=== PATIENT | male | born 1935 | race Caucasian/White ===

== ENCOUNTER 2017-02-13 12:17 | Outpatient (POV) | payer MEDICARE, SELFPAY | END 2017-02-13 14:13 | disposition home or self-care (01) | PROVIDERS: PCP Podiatrist; Visit Provider Podiatrist | DX: L60.0 Ingrowing nail (principal); E11.8 Type 2 diabetes mellitus with unspecified complications | CPT/HCPCS: 11730; 99202; G0127 ==

== ENCOUNTER 2017-02-27 13:23 | Outpatient (POV) | payer MEDICARE, SELFPAY | END 2017-02-27 16:49 | disposition home or self-care (01) | PROVIDERS: Visit Provider Podiatrist | DX: L60.0 Ingrowing nail (principal); L03.031 Cellulitis of right toe; E11.8 Type 2 diabetes mellitus with unspecified complications | CPT/HCPCS: 99212 ==

== ENCOUNTER → 2017-07-21 12:46 | Outpatient (CLI) | payer MEDICARE, SELFPAY ==
--- NOTE | 2017-07-21 13:01 | FL_ITS ---
FL barium swallow modified: 07/21/2017 1:01 PM CLINICAL HISTORY: Oral pharyngeal dysphasia ORDERING PHYSICIAN: Torsten Triana MD PATIENT AGE: 81 years TECHNIQUE: Patient administered varying consistencies of barium contrast, while viewed in lateral position under real-time fluoroscopy with cine recording. FLUOROSCOPY TIME: 2 minutes and 10 seconds The study was performed in conjunction with speech pathologist. Please see that report & recommendations. FINDINGS: Patient was given varying consistencies of barium. There was minimal penetration with thin liquid wash after mechanical soft and regular consistencies. No aries tracheal aspiration IMPRESSION. Minimal penetration with thin liquid wash after mechanical soft irregular consistencies. Please see speech pathologist report and recommendations.
--- NOTE | 2017-07-21 14:40 | HMH.SLMBS2 ---
Speech & Language Evaluation Speech/Language Mod Barium Swallow Start: 07/21/17 14:27 Freq: once Status: Complete Protocol: Document 07/21/17 14:35 MANSOOR (Rec: 07/21/17 14:40 MANSOOR [id number]) [facility] [place] Recommendations Diet Dietary Recommendations Regular Thin Liquids Treatment/Strategies Treatment Recommendation Compens. Strategy Educat. Strategy/Precaution Recommend Sitting Upright (90 deg) Chin Tuck Small Bites and Sips Alternate Liquids/Solids Mod Barium Swallow Impressions Summary and Impressions Oral Phase Impression No Impairment (WFL) Oral Phase Summary No impairment noted Pharyngeal Phase Impression Minimal Impairment Pharyngeal Phase Summary Slight penetration with thin liquid wash after mechanical soft and regular consistencies Speech/Language MBS Assessment/Goals/Plan Assessment Date of Evaluation: 07/21/17 Evaluation Type Initial Certification Assessment/Problems Dysphagia Patient reports, coughing and feels like food is stuck Does Patient Qualify for Service No Qualify/Failure Comment Therapy not recommended at this time Plan Pt/Guardian verbally ack understanding Yes of dx/prognosis/goals G -code Required Yes G-CODES ST Current Status [id number] ST Current Status Modifier CI-At least 1% but less than 20% impaired, limited or restricted ST Goal Status [id number] ST Goal Status Modifier CI-At least 1% but less than 20% impaired, limited or restricted Education Instructions provided Alternate between bite and sip , take small bite and small sips throughout meal, tuck chin if you feel something is stuck , and complete laryngeal elevation exercises 20Xs per day to strengthen laryngeal elevation. Pt/Caregiver able to recall information Able to recall/restate Mod Barium Swallow Setup Exam Setup Radiologist Edwin Mendez Level of Consciousness Awake Appropriate Position (degrees) 90 Mod Barium Swallow-Lat View Textures Lateral View Food Presentation Thin Liquid via Cup Thin Liquid via Straw Pureed Food- Thin
== END ==
PROVIDERS: PCP Internal Medicine Adolescent Medicine; Visit Provider Internal Medicine Adolescent Medicine
DX: R13.12 Dysphagia, oropharyngeal phase (principal)
CPT/HCPCS: 70371; 92611

== ENCOUNTER 2017-08-04 10:53 | Outpatient (RCR) | payer MEDICARE, SELFPAY ==
--- NOTE | 2017-08-04 13:41 | HMH.SLDYSPHA ---
Speech & Language Evaluation Speech/Language Dysphagia Evaluation Start: 08/04/17 13:16 Freq: ONCE Status: Active Protocol: Document 08/04/17 13:16 MANSOOR (Rec: 08/04/17 13:40 MANSOOR [id number]) Dysphagia Assess/Goals/Plan Assessment Date of Evaluation: 08/04/17 Evaluation Type Initial Certification Assessment/Problems Dysphagia Does Patient Qualify for Service Yes Qualify/Failure Comment Mr. Shoemaker had MBS on 07/21/17 where he showed no signs of dysphagia. Mr. Shoemaker reports he continues to have difficulty swallowing Recommendations PHYSICIAN CERTIFICATION: The specified therapy services are required, authorized, and reviewed every 30 days. Pt will be seen # times/week 1 for # weeks 6 Diet Recommendations Normal Liquid Type Recommendations Normal/Thin SL Swallow Guidelines Standard Aspiration Prec. Dysphagia Swallow Precautions/Strategies Sitting Upright (90 deg) Turn Head Left Small Bites and Sips Alternate Liquids/Solids Plan Anticipate reaching STG in # weeks 4 Anticipate reaching LTG in # weeks 6 Pt/Guardian verbally ack understanding Yes of dx/prognosis/goals G -code Required Yes G-CODES ST Current Status [id number] ST Current Status Modifier CI-At least 1% but less than 20% impaired, limited or restricted ST Goal Status [id number] ST Goal Status Modifier CI-At least 1% but less than 20% impaired, limited or restricted STG-Asp Before/Tongue Control Produce a forceful fk/ at the end of 10 words in #trials STG-Asp During/Laryngeal Closure Use head rotation to R/L w/wo cues in # 2 trials Use Valsalva maneuver w/wo cues in # 10 trials STG-Asp Aft/Pyrif.-Laryn.Elevation Produce i/in continuous fashion, incl. 20 fasetto in # trials First Calender Worker Goals Diet regular with Liquids Thin Liquids Education Instructions provided Mr. Shoemaker was given HEP to target goals at home to improve swallowing Speech & Language HPI History Present Illness Is this evaluation r/t stroke? No General Information General Current Food Consistancy Regular Facial Symmetry Symmetrical Patient Orientation Person Place Time
== END 2017-08-04 10:54 | disposition home or self-care (01) ==
LOC: ST 10:53
PROVIDERS: PCP Internal Medicine Adolescent Medicine; Visit Provider Internal Medicine Adolescent Medicine
DX: R13.12 Dysphagia, oropharyngeal phase (principal)
CPT/HCPCS: 92610

== ENCOUNTER 2018-02-24 12:06 | Observation (INO) ==
--- NOTE | 2018-02-24 15:34 | Consult Report ---
History of Present Illness Consult date: 02/24/18 Requesting physician: Torsten Triana Consult reason: chest pain Chief complaint: Chest pain Additional Medical History:: 1. Angina Class 111 a. Woke up this am with non-radiating chest pain. b. Lasting 2-3 seconds. c. Resolves with rest. 2. Dyspnea a. Increasing with exertion. 3. CAD a. History of CABG x5 (unknown year) 4. Essential Hypertension a. Controlled 5. Diabetes a. Insulin Dependent ( several years) b. Brittle 6. Hyperlipidemia a. On statin therapy History of present illness: 82 year old male admitted to [facility] for atypical chest pain. Pt stated he was being evaluated in Dr. Triana office for various jonatan issues. Pt stated he started having sharp pains over the Left breast area (non-radiating) which began this morning. Pt stated the sharp pain resolved in 2-3 seconds. Stated 2-3 episodes of chest pain since this morning. Pt complains of increase shortness of breath with exertion. Pt stated that for the past few weeks, he has been having increase shortness of breath with daily activities. Stated swelling of the lower extremities. No edema noted of the lower extremities during this assessment. Denies palpitations or dizziness. 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 Pt is a non-smoker. Pt is an insulin dependent diabetic which he stated is controlled. History of hypertension. Does have history of hyperlipidemia. Initial ECG revealed Normal sinus rhythm with sinus arrhythmia, left anterior fascicular block, prolonged QT with heart rate of 89bpm. CXR results are pending at this time along with initial lab results. Pt stated he has been evaluated by Dr. Villanueva in the past. Pt has not had any cardiac workup for 1-2 years. Discussed case with Dr. Villanueva. Recommend Echo cardiogram and left heart catheterization due to pt's angina symptoms, diabetes and coronary artery disease. Discussed benefits and risk of heart catheterization with right radial access. Pt agreeable to procedure. Left heart catheterization will be scheduled in am on 02/25/[address] Villanueva. Echocardiogram will be obtained also. [facility] History Medical History: Reports:: Cancer, Diabetes Mellitus Type 2, Hyperlipidemia, Hypertension, Myocardial Infarction Other Medical History: Reports: Anemia, Arthritis, Other Other Surgeries: Yes: Other Amputation: No Fractures: No - *Social History Educational Level: Completed High School Smoking Status: Former smoker Tobacco Type: cigarettes Smoking End Date: 1989 Alcohol Intake: former Substance Use Type: denies use Occupational Status: retired Housing: house Household Members: spouse - Psychiatric History Expresses thoughts of harming self/others: None Suicide Plan Description: No Plan *Family Hx:: Unable to obtain Meds Home Medications Medication Instructions Recorded Confirmed Type aspirin 81 mg tablet,delayed 81 mg PO ONCE tab 04/24/17 History release atorvastatin 10 mg tablet 10 mg PO ONCE 04/24/17 History insulin U- 100 regular human 100 10 unit SUB-Q TID ml 04/24/17 History unit/mL injection solution insulin detemir (U-100) 100 30 unit SUB-Q QHS ml 04/24/17 History unit/mL (3 mL) subcutaneous pen multivitamin,sc-dfpm-cqtqqilo 1 tab PO ONCE 04/24/17 History tablet oxybutynin chloride ER 10 mg 10 mg PO ONCE 04/24/17 History tablet,extended release 24 hr citalopram 20 mg tablet 20 mg PO 90 Days tab 10/23/17 History Allergies Allergy/AdvReac Type Severity Reaction Status Date / Time No Known Allergies Allergy Unverified 10/23/17 11:18 Review of Systems - Review of Systems Review of systems:: pertinent systems reviewed and negative unless documented below - Constitutional Reports weakness - *Cardiovascular Reports chest pain, Reports chest pain with activity, Reports shortness of breath, Reports shortness of breath with activity, Reports leg swelling - *Respiratory Reports shortness of breath, Reports shortness of breath with activity, Denies cough, Denies wheezing - *Gastrointestinal Denies abdominal pain, Denies bloating, Denies loose stools - *Musculoskeletal Reports muscle weakness, Denies abnormal walking, Denies numbness - Integumentary/Breasts Denies bleeding lesions, Denies rash - *Neurologic Reports weakness, Denies abnormal walking, Denies abnormal hearing, Denies dizziness, Denies numbness, Denies dizziness - Psychiatric Denies abnormal sleep pattern, Denies thoughts of hurting/killing yourself - Endocrine Denies rapid, pounding, or irregular heartbeat Exam Vital signs and Labs for Last 24 Hours: Temp Pulse Resp BP Pulse Ox 98.8 F 92 H 18 135/67 96 02/24/18 13:26 02/24/18 13:26 02/24/18 13:26 02/24/18 13:26 02/24/18 13:26 Laboratory Results - last 24 hr 02/24/18 14:20: Troponin I < 0.02 I & O for Last 24 hours: Intake & Output 02/21/18 02/22/18 02/23/18 02/24/18 23:59 23:59 23:59 23:59 Weight 207 lb 8 oz - Constitutional no acute distress, obese, cooperative - *Routine HEENT Exam Head: Present: normocephalic ENT: Present: mucous membranes moist - *Routine Neck Exam Present: supple, full ROM, normal carotid upstroke. Absent: JVD, carotid bruit - Routine Chest/Breast/Axilla Exam Chest wall: Absent: tenderness, mass, pacemaker - *Routine Respiratory Exam Present: accessory muscle use, CTA bilaterally. Absent: wheezes, distant breath sounds - *Routine Cardiovascular Exam Present: RRR, Normal S1, Normal S2. Absent: murmur, gallop, rubs, bradycardia, tachycardia, irregular rhythm, JVD - *Routine Abdominal Exam Present: soft, normoactive bowel sounds. Absent: distended, guarding, firm - *Routine Extremities Exam Present: full ROM, pulses intact, normal capillary refill. Absent: cyanosis, clubbing, edema - *Routine Skin Exam Present: intact, dry, warm. Absent: cyanosis, erythema - *Routine Neurological Exam Present: alert, oriented X3, CN II-XII intact, moving all extremities, normal speech - Routine Psychiatric Exam Present: normal affect, normal thought process, cooperative Assessment and Plan (1) Angina, class III Current visit: Yes Status: Acute Category: Medical Code(s): I20.9 - Angina pectoris, unspecified (2) Dyspnea Current visit: Yes Status: Acute Category: Medical Code(s): R06.00 - Dyspnea, unspecified (3) CAD (coronary artery disease) Current visit: Yes Status: Acute Category: Medical Code(s): I25.10 - Atherosclerotic heart disease of [place] coronary artery without angina pectoris (4) HTN (hypertension) Current visit: Yes Status: Acute Category: Medical Code(s): I10 - Essential (primary) hypertension (5) Diabetes Current visit: Yes Status: Acute Category: Medical Code(s): E11.9 - Type 2 diabetes mellitus without complications - Assessment and plan all Dx Assessment and Plan for all problems:: Plan: 1. Obtain Echocardiogram to assess LV function and valve status. 2. Schedule pt for Left heart catheterization in am (02/25/18) for Chest pain equivalent to Angina Class 111 symptoms. 3. NPO after midnight tonight (02/24/18). 4. Continue current medication regimen as per PCP.
[2018-02-24 15:39] LABS: Basophils % 0.4 % (0.1-2.0); Eosinophils # 0.3 K/mm3 (0.0-0.4); Eosinophils % 5.8 % (0.1-12.0); Hemoglobin 12.6 g/dL (14.1-18.0); Lymphocytes # 1.4 K/mm3 (0.7-4.5); Lymphocytes % 29.6 % (10-50); Mean Corpuscular HGB Conc 33.1 g/dL (31.8-35.4); Mean Corpuscular Hemoglobin 30.8 pg (27.0-31.2); Mean Platelet Volume 7.8 fl (7.4-10.4); Monocytes # 0.3 K/mm3 (0.1-1.0); Monocytes % 5.4 % (1.7-9.3); Neutrophils # 2.7 K/mm3 (1.8-7.8); Neutrophils % 58.7 % (37.0-80.0); Platelet Count 189 K/mm3 (142-424); Red Blood Count 4.09 M/mm3 (4.60-6.20); Red Cell Distribution Width 13.4 % (11.5-17.5); White Blood Count 4.6 K/mm3 (4.8-10.8)
[2018-02-24 15:54] LABS: Anion Gap 13.7 mEq/L (5-15); Calcium 8.8 mg/dL (8.5-10.1); Potassium 4.7 mmoL/L (3.5-5.1)
--- NOTE | 2018-02-25 07:29 | Pharmacy Consult Notes ---
[facility] Pharmacy VTE Monitoring - Patient Demographics Admission date: 02/24/18 Report Date: 02/25/18 Time: 07:29 Allergies/Adverse Reactions: Patient Allergies No Known Allergies Allergy (Unverified 10/23/17 11:18) Height: 1.75 m Weight: 91.739 kg Patient Problems: Current Active Problems Angina, class III (Acute) Dyspnea (Acute) CAD (coronary artery disease) (Acute) HTN (hypertension) (Acute) Diabetes (Acute) - VTE Risk Labs: VTE Related Lab Results Hgb 12.6 g/dL (14.1-18.0) L 02/24/18 15:00 Hct 38.0 % (42.0-52.0) L 02/24/18 15:00 Plt Count 189 K/mm3 (142-424) 02/24/18 15:00 BUN 29 mg/dL (7-18) H 02/24/18 15:00 Creatinine 1.60 mg/dL (0.70-1.30) H 02/24/18 15:00 Estimated Creat Clear 48 mL/min (50-200) 02/24/18 15:00 Was VTE Risk Assessment Performed: Yes VTE Risk Level: Very Low Risk - Prophylaxis VTE Prophylaxis Ordered?: Yes Types of VTE Prophylaxis: TEDS Knee High Location of Applied Device: Bilateral Lower Extremeties - VTE Diagnosis Confirmed Treatment or plan recommended: Continue Current Treatment
--- NOTE | 2018-02-25 08:13 | History & Physical Report ---
*Admission Date: 02/24/18 *Chief complaint: Chest pain *History of present illness: 82 year old male admitted to [facility] for atypical chest pain. Pt stated he was being evaluated in Dr. Triana office for various jonatan issues. Pt stated he started having sharp pains over the Left breast area (non-radiating) which began this morning. Pt stated the sharp pain resolved in 2-3 seconds. Stated 2-3 episodes of chest pain since this morning. Pt complains of increase shortness of breath with exertion. Pt stated that for the past few weeks, he has been having increase shortness of breath with daily activities. Stated swelling of the lower extremities. No edema noted of the lower extremities during this assessment. Denies palpitations or dizziness. 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 Pt is a non-smoker. Pt is an insulin dependent diabetic which he stated is controlled. History of hypertension. Does have history of hyperlipidemia. Patient over the past year or so has had increasing problems with anxiety, he has been significantly afflicted with nighttime delusions and hallucinatory b ehavior, and in fact has contemplated suicide according to his who has been diligent about keeping his home supply of firearms away from him. 3- 4 weeks ago the patient and his discussed this with me. It turns out he had not been taking his alprazolam for several weeks although I am honestly unsure about medication issues as he and his are very confused about what medicine he takes at home. He had been on citalopram which I stopped 2 weeks ago because of significant nausea with the medication and is feeling that it was making things worse. We restarted his alprazolam which helped with a lot of his anxiety symptoms but did not help with his nighttime depression issues and sleep issues. At that visit 1 week ago I started low-dose Seroquel which his states helped him sleep but not do much for his anxiety and they returned for the visit on the day of admission at which she complained of the chest pain and he was admitted as noted in the first paragraph of this H&P. [facility] History I have reviewed the patient's past medical history: Yes Medical History: Reports:: Cancer, Diabetes Mellitus Type 2, Hyperlipidemia, Hypertension, Myocardial Infarction Other Medical History: Reports: Anemia, Arthritis, Other Other Surgeries: Yes: Other Amputation: No Fractures: No - *Social History Educational Level: Completed High School Smoking Status: Former smoker Tobacco Type: cigarettes Smoking End Date: 1989 Alcohol Intake: former Substance Use Type: denies use Occupational Status: retired Housing: house Household Members: spouse - Psychiatric History Expresses thoughts of harming self/others: None Suicide Plan Description: No Plan *Family Hx:: Unable to obtain Review of Systems - Review of Systems Review of systems:: pertinent systems reviewed and negative unless documented below - Constitutional Denies anorexia, Denies body ache(s), Denies chills - Eyes Reports change in vision, Denies blind spots, Denies blurry vision - ENT Denies abnormal hearing, Denies bleeding gums, Denies change in voice - *Cardiovascular Reports chest pain, Reports chest pain at rest, Reports chest pain with activity, Reports shortness of breath, Reports shortness of breath with activity, Denies irregular heart rhythm, Denies leg swelling - *Respiratory Denies change in phlegm color, Denies chest congestion, Denies cough, Denies shortness of breath with activity - *Gastrointestinal Denies abdominal pain, Denies belching, Denies bloating - *Genitourinary Denies difficulty urinating - *Musculoskeletal Reports abnormal walking (Weakness in both legs) - Integumentary/Breasts Denies acne, Denies hair loss - *Neurologic Reports weakness, Denies abnormal walking, Denies abnormal hearing, Denies dizziness, Denies numbness, Denies dizziness - Endocrine Denies cold intolerance, Denies excessive sweating - Hematologic/Lymphatic Denies easy bleeding Meds Home Medications Medication Instructions Recorded Confirmed Type ALPRAZolam [Xanax 0.5mg tab] 0.5 mg PO BID 02/25/18 02/25/18 History Insulin Glargine,Hum.rec.anlog 30 unit SQ HS 02/25/18 02/25/18 History [Venice Bolden] Quetiapine Fumarate 50 mg PO HS 02/25/18 02/25/18 History Ropinirole HCl 1 mg PO HS 02/25/18 02/25/18 History Allergies Allergy/AdvReac Type Severity Reaction Status Date / Time No Known Allergies Allergy Unverified 10/23/17 11:18 Exam Vital signs and Labs for Last 24 Hours: Temp Pulse Resp BP Pulse Ox 98.6 F 89 16 129/54 L 94 L 02/25/18 04:00 02/25/18 04:00 02/25/18 04:00 02/25/18 04:00 02/25/18 04:00 Laboratory Results - last 24 hr 02/24/18 14:20: Troponin I < 0.02 02/24/18 15:00: WBC 4.6 L, RBC 4.09 L, Hgb 12.6 L, Hct 38.0 L, MCV 93.0, MCH 30.8, MCHC 33.1, RDW 13.4, Plt Count 189, MPV 7.8, Neut % (Auto) 58.7, Lymph % (Auto) 29.6, [place] % (Auto) 5.4, Eos % (Auto) 5.8, Baso % (Auto) 0.4, Neut # (Auto) 2.7, Lymph # (Auto) 1.4, [place] # (Auto) 0.3, Eos # (Auto) 0.3, Baso # (Auto) 0.0 02/24/18 15:00: Sodium 137, Potassium 4.7, Chloride 103, Carbon Dioxide 25, Anion Gap 13.7, BUN 29 H, Creatinine 1.60 H, Estimated Creat Clear 48, Estimated GFR 42 L, Est GFR ( Amer) 50 L, Glucose 352 H, Calcium 8.8, Magnesium 2.0 02/24/18 17:11: POC Glucose 342 H* 02/24/18 18:53: Troponin I < 0.02 02/24/18 20:20: POC Glucose 323 H* 02/24/18 23:16: Troponin I < 0.02 02/25/18 06:10: POC Glucose 256 H I & O for Last 24 hours: Intake & Output 02/22/18 02/23/18 02/24/18 02/25/18 11:59 11:59 11:59 11:59 Intake Total 630 / 630 Balance 630 / 630 Weight 202 lb 4 oz Narrative: In the office patient was pleasant. Oriented x2. Very anxious appearing. Unable to give a coherent timeline medication or symptoms. His provided most of the history. Lungs are clear bilaterally, heart rate regular. Abdomen soft. No edema. Diminished distal pulses but present. Extremities are warm and well-perfused otherwise. Moves all extremities well. Is very weak and is unable to get on the exam table under his own power. Oropharynx clear, no JVD. Assessment and Plan (1) Angina, class III Current visit: Yes Status: Acute Category: Medical Code(s): I20.9 - Angina pectoris, unspecified (2) Dyspnea Current visit: Yes Status: Acute Category: Medical Code(s): R06.00 - Dyspnea, unspecified (3) CAD (coronary artery disease) Current visit: Yes Status: Acute Category: Medical Code(s): I25.10 - Atherosclerotic heart disease of [place] coronary artery without angina pectoris (4) HTN (hypertension) Current visit: Yes Status: Acute Category: Medical Code(s): I10 - Essential (primary) hypertension (5) Diabetes Current visit: Yes Status: Acute Category: Medical Code(s): E11.9 - Type 2 diabetes mellitus without complications - Assessment and plan all Dx Assessment and Plan for all problems:: Given significant comorbidities we will admit to hospital. Cardiology consultation. I anticipate patient would benefit from left heart catheterization. Given his significant anxiety issues I will ask for our psychiatry consult service. Hold Heavenly currently. Zachariah as needed we will continue.
--- NOTE | 2018-02-25 09:16 | Progress Note ---
Addendum entered and electronically signed by Delaney Red APRN 02/25/18 16:04: Left Heart catheterization revealed: 1. [place] three-vessel coronary artery disease as described above 2. Widely patent 5 vessel bypass surgery with wide patency of the grafts 3. Hyperdynamic ventricle consistent with hypertensive heart disease 4. Normal left ventricular end-diastolic pressure PLAN: 1. Patient requires medical management 2. Maximize antianginal medications including beta blockers and amlodipine nitrates and or Ranexa 3. LDL less than 55 4. Cardiac rehabilitation 5. Risk factor modification Pt is doing fine after procedure. Pt started on Bisoprolol 5mg and Norvasc 5mg daily for angina. Original Note: Subjective Date: 02/25/18 Time: 08:00 Principal diagnosis: Chest pain Interval history: 82 year old male admitted to [facility] for chest pain on 02/24/18. Pt is doing well this am. Nursing staff stated that pt was very confused this am upon the early childhood educator aide assessment. Per Dr. Merlos, pt does have history of Dementia. Pt stated "I am just not sure why they would not give me my sleeping medication". is a bedside at this time. stated she was not able to stay overnight with him last night, so that mybe why pt was disoriented this morning. Pt is alert and oriented to person and place at this time. Denies chest pain, tightness or pressure. Denies shortness of breath. No swelling noted of the lower extremities. VS stable. pvc monitor revealed sinus rhythm with no ectopy. Pt denies palpitations or dizziness. Nursing staff stated that pt was hallicunating last night. Echocardiogram was performed this morning. Preliminary report reveals thickness of the Aortic and Mitral valve. Mild Mitral valve and Tricuspid valve regurgitation. EF is predicted as greater than 55%. Final report is pending. Pt is scheduled this am for left heart catetherization. Pt and verbalize understanding of procedure. Dr. Triana is agreeable to plan. Will defer adding any additional medications until after catheterization results. Exam Vital signs and Labs for Last 24 Hours: Temp Pulse Resp BP Pulse Ox 97.2 F L 91 H 17 146/70 H 97 02/25/18 08:00 02/25/18 08:00 02/25/18 08:00 02/25/18 08:00 02/25/18 08:00 Laboratory Results - last 24 hr 02/24/18 14:20: Troponin I < 0.02 02/24/18 15:00: WBC 4.6 L, RBC 4.09 L, Hgb 12.6 L, Hct 38.0 L, MCV 93.0, MCH 30.8, MCHC 33.1, RDW 13.4, Plt Count 189, MPV 7.8, Neut % (Auto) 58.7, Lymph % (Auto) 29.6, [place] % (Auto) 5.4, Eos % (Auto) 5.8, Baso % (Auto) 0.4, Neut # (Auto) 2.7, Lymph # (Auto) 1.4, [place] # (Auto) 0.3, Eos # (Auto) 0.3, Baso # (Auto) 0.0 02/24/18 15:00: Sodium 137, Potassium 4.7, Chloride 103, Carbon Dioxide 25, Anion Gap 13.7, BUN 29 H, Creatinine 1.60 H, Estimated Creat Clear 48, Estimated GFR 42 L, Est GFR ( Amer) 50 L, Glucose 352 H, Calcium 8.8, Magnesium 2.0 02/24/18 17:11: POC Glucose 342 H* 02/24/18 18:53: Troponin I < 0.02 02/24/18 20:20: POC Glucose 323 H* 02/24/18 23:16: Troponin I < 0.02 02/25/18 06:10: POC Glucose 256 H I & O for Last 24 hours: Intake & Output 02/22/18 02/23/18 02/24/18 02/25/18 23:59 23:59 23:59 23:59 Intake Total 630 / 630 0 / 0 Balance 630 / 630 0 / 0 Weight 207 lb 8 oz 202 lb 4 oz - Constitutional no acute distress, obese, cooperative - *Routine HEENT Exam Head: Present: normocephalic - *Routine Neck Exam Present: supple, full ROM, normal carotid upstroke. Absent: JVD, carotid bruit - Routine Chest/Breast/Axilla Exam Chest wall: Present: tenderness. Absent: mass, pacemaker - *Routine Respiratory Exam Present: accessory muscle use, CTA bilaterally. Absent: respiratory distress, wheezes, crackles - *Routine Cardiovascular Exam Present: RRR, Normal S1, Normal S2. Absent: murmur, gallop, rubs, irregular rhythm, irregularly irregular - *Routine Abdominal Exam Present: soft, normoactive bowel sounds. Absent: tenderness, distended, firm - *Routine Extremities Exam Present: full ROM, pulses intact, normal capillary refill. Absent: cyanosis, clubbing, edema - *Routine Skin Exam Present: intact, dry, warm. Absent: cyanosis, erythema, lesions - *Routine Neurological Exam Present: alert, CN II-XII intact, moving all extremities, normal speech Pt is alert and oriented to person and place only. - Routine Psychiatric Exam Present: normal affect Progress Note: A&P (1) Angina, class III Status: Acute Current Visit: Yes (2) Dyspnea Status: Acute Current Visit: Yes (3) CAD (coronary artery disease) Status: Acute Current Visit: Yes (4) HTN (hypertension) Status: Acute Current Visit: Yes (5) Diabetes Status: Acute Current Visit: Yes Assessment and Plan for All Diagnoses:: Plan: 1. Left Heart Catheterization today. 2. Pending results of heart catheterization, may need to add additional medications to pt's daily medication regimen.
[2018-02-26 07:15] LABS: Basophils % 0.7 % (0.1-2.0); Eosinophils # 0.3 K/mm3 (0.0-0.4); Eosinophils % 6.5 % (0.1-12.0); Hematocrit 36.2 % (42.0-52.0); Hemoglobin 12.1 g/dL (14.1-18.0); Lymphocytes # 1.3 K/mm3 (0.7-4.5); Lymphocytes % 30.3 % (10-50); Mean Corpuscular HGB Conc 33.4 g/dL (31.8-35.4); Mean Corpuscular Hemoglobin 30.7 pg (27.0-31.2); Mean Corpuscular Volume 91.8 fl (80-94); Mean Platelet Volume 7.3 fl (7.4-10.4); Monocytes # 0.3 K/mm3 (0.1-1.0); Monocytes % 7.1 % (1.7-9.3); Neutrophils # 2.4 K/mm3 (1.8-7.8); Neutrophils % 55.4 % (37.0-80.0); Platelet Count 172 K/mm3 (142-424); Red Blood Count 3.94 M/mm3 (4.60-6.20); Red Cell Distribution Width 13.3 % (11.5-17.5); White Blood Count 4.4 K/mm3 (4.8-10.8)
[2018-02-26 07:25] LABS: Albumin Level 3.1 gm/dL (3.4-5.0); Albumin/Globulin Ratio 0.8 (1.1-1.8); Anion Gap 14.8 mEq/L (5-15); Bilirubin,Total 0.5 mg/dL (0.2-1.0); Calcium 8.5 mg/dL (8.5-10.1); Globulin 3.9 gm/dl (1.3-3.2); Potassium 3.8 mmoL/L (3.5-5.1)
--- NOTE | 2018-02-26 09:22 | Progress Note ---
Subjective Date: 02/26/18 Time: 09:19 Principal diagnosis: Chest pain Interval history: 82 yo WM in bed in NAD. at bedside. Patient will get up and ambulate some this a.m. and if no complaints then anticipate discharge home later today. Cath site okay. Exam Vital signs and Labs for Last 24 Hours: Temp Pulse Resp BP Pulse Ox 97.0 F L 91 H 20 125/74 95 02/26/18 08:00 02/26/18 08:00 02/26/18 08:00 02/26/18 08:00 02/26/18 08:00 Laboratory Results - last 24 hr 02/25/18 11:46: POC Glucose 284 H 02/25/18 16:30: POC Glucose 225 H 02/25/18 20:34: POC Glucose 337 H* 02/26/18 06:16: POC Glucose 275 H 02/26/18 06:55: WBC 4.4 L, RBC 3.94 L, Hgb 12.1 L, Hct 36.2 L, MCV 91.8, MCH 30.7, MCHC 33.4, RDW 13.3, Plt Count 172, MPV 7.3 L, Neut % (Auto) 55.4, Lymph % (Auto) 30.3, [place] % (Auto) 7.1, Eos % (Auto) 6.5, Baso % (Auto) 0.7, Neut # (Auto) 2.4, Lymph # (Auto) 1.3, [place] # (Auto) 0.3, Eos # (Auto) 0.3, Baso # (Auto) 0.0 02/26/18 06:55: Sodium 140, Potassium 3.8, Chloride 105, Carbon Dioxide 24, Anion Gap 14.8, BUN 17 D, Creatinine 1.23 D, Estimated Creat Clear 61, Estimated GFR 56 L, Est GFR ( Amer) 68 D, Glucose 255 H, Calcium 8.5, Total Bilirubin 0.5, AST 13 L, ALT 21, Total Protein 7.0, Albumin 3.1 L, Globulin 3.9 H, Albumin/Globulin Ratio 0.8 L I & O for Last 24 hours: Intake & Output 02/23/18 02/24/18 02/25/18 02/26/18 11:59 11:59 11:59 11:59 Intake Total 630 / 630 1137 / 1137 Output Total 600 / 600 Balance 1137 / 1137 Weight 202 lb 4 oz 202 lb - *Routine Respiratory Exam Present: CTA bilaterally. Absent: accessory muscle use, rales, rhonchi, wheezes - *Routine Cardiovascular Exam Present: RRR. Absent: murmur, gallop, rubs Progress Note: A&P (1) Dyspnea Status: Acute Current Visit: Yes (2) CAD (coronary artery disease) Status: Acute Current Visit: Yes (3) HTN (hypertension) Status: Acute Current Visit: Yes (4) Diabetes Status: Acute Current Visit: Yes Assessment and Plan for All Diagnoses:: Angina pectoris with patent bypass grafts. Symptoms felt secondary to hyperdynamic left ventricular ejection fraction. Patient has been started on beta-rosalia and Norvasc therapy for treatment. Blood pressure and heart rate controlled. Anticipate discharge home later today with follow-up next week.
--- NOTE | 2018-02-26 10:38 | Cardiology Report ---
PROCEDURE: 2-D M-mode and color Doppler study INDICATIONS FOR THE TEST: Chest pain + COPD Heart Murmur Tobacco Smoking Palpitations Fatigue Syncope Edema Hypertension+Diabetes Mellitus+ Rheumatic Fever SOB+DIAZ Obesity Hyperlipidemia+ Family History HDCAD, CABGX5, CA, OLD [place] Additional History TDE,POOR WINDOWS PATIENT INFORMATION HEIGHT: 69 WEIGHT:207 GENDER: Male B/P:135/67 2-D/M-MODE INTERPRETATION: 2-D MEASUREMENTS OBSERVED VALUES IN CMS Right Ventricular Dimension (RVDd) 2.0 Interventricular Septum (Thickness)(IVsd) 1.9 Left Ventricular Internal Dimensions(LVIDd) 3.9 Left Ventricular Posterior Wall (Thickness)(LVPWd) 1.2 Aortic Root 3.9 Aortic Cusp Separation 1.3 Left Atrial Dimensions (LAD) 3.9 2D 1. Technically difficult study because of the patient's factor and poor acoustic windows. 2. The left atrium is mildly enlarged, left ventricle is normal size, there is mild concentric left ventricular hypertrophy, visually estimated ejection fraction 55% with no regional wall motion abnormality, endocardial surfaces are very poorly visualized. 3. The right atrium and right ventricle are normal size and contractility. 4. The aortic valve is thickened and calcified, morphologically there is at least moderate aortic stenosis. 5. The mitral valve has mitral annular calcification, mitral valve leaflets are minimally thickened., Systolic anterior motion of the mitral valve cannot be excluded. 6. The tricuspid valve is grossly normal. 7. There is trivial pericardial effusion noted. 8. The pulmonic valve is poorly visualized. DOPPLER INTERROGATION: There is increased velocity seen in the left ventricular outflow tract whether this is due to aortic stenosis are dynamic left ventricular outflow track obstruction it is difficult to ascertain from this study. There is no aortic insufficiency. Doppler evidence of impaired LV relaxation seen, there is no tissue Doppler performed. Mild mitral and tricuspid regurgitation. Tricuspid regurgitation jet velocity is inadequate for calculation of the right ventricular systolic pressure. CONCLUSION: 1. Technically difficult study because of the patient's factor and poor acoustic windows. A repeat study with Definity contrast is recommended. 2. Left atrium is mildly enlarged, left ventricle is normal size, mild concentric left ventricular hypertrophy, visually estimated ejection fraction of 55% with no regional wall motion abnormality, Doppler evidence of impaired LV relaxation seen. 3. Thickened and calcified aortic valve morphologically there is moderate aortic stenosis, there is increased velocity seen in the left ventricular outflow track whether this is secondary to aortic stenosis or dynamic obstruction is difficult to affecting from this study, a repeat study with better Doppler technique is recommended. 4. Mild mitral and tricuspid regurgitation. 5. No significant pericardial effusion noted.
--- NOTE | 2018-02-26 13:56 | Consult Report ---
*Admission Date: 02/24/18 *Chief complaint: 'Sometimes I am ready to give up on things'. *History of present illness: I saw patient in his room; he was accompanied by his . He states that he feels down and depressed often. He informs me of the following: -he was origionally admitted here for cardiac reasons -he was having chest pain in Dr. Triana's office -he thinks this really might be anxiety (patient believes this) -he also told Dr. Triana some things that might be concerning (per his ) -sometimes he feels like giving up on everything; including life -he sometimes has thoughts to hurt himself; denies that he ever has a plan to do this -states that he doesn't think he would do anything related to his kids and grandkids -he still socializes with friends -they also run a far at their house -he stated that 'if someone were going to hurt me; I don't think i would take away from them.' -when I asked him to clarify this; he stated that he would not let someone intentionally hurt him -he does get anxious often -he is jittery inside -he states that he sees things on tv and this really affects him sometimes -like if someone were breaking into his house; he thinks about what he would do to this person to protect his house and his family -he states that he someone 'came in on my; i'd have to pop one' -he denies that he would do something to someone just at random; only in protection -the issue that he has now is that he can't let things go; once it is on his mind; he will constant replay things over and over in his head -this has been going on for a few years -has recently gotten worse -he has also been a little bit more down lately -not wanting to do as much; keeping to himself; wanting to go [place] the farm by himself - will not let him do this alone -he is still care for his self-care needs (showering; brushing teeth; etc) -he does think sometimes that he is ready to leave the earth -but then thinks that he can't be ready cause he is still here -he is getting fixated on things that happened in the past; people that did him wrong in the past; and he can't let things go -denies any paranoia RECOMMENDATIONS: 1. Start on an SSRI; like Lexapro 10mg daily. This is for depression, anxiety, and the obsessive thoughts. 2. Follow-up with myself in the speciality clinic in 2 weeks or with another mental health provider. [facility] History Medical History: Reports:: Cancer, Diabetes Mellitus Type 2, Hyperlipidemia, Hypertension, Myocardial Infarction Other Medical History: Reports: Anemia, Arthritis, Other Other Surgeries: Yes: Other Amputation: No Fractures: No - *Social History Educational Level: Completed High School Smoking Status: Former smoker Tobacco Type: cigarettes Smoking End Date: 1989 Alcohol Intake: former Substance Use Type: denies use Occupational Status: retired Housing: house Household Members: spouse - Psychiatric History Expresses thoughts of harming self/others: None Suicide Plan Description: No Plan *Family Hx:: Unable to obtain Review of Systems - *Neurologic Reports weakness, Denies abnormal walking, Denies abnormal hearing, Denies dizziness, Denies numbness, Denies dizziness Meds Home Medications Medication Instructions Recorded Confirmed Type ALPRAZolam [Xanax 0.5mg tab] 0.5 mg PO BID 02/25/18 02/25/18 History Insulin Glargine,Hum.rec.anlog 30 unit SQ HS 02/25/18 02/25/18 History [[place] Goffostnaomie] Insulin Regular, Human [Novolin R] 30 units SQ TID 02/25/18 02/25/18 History Quetiapine Fumarate 50 mg PO HS 02/25/18 02/25/18 History Ropinirole HCl 1 mg PO HS 02/25/18 02/25/18 History Allergies Allergy/AdvReac Type Severity Reaction Status Date / Time No Known Allergies Allergy Unverified 10/23/17 11:18 Exam Vital signs and Labs for Last 24 Hours: Temp Pulse Resp BP Pulse Ox 97.1 F L 89 18 126/72 96 02/26/18 11:32 02/26/18 11:32 02/26/18 11:32 02/26/18 11:32 02/26/18 11:32 Laboratory Results - last 24 hr 02/25/18 16:30: POC Glucose 225 H 02/25/18 20:34: POC Glucose 337 H* 02/26/18 06:16: POC Glucose 275 H 02/26/18 06:55: WBC 4.4 L, RBC 3.94 L, Hgb 12.1 L, Hct 36.2 L, MCV 91.8, MCH 30.7, MCHC 33.4, RDW 13.3, Plt Count 172, MPV 7.3 L, Neut % (Auto) 55.4, Lymph % (Auto) 30.3, [place] % (Auto) 7.1, Eos % (Auto) 6.5, Baso % (Auto) 0.7, Neut # (Auto) 2.4, Lymph # (Auto) 1.3, [place] # (Auto) 0.3, Eos # (Auto) 0.3, Baso # (Auto) 0.0 02/26/18 06:55: Sodium 140, Potassium 3.8, Chloride 105, Carbon Dioxide 24, Anion Gap 14.8, BUN 17 D, Creatinine 1.23 D, Estimated Creat Clear 61, Estimated GFR 56 L, Est GFR ( Amer) 68 D, Glucose 255 H, Calcium 8.5, T otal Bilirubin 0.5, AST 13 L, ALT 21, Alkaline Phosphatase 70, Total Protein 7.0, Albumin 3.1 L, Globulin 3.9 H, Albumin/Globulin Ratio 0.8 L 02/26/18 11:22: POC Glucose 340 H* I & O for Last 24 hours: Intake & Output 02/24/18 02/25/18 02/26/18 02/27/18 11:59 11:59 11:59 11:59 Intake Total 630 / 630 1137 / 1137 240 / 240 Output Total 600 / 600 Balance 1137 / 1137 240 / 240 Weight 202 lb 4 oz 202 lb Internal Medicine - CN: Reslt - Labs CBC & Chem 7: 02/26/18 06:55 02/26/18 06:55 Labs: Short CBC 02/26/18 Range/Units 06:55 WBC 4.4 L (4.8-10.8) K/mm3 Hgb 12.1 L (14.1-18.0) g/dL Hct 36.2 L (42.0-52.0) % Plt Count 172 (142-424) K/mm3 [facility] 02/26/18 06:55 Sodium 140 Potassium 3.8 Chloride 105 Carbon Dioxide 24 BUN 17 D Creatinine 1.23 D Glucose 255 H Calcium 8.5 Liver Function 02/26/18 Range/Units 06:55 Total Bilirubin 0.5 (0.2-1.0) mg/dL AST 13 L (15-37) U/L ALT 21 (12-78) U/L Alkaline Phosphatase 70 (46-116) U/L Albumin 3.1 L (3.4-5.0) gm/dL Assessment and Plan (1) Dyspnea Current visit: Yes Status: Acute Category: Medical Code(s): R06.00 - Dy spnea, unspecified (2) CAD (coronary artery disease) Current visit: Yes Status: Acute Category: Medical Code(s): I25.10 - Atherosclerotic heart disease of [place] coronary artery without angina pectoris (3) HTN (hypertension) Current visit: Yes Status: Acute Category: Medical Code(s): I10 - Essential (primary) hypertension (4) Diabetes Current visit: Yes Status: Acute Category: Medical Code(s): E11.9 - Type 2 diabetes mellitus without complications
--- NOTE | 2018-02-26 14:18 | Discharge Summary ---
General - General Admission date:: 02/24/18 Discharge date: 02/26/18 HPI HPI: 82 year old male admitted to [facility] for atypical chest pain. Pt stated he was being evaluated in Dr. Triana office for various jonatan issues. Pt stated he started having sharp pains over the Left breast area (non-radiating) which began this morning. Pt stated the sharp pain resolved in 2-3 seconds. Stated 2-3 episodes of chest pain since this morning. Pt complains of increase shortness of breath with exertion. Pt stated that for the past few weeks, he has been having increase shortness of breath with daily activities. Stated swelling of the lower extremities. No edema noted of the lower extremities during this assessment. Denies palpitations or dizziness. 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 Pt is a non-smoker. Pt is an insulin dependent diabetic which he stated is controlled. History of hypertension. Does have history of hyperlipidemia. Patient over the past year or so has had increasing problems with anxiety, he has been significantly afflicted with nighttime delusions and hallucinatory behavior, and in fact has contemplated suicide according to his who has been diligent about keeping his home supply of firearms away from him. 3- 4 weeks ago the patient and his discussed this with me. It turns out he had not been taking his alprazolam for several weeks although I am honestly unsure about medication issues as he and his are very confused about what medicine he takes at home. He had been on citalopram which I stopped 2 weeks ago because of significant nausea with the medication and is feeling that it was making things worse. We restarted his alprazolam which helped with a lot of his anxiety symptoms but did not help with his nighttime depression issues and sleep issues. At that visit 1 week ago I started low-dose Seroquel which his states helped him sleep but not do much for his anxiety and they returned for the visit on the day of admission at which she complained of the chest pain and he was admitted as noted in the first paragraph of this H&P. Hospital Course Hospital Course: Patient was admitted for serial enzymes and cardiology consult. Serial enzymes were obtained which were normal. Cardiology was consulted and patient was taken for left heart cath which did not require intervention. See cath report. Echo was obtained which showed moderate Aortic Stenosis, EF 55%. PT/OT was consulted who felt he was inappropriate for skilled care, but would benefit from PT/OT at home. Patient has had ongoing issues with anxiety, depression and worsening sun- downing behaviors. Behavioral Health was consulted who recommended adding SSRI. Overall, he feels fairly well and wants to go home. Discharge home with home health for PT/OT. Start Lexapro 10 mg po daily. See medication reconciliation for complete list. FU with Dr. Triana in [place] on 03/03. FU with Cardiology in one week and Behavioral Health in 2 weeks. Objective Vital signs: Temp Pulse Resp BP Pulse Ox 97.1 F L 89 18 126/72 96 02/26/18 11:32 02/26/18 11:32 02/26/18 11:32 02/26/18 11:32 02/26/18 11:32 Narrative: Alert and oriented x3. Rate and rhythm regular. Trace LE edema. Lung sounds clear and equal. Abdomen soft and nontender Results Labs on day of discharge: Labs from last 24 hours 02/26/18 02/26/18 02/26/18 11:22 06:55 06:55 WBC 4.4 L RBC 3.94 L Hgb 12.1 L Hct 36.2 L MCV 91.8 MCH 30.7 MCHC 33.4 RDW 13.3 Plt Count 172 MPV 7.3 L Neut % (Auto) 55.4 Lymph % (Auto) 30.3 [place] % (Auto) 7.1 Eos % (Auto) 6.5 Baso % (Auto) 0.7 Neut # (Auto) 2.4 Lymph # (Auto) 1.3 [place] # (Auto) 0.3 Eos # (Auto) 0.3 Baso # (Auto) 0.0 Sodium 140 Potassium 3.8 Chloride 105 Carbon Dioxide 24 Anion Gap 14.8 BUN 17 D Creatinine 1.23 D Estimated Creat Clear 61 Estimated GFR 56 L Est GFR ( Amer) 68 D Glucose 255 H POC Glucose 340 H* Calcium 8.5 Total Bilirubin 0.5 AST 13 L ALT 21 Alkaline Phosphatase 70 Total Protein 7.0 Albumin 3.1 L Globulin 3.9 H Albumin/Globulin Ratio 0.8 L 02/26/18 02/25/18 02/25/18 06:16 20:34 16:30 WBC RBC Hgb Hct MCV MCH MCHC RDW Plt Count MPV Neut % (Auto) Lymph % (Auto) [place] % (Auto) Eos % (Auto) Baso % (Auto) Neut # (Auto) Lymph # (Auto) [place] # (Auto) Eos # (Auto) Baso # (Auto) Sodium Potassium Chloride Carbon Dioxide Anion Gap BUN Creatinine Estimated Creat Clear Estimated GFR Est GFR ( Amer) Glucose POC Glucose 275 H 337 H* 225 H Calcium Total Bilirubin AST ALT Alkaline Phosphatase Total Protein Albumin Globulin Albumin/Globulin Ratio DS: Diagnosis - Discharge Diagnosis (1) Dyspnea Status: Resolved (2) CAD (coronary artery disease) Status: Chronic (3) HTN (hypertension) Status: Chronic (4) Diabetes Status: Chronic (5) Depression with anxiety Status: Acute Discharge Plan - Patient Discharge Instructions ACTIVITY: Continue current activity DIET: continue same diet Patient Instructions: Cardiac Catheterization, DI for Chest Pain, Surgical Site Infection - Follow up Plan Follow up with: Torsten Triana MD [Primary Care Provider] - 03/03/18 Wil Villanueva MD [Staff Physician] - 1 week Ramila Guzman APRN [Nurse Practitioner] - 2 weeks Disposition: Home Health Service Home Medications: Home Medications Medication Instructions Recorded Confirmed Type ALPRAZolam [Xanax 0.5mg tab] 0.5 mg PO BID 02/25/18 02/25/18 History Insulin Glargine,Hum.rec.anlog 30 unit SQ HS 02/25/18 02/25/18 History [[place] Solostar] Insulin Regular, Human [Novolin R] 30 units SQ TID 02/25/18 02/25/18 History Quetiapine Fumarate 50 mg PO HS 02/25/18 02/25/18 History Ropinirole HCl 1 mg PO HS 02/25/18 02/25/18 History Prescriptions/Medication Reconciliation: New Aspirin [Aspirin 81mg chewable tab] 81 mg PO DAILY tab.chew Atorvastatin Calcium [Lipitor 40mg Tablet] 40 mg PO HS #30 tablet Bisoprolol Fumarate [Zebeta 5mg tablet] 5 mg PO DAILY #30 tablet Escitalopram Oxalate [Lexapro] 10 mg PO DAILY #30 tablet Amlodipine Besylate [Norvasc 5mg tablet] 5 mg PO DAILY #30 tablet Continue Ropinirole HCl 1 mg PO HS ALPRAZolam [Xanax 0.5mg tab] 0.5 mg PO BID Insulin Glargine,Hum.rec.anlog [[place] Bolden] 30 unit SQ HS Quetiapine Fumarate 50 mg PO HS Insulin Regular, Human [Novolin R] 30 units SQ TID
== END 2018-02-26 17:03 | disposition home health service (06) ==
LOC: 2ND
PROVIDERS: ADMIT Internal Medicine Adolescent Medicine; ATTEND Internal Medicine Adolescent Medicine
CPT/HCPCS: 36415; 70450; 71020; 71046; 80048; 80053; 82962; 83735; 84484; 85025; 93005; 93306; 93459; 97161; 97165; 99152; C1725; C1769; C1894; G0378; J1644; Q9967

== ENCOUNTER → 2018-03-12 07:48 | Outpatient (CLI) | payer MEDICARE, SELFPAY ==
--- NOTE | 2018-03-12 07:52 | US_ITS ---
US Arterial Ankle Brachial Ind Ordering Physician: Wil Villanueva MD Patient Age: 82 years: Male HISTORY: ITS.REASON: z Diabetes. Previous smoker bilateral claudication most pronounced left leg claudication. Numbness of feet. Hypertension. CAD. TECHNIQUE: Segmental pressures obtained of both right and left leg. These are compared to brachial blood pressure to yield index at each level sampled including summary JONATAN. The data sheets from the procedure are available in PACS FINDINGS Rest study only performed today No prior studies available for comparison. Blood pressures reported are in millimeters mercury. . Right JONATAN = 1.2. Right TBI 1.3 Brachial BP: 113 Thigh BP: BP 200. Index 1.54 Calf BP: BP 218 index 1.68 Ankle PT: BP 161 index 1.24 Ankle DP : BP 175-index 1.3 Digit =BP 169 with index 1.3 . Left JONATAN = 1.4. Left TBI = 1.0 Brachial BPD: 1:30 Thigh BP: 193 with index 1.48 Calf BP: 248 with index 1.91 Ankle PT:180 with index 1.38 Ankle DP: BP 181 with index 1.39 Digit = BP 123 with index 0.95 Pulses and waveforms: Diminished waveform left ankle other normal with normal pulses. The ABIs greater than 1 may reflect some element of noncompliance in this diabetic IMPRESSION: . Right JONATAN = 1.2. Right TBI 1.3 Left JONATAN = 1.4. Left TBI = 1.0 Diminished waveform left ankle Others normal. With normal pulses.
--- NOTE | 2018-03-12 07:52 | CI_ITS ---
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 IMPRESSIONS 1. Study suggests 20-49% stenosis involving the right internal carotid artery. Unable to visualize right vertebral secondary to patient's inability to turn head. 2. Study suggests 20-49% stenosis involving the left internal carotid artery. History: Memory loss. Coronary artery disease. Risk factors: Hypertension. Hyperlipidemia. Ex smoker DM Carotid duplex study. Complete study and Doppler flow study including spectral analysis, color and vega scale imaging. Height: Height: 175.3cm. Height: 69in. Weight: Weight: 94.3kg. Weight: 207.6lb. Body mass index: BMI: 30.7kg/m^2. Body surface area: BSA: 2.17m^2. Location: Vascular laboratory. Patient status: Outpatient. Tables: Arterial flow: + +--------+--------+ Location V sys V ed + +--------+--------+ Right CCA - proximal 94.3cm/s 18.1cm/s + +--------+--------+ Right CCA - distal 69.1cm/s 15.7cm/s + +--------+--------+ Right ECA 77.8cm/s -------- + +--------+--------+ Right ICA - proximal 70.7cm/s 18.1cm/s + +--------+--------+ Right ICA - mid 62.1cm/s 16.5cm/s + +--------+--------+ Right ICA - distal 83.3cm/s 26.7cm/s + +--------+--------+ Left CCA - proximal 99.8cm/s 15.7cm/s + +--------+--------+ Left CCA - distal 73.9cm/s 14.9cm/s + +--------+--------+ Left ECA 97cm/s -------- + +--------+--------+ Left ICA - proximal 93.5cm/s 23.6cm/s + +--------+--------+ Left ICA - mid 102cm/s 22cm/s + +--------+--------+ Left ICA - distal 90cm/s 23.6cm/s + +--------+--------+ Left vertebral 40.1cm/s -------- + +--------+--------+ Velocity ratios: + + + + + + Right, V sys Right, V ed Left, V sys Left, V ed + + + + + + Max ICA/dist CCA 1.21 1.7 1.38 1.58 + + + + + + (Report amended ) Electronically signed by: Ney Osorio [id number]
== END ==
PROVIDERS: PCP Internal Medicine Adolescent Medicine; Visit Provider Internal Medicine
DX: R42 Dizziness and giddiness (principal); I73.9 Peripheral vascular disease, unspecified
CPT/HCPCS: 93880; 93922

== ENCOUNTER → 2018-07-31 16:55 | Outpatient (CLI) | payer MEDICARE, SELFPAY ==
--- NOTE | 2018-07-31 | XR_ITS ---
XR chest 2V HISTORY: ITS.REASON: COUGH ORDERING PHYSICIAN: Kendy Campebll APRN PATIENT AGE: 82 years COMPARISON: 02/24/2019 FINDINGS: Prior CABG. Normal heart size.. The lungs are clear without infiltrates, suspicious nodules, or pleural effusions. Mild degenerative change thoracic spine. IMPRESSION: No change with no acute finding
[2018-07-31 17:33] LABS: Basophils % 0.5 % (0.1-2.0); Eosinophils # 0.3 K/mm3 (0.0-0.4); Eosinophils % 4.3 % (0.1-12.0); Hematocrit 38.2 % (42.0-52.0); Hemoglobin 13.3 g/dL (14.1-18.0); Lymphocytes # 1.9 K/mm3 (0.7-4.5); Lymphocytes % 32.5 % (10-50); Mean Corpuscular HGB Conc 34.8 g/dL (31.8-35.4); Mean Corpuscular Hemoglobin 30.2 pg (27.0-31.2); Mean Corpuscular Volume 86.9 fl (80-94); Mean Platelet Volume 8.4 fl (7.4-10.4); Monocytes # 0.3 K/mm3 (0.1-1.0); Monocytes % 5.1 % (1.7-9.3); Neutrophils # 3.4 K/mm3 (1.8-7.8); Neutrophils % 57.7 % (37.0-80.0); Platelet Count 209 K/mm3 (142-424); Red Cell Distribution Width 13.3 % (11.5-17.5); White Blood Count 5.9 K/mm3 (4.8-10.8)
[2018-07-31 17:51] VITALS: BP 117/62; PULSE 87; RESP 18; TEMP 36.7; O2SAT 95; BMI 29.8
[2018-07-31 17:56] LABS: Alanine Aminotransferase 22 U/L (12-78); Albumin Level 3.7 gm/dL (3.4-5.0); Albumin/Globulin Ratio 0.8 (1.1-1.8); Alkaline Phosphatase 77 U/L (46-116); Anion Gap 15.1 mEq/L (5-15); Aspartate Amino Transferase 14 U/L (15-37); Bilirubin,Total 0.5 mg/dL (0.2-1.0); Blood Urea Nitrogen 27 mg/dL (7-18); Calcium 8.9 mg/dL (8.5-10.1); Carbon Dioxide 25 mmol/L (21.0-32.0); Chloride 103 mmol/L (98-107); Creatinine Clearance Estimated 43 mL/min (50-200); Creatinine,Serum 1.76 mg/dL (0.70-1.30); Estimated Glomerular Filt Rate 37 ml/min (>60); GFR (African American) 45 ML/MIN (>60); Globulin 4.8 gm/dl (1.3-3.2); Glucose 251 mg/dL (74-106); Potassium 4.1 mmoL/L (3.5-5.1); Sodium 139 mmol/L (136-145); Total Protein,Serum 8.5 gm/dL (6.4-8.2)
--- NOTE | 2018-07-31 18:54 | PC.NURSE ---
PT DID NOT BRING IN HOME MEDICATIONS. HE STATED HE TOOK ONLY 5 AND DID NOT KNOW THE NAMES OF ANY OF THEM. I NOTIFIED GENNA KAPADIA AND SHE STATED TO TELL PT NOT TO TAKE LASIX AND TO FOLLOW UP WITH SOMEONE ON FRIDAY. IT WAS PUT IN WRITING NOT TO TAKE LASIX UNTIL HE FOLLOWS UP WITH SOMEONE ON FRIDAY. WAS ON THE FLOOR AND HE STATED HE WOULD BE IN [place] ON FRIDAY AND WILL BE GLAD TO SEE PT HE JUST NEEDED TO CALL FOR APPOINTMENT TIME.
[2018-07-31 21:02] VITALS: BP 140/65; PULSE 82; RESP 18; TEMP 36.2; O2SAT 97
[2018-07-31 21:05] VITALS: BP 107/45; PULSE 88; RESP 18; TEMP 36.2; O2SAT 97
--- NOTE | 2018-08-01 01:03 | PC.NURSE ---
IV infusion of 0.9% NS completed at 2101. Orthostatic VS obtained. Difference noted but systolic remained above 100. Pt tolerated infusion without any difficulty. Pt was DC and left home with @ 2109. Pt was also reminded to not take lasix and call friday to schedule appt.
== END ==
PROVIDERS: PCP Internal Medicine Adolescent Medicine; Visit Provider Nurse Practitioner Family
DX: E86.0 Dehydration (principal)
CPT/HCPCS: 36415; 71046; 80053; 85025

== ENCOUNTER 2018-08-14 08:40 | Emergency (ER) | payer MEDICARE, SELFPAY ==
[2018-08-14] VITALS (7 sets, daily range): BP systolic 155–179; BP diastolic 83–96; PULSE 76–97; RESP 18–20; TEMP 36.7; O2SAT 94–98; BMI 30.4
--- NOTE | 2018-08-14 08:41 | XR_ITS ---
XR chest portable HISTORY: ITS.REASON: chest pain ORDERING PHYSICIAN: Jabier Cisneros MD PATIENT AGE: 82 years COMPARISON: 07/31/2018 FINDINGS: Prior CABG. Borderline cardiomegaly without failure. Lungs are clear bilaterally. No acute bony anomalies. IMPRESSION: No change with no acute finding.
--- NOTE | 2018-08-14 08:42 | HMH.EDGENADL ---
ED Disposition Clinical Impression: Atypical chest pain Disposition: Home, Self-Care Condition on Discharge: Good Instructions: DI for Atypical Chest Pain Referrals: Torsten Triana MD [Primary Care Provider] - - Critical Care Critical Care Time: No Attestation: On , the high probability of a clinically significant, sudden or life threatening deterioration of the following system(s) required my full and direct attention, intervention and personal management. The time I documented below is in addition to time spent performing reported procedures but includes the following listed in this critical care notation. Medical Decision Making - Medical Records Medical records reviewed: Yes: I reviewed the patient's medical records. - Samir Inquiry Pt receiving controlled substance: No Vital Signs: 08/14/18 08:49 08/14/18 08:59 08/14/18 09:35 Temperature 98.0 F Temperature Source Oral Pulse Rate [Left Radial] 83 76 87 Respiratory Rate 20 18 Blood Pressure [Right Arm] 158/96 H 155/84 H 179/83 H Blood Pressure Mean [Right Arm] 116 107 115 Blood Pressure Source [Right Arm] Automatic Cuff Automatic Cuff Automatic Cuff Blood Pressure Position [Right Arm] Sitting Sitting Sitting 02 Sat by Pulse Oximetry 96 98 97 Oxygen Delivery Method Room Air Room Air Room Air 08/14/18 10:07 08/14/18 11:50 08/14/18 13:08 Temperature Temperature Source Pulse Rate [Left Radial] 97 H 89 96 H Respiratory Rate Blood Pressure [Right Arm] 172/85 H Blood Pressure Mean [Right Arm] 114 Blood Pressure Source [Right Arm] Automatic Cuff Blood Pressure Position [Right Arm] Sitting 02 Sat by Pulse Oximetry 94 L 96 96 Oxygen Delivery Method Room Air Room Air Room Air - Lab Data Lab results reviewed: Yes: I reviewed the patient's lab results. Lab Results 08/14/18 08:40: WBC 5.1, RBC 4.46 L, Hgb 13.8 L, Hct 40.0 L, MCV 89.6, MCH 30.8, MCHC 34.4, RDW 14.4, Plt Count 189, MPV 7.6, Neut % (Auto) 58.5, Lymph % (Auto) 28.2, Arthur % (Auto) 6.0, Eos % (Auto) 6.8, Baso % (Auto) 0.5, Neut # (Auto) 3.0, Lymph # (Auto) 1.4, Arthur # (Auto) 0.3, Eos # (Auto) 0.3, Baso # (Auto) 0.0 08/14/18 08:40: Sodium 140, Potassium 4.1, Chloride 105, Carbon Dioxide 23, Anion Gap 16.1 H, BUN 14, Creatinine 1.33 H, Estimated Creat Clear 58, Estimated GFR 52 L, Est GFR ( Amer) 62, Glucose 193 H, Calcium 8.5, Total Bilirubin 0.4, AST 20, ALT 26, Alkaline Phosphatase 80, Troponin I < 0.02, Total Protein 7.5, Albumin 3.3 L, Globulin 4.2 H, Albumin/Globulin Ratio 0.8 L, Lipase 241 08/14/18 13:08: Troponin I 0.02 Result diagrams: 08/14/18 08:40 08/14/18 08:40 Orders (Tests/Meds): ED MEDICATIONS Discontinued Medications Generic Name Dose Route Start Last Admin Trade Name Freq PRN Reason Stop Dose Admin Aspirin 324 mg 08/14/18 08:42 08/14/18 09:15 Aspirin 81mg Chewable Tablet PO 08/14/18 08:43 324 mg ONCE ONE Administration Lorazepam 1 mg 08/14/18 10:28 08/14/18 10:57 Ativan 2mg/Ml Vial IV 08/14/18 10:29 1 mg ONCE ONE Administration - Radiology Data #1 Image(s): Chest Image Reviewed: Yes I have reviewed radiologist's interpretation Preliminary Findings: Normal/NAD - ECG Data Tracing #1 I reviewed this ECG and interpreted as documented below: Normal Sinus Rhythm: Yes (no stemi) Medical Decision Narrative: pt seen at bedside by Dr Villanueva ([facility]) for treatment and disposition, home to continue present medical regimen, return if worse, see your doctor, serial troponins negative, pt continues to deny chest pain General Adult HPI - General Stated complaint: chest pain Time Seen by Provider: 08/14/18 08:43 Source of Information: Patient - History of Present Illness HPI narrative: mild to mod off and on anterior chest pain tight upon awakening today, rad to neck, gone now, no injury, hx cabg and dm and anxiety - Related Data Home Medications Medication Instructions Recorded Confir
--- NOTE | 2018-08-14 08:45 | ED_ITS ---
ED Disposition Clinical Impression: Atypical chest pain Disposition: Home, Self-Care Condition on Discharge: Good Instructions: DI for Atypical Chest Pain Referrals: Torsten Triana MD [Primary Care Provider] - - Critical Care Critical Care Time: No Attestation: On , the high probability of a clinically significant, sudden or life threatening deterioration of the following system(s) required my full and direct attention, intervention and personal management. The time I documented below is in addition to time spent performing reported procedures but includes the following listed in this critical care notation. Medical Decision Making - Medical Records Medical records reviewed: Yes: I reviewed the patient's medical records. - Samir Inquiry Pt receiving controlled substance: No Vital Signs: 08/14/18 08:49 08/14/18 08:59 08/14/18 09:35 Temperature 98.0 F Temperature Source Oral Pulse Rate [Left Radial] 83 76 87 Respiratory Rate 20 18 Blood Pressure [Right Arm] 158/96 H 155/84 H 179/83 H Blood Pressure Mean [Right Arm] 116 107 115 Blood Pressure Source [Right Arm] Automatic Cuff Automatic Cuff Automatic Cuff Blood Pressure Position [Right Arm] Sitting Sitting Sitting 02 Sat by Pulse Oximetry 96 98 97 Oxygen Delivery Method Room Air Room Air Room Air 08/14/18 10:07 08/14/18 11:50 08/14/18 13:08 Temperature Temperature Source Pulse Rate [Left Radial] 97 H 89 96 H Respiratory Rate Blood Pressure [Right Arm] 172/85 H Blood Pressure Mean [Right Arm] 114 Blood Pressure Source [Right Arm] Automatic Cuff Blood Pressure Position [Right Arm] Sitting 02 Sat by Pulse Oximetry 94 L 96 96 Oxygen Delivery Method Room Air Room Air Room Air - Lab Data Lab results reviewed: Yes: I reviewed the patient's lab results. Lab Results 08/14/18 08:40: WBC 5.1, RBC 4.46 L, Hgb 13.8 L, Hct 40.0 L, MCV 89.6, MCH 30.8, MCHC 34.4, RDW 14.4, Plt Count 189, MPV 7.6, Neut % (Auto) 58.5, Lymph % (Auto) 28.2, Laporte % (Auto) 6.0, Eos % (Auto) 6.8, Baso % (Auto) 0.5, Neut # (Auto) 3.0, Lymph # (Auto) 1.4, [place] # (Auto) 0.3, Eos # (Auto) 0.3, Baso # (Auto) 0.0 08/14/18 08:40: Sodium 140, Potassium 4.1, Chloride 105, Carbon Dioxide 23, Anion Gap 16.1 H, BUN 14, Creatinine 1.33 H, Estimated Creat Clear 58, Estimated GFR 52 L, Est GFR ( Amer) 62, Glucose 193 H, Calcium 8.5, Total Bilirubin 0.4, AST 20, ALT 26, Alkaline Phosphatase 80, Troponin I < 0.02, Total Protein 7.5, Albumin 3.3 L, Globulin 4.2 H, Albumin/Globulin Ratio 0.8 L, Lipase 241 08/14/18 13:08: Troponin I 0.02 Result diagrams: 08/14/18 08:40 08/14/18 08:40 Orders (Tests/Meds): ED MEDICATIONS Discontinued Medications Generic Name Dose Route Start Last Admin Trade Name Freq PRN Reason Stop Dose Admin Aspirin 324 mg 08/14/18 08:42 08/14/18 09:15 Aspirin 81mg Chewable Tablet PO 08/14/18 08:43 324 mg ONCE ONE Administration Lorazepam 1 mg 08/14/18 10:28 08/14/18 10:57 Ativan 2mg/Ml Vial IV 08/14/18 10:29 1 mg ONCE ONE Administration - Radiology Data #1 Image(s): Chest Image Reviewed: Yes I h
[2018-08-14 08:58] LABS: Basophils % 0.5 % (0.1-2.0); Eosinophils # 0.3 K/mm3 (0.0-0.4); Eosinophils % 6.8 % (0.1-12.0); Hemoglobin 13.8 g/dL (14.1-18.0); Lymphocytes # 1.4 K/mm3 (0.7-4.5); Lymphocytes % 28.2 % (10-50); Mean Corpuscular HGB Conc 34.4 g/dL (31.8-35.4); Mean Corpuscular Hemoglobin 30.8 pg (27.0-31.2); Mean Corpuscular Volume 89.6 fl (80-94); Mean Platelet Volume 7.6 fl (7.4-10.4); Monocytes # 0.3 K/mm3 (0.1-1.0); Neutrophils % 58.5 % (37.0-80.0); Platelet Count 189 K/mm3 (142-424); Red Blood Count 4.46 M/mm3 (4.60-6.20); Red Cell Distribution Width 14.4 % (11.5-17.5); White Blood Count 5.1 K/mm3 (4.8-10.8)
[2018-08-14 09:14] LABS: Alanine Aminotransferase 26 U/L (12-78); Albumin Level 3.3 gm/dL (3.4-5.0); Albumin/Globulin Ratio 0.8 (1.1-1.8); Alkaline Phosphatase 80 U/L (46-116); Anion Gap 16.1 mEq/L (5-15); Aspartate Amino Transferase 20 U/L (15-37); Bilirubin,Total 0.4 mg/dL (0.2-1.0); Blood Urea Nitrogen 14 mg/dL (7-18); Calcium 8.5 mg/dL (8.5-10.1); Carbon Dioxide 23 mmol/L (21.0-32.0); Chloride 105 mmol/L (98-107); Creatinine Clearance Estimated 58 mL/min (50-200); Creatinine,Serum 1.33 mg/dL (0.70-1.30); Estimated Glomerular Filt Rate 52 ml/min (>60); GFR (African American) 62 ML/MIN (>60); Globulin 4.2 gm/dl (1.3-3.2); Glucose 193 mg/dL (74-106); Lipase 241 u/L (73-393); Potassium 4.1 mmoL/L (3.5-5.1); Sodium 140 mmol/L (136-145); Total Protein,Serum 7.5 gm/dL (6.4-8.2); Troponin I < 0.02 ng/ml (0.00-0.06)
--- NOTE | 2018-08-14 09:33 | PC.NURSE ---
Pt up to restroom without any trouble at this time
--- NOTE | 2018-08-14 10:06 | PC.NURSE ---
Rad at bedside
--- NOTE | 2018-08-14 11:06 | PC.NURSE ---
speaking with Koby Reyes
--- NOTE | 2018-08-14 11:08 | PC.NURSE ---
Koby Reyes to come see pt
--- NOTE | 2018-08-14 11:25 | PC.NURSE ---
Koby Reyes at bedside
--- NOTE | 2018-08-14 11:47 | PC.NURSE ---
Pt requests to leave off bp cuff
--- NOTE | 2018-08-14 11:51 | HMH.CNCARD ---
History of Present Illness Consult date: 08/14/18 Consult reason: chest pain Chief complaint: chest pain Additional Medical History:: 1. CAD A. 5 vessel CABG, 2007 B. [facility], 02/2018, normal LVEF with patent bypasses 2. Dementia 3. HTN 4. Hyperlipidemia 5. IDDM History of present illness: 82-year-old white male with insulin-dependent diabetes, coronary artery disease with history of bypass surgery with recent cardiac catheterization 6 months ago showing patent bypasses presented to the ER for evaluation of chest pain. Symptoms woke him from sleep with description of anterior chest pain radiating to the neck and the shoulders. Symptoms resolved prior to arrival to the ER. Patient's states he looks much better now. She notes that he has some dementia and difficulty describing his symptoms. Initial EKG is sinus rhythm with no acute changes and initial troponin is normal. Blood pressure elevated with heart rate in the 80s and 90s. Cardiology consulted for evaluation recommendations Patient's states Kong has recently been discontinuing some of his medications due to patient complaint of fatigue. He is now currently only taking Lasix and aspirin from a cardiology standpoint. [facility] History Medical History: Reports:: Cancer, Diabetes Mellitus Type 2, Hyperlipidemia, Hypertension, Myocardial Infarction *Have you ever received a pneumonia vaccine?: No *Have you received a flu vaccine this season?: No Other Medical History: Reports: Anemia, Arthritis, Other Other Surgeries: Yes: CABG, Cardiac Catheterization, Cholecystectomy, Other Amputation: No Fractures: No - *Social History Smoking Status: Former smoker Tobacco Type: cigarettes Alcohol Intake: never Substance Use Type: denies use *Occupational Status:: retired Housing: house Household Members: spouse *Travel in the last 8 weeks: None - Psychiatric History Expresses thoughts of harming self/others: None Suicide Plan Description: No Plan Family Hx:: Coronary Artery Disease, Heart Attack Meds Home Medications Medication Instructions Recorded Confirmed Type Insulin Glargine,Hum.rec.anlog 30 unit SQ HS 02/25/18 04/01/18 History [Tojames Bowenar] Insulin Regular, Human [Novolin R] 30 units SQ TID 02/25/18 04/01/18 History Quetiapine Fumarate 50 mg PO HS 02/25/18 04/01/18 History Amlodipine Besylate [Norvasc 5mg 5 mg PO DAILY #30 tab 02/26/18 04/01/18 Rx tablet] Atorvastatin Calcium [Lipitor 40mg 40 mg PO HS #30 tab 02/26/18 04/01/18 Rx Tablet] Bisoprolol Fumarate [Zebeta 5mg 5 mg PO DAILY #30 tab 02/26/18 04/01/18 Rx tablet] Escitalopram Oxalate [Lexapro] 10 mg PO DAILY #30 tab 02/26/18 04/01/18 Rx alprazolam 0.5 mg tablet 0.5 mg PO BID PRN 04/01/18 04/01/18 History citalopram 20 mg tablet 20 mg PO DAILY 04/30/18 04/30/18 History multivitamin with iron-mineral 0.8 1 tab PO DAILY 04/30/18 04/30/18 History mg oral combo pack oxybutynin chloride ER 10 mg 10 mg PO DAILY 04/30/18 04/30/18 History tablet,extended release 24 hr Aspirin [Aspirin 81mg chewable 81 mg PO DAILY 08/14/18 08/14/18 History tab] Donepezil HCl [Aricept 5mg 5 mg PO DAILY 08/14/18 08/14/18 History Tablet] Furosemide [Furosemide 20mg Tab] 20 mg PO DAILY 08/14/18 08/14/18 History Allergies Allergy/AdvReac Type Severity Reaction Status Date / Time No Known Allergies Allergy Verified 04/01/18 10:38 Review of Systems - *Cardiovascular Reports chest pain, Reports shortness of breath with activity - *Respiratory Reports cough, Reports shortness of breath with activity - *Gastrointestinal Denies abdominal pain, Denies vomiting - *Musculoskeletal Reports joint pain, Reports back pain - *Neurologic Denies dizziness Exam Vital signs and Labs for Last 24 Hours: Temp Pulse Resp BP Pulse Ox 98.0 F 89 18 172/85 H 96 08/14/18 08:49 08/14/18 11:50 08/14/18 09:35 08/14/18 10:07 08/14/18 11:50 Laboratory Results - last 24 hr
--- NOTE | 2018-08-14 12:49 | PC.NURSE ---
Lab aware of orders and stated they would be down shortly.
--- NOTE | 2018-08-14 13:08 | PC.NURSE ---
lab at bedside
[2018-08-14 13:31] LABS: Troponin I 0.02 ng/ml (0.00-0.06)
== END 2018-08-14 13:57 | disposition home or self-care (01) ==
PROVIDERS: Emergency Provider Emergency Medicine Emergency Medical Services; PCP Internal Medicine Adolescent Medicine
DX: R07.89 Other chest pain (principal); E11.65 Type 2 diabetes mellitus with hyperglycemia; Z79.4 Long term (current) use of insulin; I10 Essential (primary) hypertension; E78.5 Hyperlipidemia, unspecified; F17.210 Nicotine dependence, cigarettes, uncomplicated
CPT/HCPCS: 36415; 71045; 80053; 83690; 84484; 85025; 93005; 96374; 99284

== ENCOUNTER → 2018-10-02 09:45 | Outpatient (CLI) | payer MEDICARE, SELFPAY ==
--- NOTE | 2018-10-02 09:50 | CI_ITS ---
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 IMPRESSIONS 1. The bilateral vertebral arteries are patent with normal antegrade flow. 2. Study suggests 20-49% stenosis involving the right internal carotid artery and the left internal carotid artery. No change from the study of 12-Mar-2018. Carotid duplex study. Complete study and Doppler flow study including spectral analysis, color and vega scale imaging. Height: Height: 175.3cm. Height: 69in. Weight: Weight: 94.8kg. Weight: 208.6lb. Body mass index: BMI: 30.9kg/m^2. Body surface area: BSA: 2.18m^2. Location: Vascular laboratory. Patient status: Outpatient. Tables: Arterial flow: + +--------+--------+ Location V sys V ed + +--------+--------+ Right CCA - proximal 103cm/s 17.3cm/s + +--------+--------+ Right CCA - distal 97.4cm/s 18.1cm/s + +--------+--------+ Right ECA 131cm/s -------- + +--------+--------+ Right ICA - proximal 65.3cm/s 15.2cm/s + +--------+--------+ Right ICA - mid 79.1cm/s 24.6cm/s + +--------+--------+ Right ICA - distal 104cm/s 26.4cm/s + +--------+--------+ Right vertebral 50.3cm/s -------- + +--------+--------+ Left CCA - proximal 119cm/s 17cm/s + +--------+--------+ Left CCA - distal 81.1cm/s 10.1cm/s + +--------+--------+ Left ECA 108cm/s -------- + +--------+--------+ Left ICA - proximal 62.2cm/s 20.1cm/s + +--------+--------+ Left ICA - mid 92.4cm/s 24.5cm/s + +--------+--------+ Left ICA - distal 76.7cm/s 20.7cm/s + +--------+--------+ Left vertebral 53.4cm/s -------- + +--------+--------+ Velocity ratios: + + + + + + Right, V sys Right, V ed Left, V sys Left, V ed + + + + + + Max ICA/dist CCA 1.07 1.46 1.14 2.43 + + + + + + (Report amended ) Electronically signed by: Edwin Mendez [id number]
== END ==
PROVIDERS: PCP Internal Medicine Adolescent Medicine; Visit Provider Internal Medicine
DX: E78.5 Hyperlipidemia, unspecified (principal); I65.23 Occlusion and stenosis of bilateral carotid arteries; I73.9 Peripheral vascular disease, unspecified; R60.9 Edema, unspecified; Z95.1 Presence of aortocoronary bypass graft
CPT/HCPCS: 93880

== ENCOUNTER → 2019-03-22 11:53 | Outpatient (CLI) | payer MEDICARE, SELFPAY ==
[2019-03-22 14:06] LABS: Hemoglobin A1C 8.1 % (0.0-7.0)
== END ==
PROVIDERS: Visit Provider Internal Medicine Adolescent Medicine
DX: E11.9 Type 2 diabetes mellitus without complications (principal); Z79.4 Long term (current) use of insulin
CPT/HCPCS: 83036

== ENCOUNTER → 2019-04-28 09:02 | Outpatient (CLI) | payer MEDICARE, SELFPAY ==
--- NOTE | 2019-04-28 09:03 | CA_ITS ---
APPROVED REPORT EXAM: Comprehensive 2D, Doppler, and color-flow Echocardiogram Chain Mender: Eva Herrera CRT Ht: 5 ft 9 in Wt: 204lbs BSA: 2.08 BP: 122/54 mmHg Indications: SOA, dizziness, CAD, CABG, PAD, HTN, edema, diabetes, hyperlipidemia 2D Dimensions LVOT 1.97 cm (M/F) 1.5-2.5 M-Mode Dimensions RVDd 2.54 cm (0.9-2.6) LVDd 4.51 cm (3.5-5.7) LVDs 3.61 cm (3.5-5.7) IVSd 1.32 cm (0.6-1.1) PWd 0.79 cm (0.6-1.1) EF (Teich) 41.00% FS 20.00% EDV (Teich) 92.90 mL ESV (Teich) 54.80 mL LV Diastology E/A Ratio 0.51 Aortic Valve LVOT Max 86.00 (70-110 cm/s) LVOT VTI 16.66 cm Mitral Valve MV A Velocity 136.00 (40-130 cm/s) Left Ventricle Left atrium is mildly enlarged, left ventricle is normal size, mild concentric left ventricular hypertrophy, visually estimated ejection fraction 50%, there is abnormal septal motion, there is no obvious regional wall motion abnormality. Grade 1 diastolic dysfunction seen with tissue Doppler evidence of raise left atrial pressure. Right Ventricle Right atrium and right ventricular mildly enlarged with normal contractility. Aortic Valve Aortic valve is thickened and calcified, aortic outflow Doppler is not indicated above aortic stenosis. There is no aortic insufficiency. Mitral Valve Mitral valve leaflets are minimally thickened, there is no mitral stenosis, there is mild mitral regurgitation. Tricuspid Valve Tricuspid valve is grossly normal, there is mild tricuspid regurgitation. Pulmonic Valve Pulmonic valve is poorly visualized. Great Vessels Aortic root is normal size. Pericardium No significant pericardial effusion noted. Conclusion 1. Technically very difficult study because of the patient fact in poor acoustic windows, endocardial surfaces are poorly visualized. 2. Mildly enlarged left atrium, normal left ventricular size, mild concentric left ventricular hypertrophy, visually estimated ejection fraction 50%, there is abnormal septal motion, there is no regional wall motion abnormality. Grade 1 diastolic dysfunction seen with tissue Doppler evidence of raise left atrial pressure. 3. Mildly enlarged right ventricle with normal contractility. 4. Mild mitral and tricuspid regurgitation. 5. Thickened and calcified aortic valve without Doppler evidence of aortic stenosis. 6. No significant pericardial effusion noted. Electronically signed by : Huber George, 04/29/2019 16:46:10
--- NOTE | 2019-04-28 09:03 | CA_ITS ---
APPROVED REPORT Medical Staff Physician: Ashley Johns RVT Laterality: Bilateral Study Quality: Good Indications: Dizziness and Vertigo, Carotid stenosis Risk Factors Hypertension: Hyperlipidemia Diabetes Doppler Spectral Velocity Analysis ECA (R) 105.90/6.40 cm/s ECA (L) 72.40/5.30 cm/s dICA (R) 103.20/25.70 cm/s dICA (L) 88.80/19.20 cm/s Samira (R) 82.90/23.50 cm/s Samira (L) 77.20/19.20 cm/s pICA (R) 63.70/12.00 cm/s pICA (L) 76.00/19.40 cm/s dCCA (R) 62.40/12.80 cm/s dCCA (L) 68.40/12.30 cm/s pCCA (R) 101.80/9.70 cm/s pCCA (L) 86.10/11.80 cm/s Vert (R) 35.30/8.60 cm/s Vert (L) 27.80/8.50 cm/s ICA/CCA 1.65 ICA/CCA 1.30 Findings Study suggests 20-49% stenosis of the right internal cartoid artery unchanged from the 10/02/18 study. Study suggests 20-49% stenosis of the left internal cartoid artery unchanged from the 10/02/18 study. Antegrade flow seen bilateral vertebral arteries. Conclusion Study suggests 20-49% stenosis of the right internal cartoid artery unchanged from the 10/02/18 study. Study suggests 20-49% stenosis of the left internal cartoid artery unchanged from the 10/02/18 study. Antegrade flow seen bilateral vertebral arteries. Electronically signed by : Edwin Mendez MD 04/28/2019 18:22:50
== END ==
PROVIDERS: PCP Internal Medicine Adolescent Medicine; Visit Provider Urology
DX: I65.23 Occlusion and stenosis of bilateral carotid arteries (principal); E11.9 Type 2 diabetes mellitus without complications; E78.2 Mixed hyperlipidemia; I10 Essential (primary) hypertension; I25.118 Atherosclerotic heart disease of native coronary artery with other forms of angina pectoris; I73.9 Peripheral vascular disease, unspecified; R06.00 Dyspnea, unspecified; R06.01 Orthopnea; R06.02 Shortness of breath; R42 Dizziness and giddiness; R60.0 Localized edema; Z95.1 Presence of aortocoronary bypass graft; Z79.4 Long term (current) use of insulin
CPT/HCPCS: 93306; 93880

== ENCOUNTER 2019-08-21 13:50 | Emergency (ER) | payer MEDICARE, SELFPAY ==
--- NOTE | 2019-08-21 13:59 | ECG_ITS ---
APPROVED REPORT Exam: Resting ECG HR:56 bpm ECG Measurements Heart Rate 56 AXES MN 182 P 88 QRSd 94 QRS -2 QT 448 T 94 QTc 432 <Conclusion> Sinus bradycardia with marked sinus arrhythmia Nonspecific ST and T wave abnormality Abnormal ECG Electronically signed by : Amado Guerra, 08/23/2019 08:57:46
[2019-08-21 14:01] VITALS: BP 149/66; PULSE 59; RESP 16; TEMP 36.1; O2SAT 98; BMI 30.7
--- NOTE | 2019-08-21 14:07 | XR_ITS ---
PROCEDURE: XR CHEST PORTABLE Patient Age:83Y CLINICAL HISTORY: syncope COMPARISON: CXR CHEST(2 VIEWS-NOT PORTABLE) from 11/24/2014 CXR1 CHEST-PORTABLE from 07/30/2016 CXR2V XR chest 2V from 02/24/2018 XR CHEST 2V from 03/09/2019 FINDINGS: AP portable chest. Slightly lordotic projection but comparable projection versus previous CXR study February 2019. Right lung. Clear. There may be some mild atelectasis at the medial right base and towards right infrahilar region but nothing definitely acute on right Left chest but there is a linear area of density towards left base projected over the anterior 6th rib end. Most likely this reflects some atelectasis and scarring does not appear to be a mass or nodule but it is noted and I would encourage a follow-up PA and lateral chest within the next 6-8 weeks on to further exclude any significant developing density. The heart appears normal-upper size for an AP portable chest.. Prior sternotomy likely reflecting CABG. Normal upper normal point vascularity. No pleural effusion, no pneumothorax. Chest wall unremarkable. IMPRESSION: No prominent findings Stable chest except to note a small linear area of density towards left lung base, which I favor reflects atelectasis or minimal scarring. However would suggest a follow-up PA and lateral chest within the next 6-8 weeks to further exclude any other developing density or process here. Median sternotomy. Heart upper normal in size. Pulmonary vascularity is more generous than previous study but no overt CHF. Dictated by: Ney Osorio MD 08/21/2019 17:31 Electronically signed by Ney Osorio MD in [place] 08/21/2019 17:31
[2019-08-21 14:08] VITALS: BP 145/79; PULSE 57; O2SAT 97
--- NOTE | 2019-08-21 14:10 | HMH.EDGENADL ---
ED Disposition Clinical Impression: Orthostatic hypotension, Dehydration Disposition: Home, Self-Care Condition on Discharge: Good Instructions: DI for Orthostatic Hypotension Additional Instructions: Take furosemide (Lasix) only every other day until follow-up with your primary care provider we can discuss further details of medication management. Stay well hydrated with plenty of water. Referrals: Torsten Triana MD [Primary Care Provider] - 3 days - Critical Care Critical Care Time: No Attestation: On 08/21/19, the high probability of a clinically significant, sudden or life threatening deterioration of the following system(s) required my full and direct attention, intervention and personal management. The time I documented below is in addition to time spent performing reported procedures but includes the following listed in this critical care notation. Medical Decision Making - Medical Records Medical records reviewed: Yes: I reviewed the patient's medical records. - Samir Inquiry Pt receiving controlled substance: No Vital Signs: 08/21/19 14:01 08/21/19 14:08 08/21/19 14:16 Temperature 97 F L Temperature Source Oral Pulse Rate [Left Radial] 59 L 57 L Pulse Rate [Orthostatic Lying] 59 L Pulse Rate [Orthostatic Standing] 76 Respiratory Rate 16 Blood Pressure [Orthostatic Lying] 148/75 H Blood Pressure [Orthostatic Standing] 107/54 L Blood Pressure [Right Radial Artery] 149/66 H 145/79 H Blood Pressure Mean [Right Radial Artery] 93 101 Blood Pressure Source [Right Radial Artery] Automatic Cuff Blood Pressure Position [Right Radial Artery] Sitting Sitting 02 Sat by Pulse Oximetry 98 97 Oxygen Delivery Method Room Air Room Air - Lab Data Lab Results 08/21/19 14:00: WBC 5.1, RBC 4.17 L, Hgb 13.4 L, Hct 37.8 L, MCV 90.7, MCH 32.1 H, MCHC 35.3, RDW 14.2, Plt Count 193, MPV 8.5, Neut % (Auto) 56.2, Lymph % (Auto) 30.5, [place] % (Auto) 5.3, Eos % (Auto) 7.4, Baso % (Auto) 0.6, Neut # (Auto) 2.9, Lymph # (Auto) 1.6, [place] # (Auto) 0.3, Eos # (Auto) 0.4, Baso # (Auto) 0.0 08/21/19 14:00: Sodium 142, Potassium 4.1, Chloride 106, Carbon Dioxide 24, Anion Gap 16.1 H, BUN 32 H, Creatinine 1.50 H, Estimated Creat Clear 51, Estimated GFR 45 L, Est GFR ( Amer) 54 L, Glucose 101 H, Calcium 9.4, Total Bilirubin 0.6, AST 29, ALT 18, Alkaline Phosphatase 65, Troponin I < 0.01, Total Protein 8.3 H, Albumin 4.5, Globulin 3.8 H, Albumin/Globulin Ratio 1.2 08/21/19 14:20: Urine Color Yellow, Urine Appearance Clear, Urine pH 5.5, Ur Specific [place] 1.020, Urine Protein Negative, Urine Glucose (UA) Negative, Urine Ketones Negative, Urine Blood Negative, Urine Nitrate Negative, Urine Bilirubin Negative, Urine Urobilinogen 0.2, Ur Leukocyte Esterase Negative, Urine RBC 3-5, Urine WBC Occasional, Ur Squamous Epith Cells Occasional, Urine Bacteria None 08/21/19 14:27: POC Glucose 78 Result diagrams: 08/21/19 14:00 08/21/19 14:00 Orders (Tests/Meds): ED MEDICATIONS Generic Name Dose Route Start Last Admin Trade Name Freq PRN Reason Stop Dose Admin Sodium Chloride 500 mls @ 999 mls/hr 08/21/19 14:30 08/21/19 14:34 Sod Chlor 0.9% 1000ml Bag IV 08/21/19 15:00 999 mls/hr .Q31M SARAH Administration ORDERS Category Date Time Status Chest XR -- portable [XR chest portable] Stat Exams 08/21/19 14:07 Ordered Troponin I Q3H Lab 08/21/19 17:15 Ordered Troponin I Q3H Lab 08/21/19 20:15 Ordered - Radiology Data #1 Image(s): Chest Image Reviewed: Yes I reviewed the patient's radiology image Preliminary Findings: Normal/NAD - ECG Data Tracing #1 I reviewed this ECG and interpreted as documented below: EKG at 1359 shows a sinus rhythm with a rate of 56. No acute ST segment elevation or depression. No hyperacute T waves. Normal intervals. EKG interpreted by me. Medical Decision Narrative: Patient is orthostatic which is consistent with his description of feeling weak
[2019-08-21 14:15] LABS: Basophils % 0.6 % (0.1-2.0); Eosinophils # 0.4 K/mm3 (0.0-0.4); Eosinophils % 7.4 % (0.1-12.0); Hematocrit 37.8 % (42.0-52.0); Hemoglobin 13.4 g/dL (14.1-18.0); Lymphocytes # 1.6 K/mm3 (0.7-4.5); Lymphocytes % 30.5 % (10-50); Mean Corpuscular HGB Conc 35.3 g/dL (31.8-35.4); Mean Corpuscular Hemoglobin 32.1 pg (27.0-31.2); Mean Corpuscular Volume 90.7 fl (80-94); Mean Platelet Volume 8.5 fl (7.4-10.4); Monocytes # 0.3 K/mm3 (0.1-1.0); Monocytes % 5.3 % (1.7-9.3); Neutrophils # 2.9 K/mm3 (1.8-7.8); Neutrophils % 56.2 % (37.0-80.0); Platelet Count 193 K/mm3 (142-424); Red Blood Count 4.17 M/mm3 (4.60-6.20); Red Cell Distribution Width 14.2 % (11.5-17.5); White Blood Count 5.1 K/mm3 (4.8-10.8)
[2019-08-21 14:16] VITALS: BP 107/54; BP 148/75; PULSE 59; PULSE 76
[2019-08-21 14:27] LABS: Alanine Aminotransferase 18 U/L (12-78); Albumin Level 4.5 g/dl (3.5-5.0); Albumin/Globulin Ratio 1.2 (1.1-1.8); Alkaline Phosphatase 65 U/L (38-126); Anion Gap 16.1 mEq/L (5-15); Aspartate Amino Transferase 29 U/L (17-59); Bilirubin,Total 0.6 mg/dl (0.2-1.3); Blood Urea Nitrogen 32 mg/dl (9-20); Calcium 9.4 mg/dl (8.4-10.2); Carbon Dioxide 24 mmol/L (22.0-30.0); Chloride 106 mmol/L (98-107); Creatinine Clearance Estimated 51 mL/min (50-200); Estimated Glomerular Filt Rate 45 ml/min (>60); GFR (African American) 54 ML/MIN (>60); Globulin 3.8 g/dL (1.3-3.2); Glucose 101 mg/dl (74-100); Potassium 4.1 mmoL/L (3.5-5.1); Sodium 142 mmol/L (136-145); Total Protein,Serum 8.3 g/dl (6.3-8.2)
[2019-08-21 14:28] LABS: Microscopic, Urine URINE MICROSCOPIC (MICROSCOPIC)
--- NOTE | 2019-08-21 14:29 | PC.NURSE ---
FSBS 79
[2019-08-21 14:34] LABS: Appearance,Urine CLEAR (Clear); Bilirubin,Urine Negative (Negative); Blood, Urine Negative (Negative); Color,Urine YELLOW (Yellow); Glucose,Urine (UA) Negative (Negative); Ketones,Urine Negative (Negative); Leukocyte Esterase,Urine Negative (Negative); Nitrate,Urine Negative (Negative); PH,Urine 5.5 (5.0-8.5); Protein,Urine Negative (Negative); Urobilinogen,Urine 0.2 EU/dl (0.2)
[2019-08-21 14:35] LABS: POC Glucose,Bedside 78 (70-110)
[2019-08-21 14:40] LABS: Squamous Epithelial Cell,Urine Occasional #/hpf (0-5); WBC,Urine Occasional #/hpf (0-3)
[2019-08-21 14:42] LABS: Troponin I < 0.01 ng/ml (0.00-0.034)
--- NOTE | 2019-08-21 14:50 | PC.NURSE ---
Pt sitting up eating lunch tray at this time.
[2019-08-21 15:53] VITALS: BP 138/59; PULSE 69; O2SAT 95
[2019-08-21 16:16] VITALS: BP 153/74; PULSE 59; RESP 16; TEMP 36.6; O2SAT 98
== END 2019-08-21 16:18 | disposition home or self-care (01) ==
PROVIDERS: Emergency Provider Emergency Medicine; PCP Internal Medicine Adolescent Medicine
DX: I95.1 Orthostatic hypotension (principal); E78.5 Hyperlipidemia, unspecified; I25.10 Atherosclerotic heart disease of native coronary artery without angina pectoris; E11.9 Type 2 diabetes mellitus without complications; I25.2 Old myocardial infarction; Z95.1 Presence of aortocoronary bypass graft; Z87.891 Personal history of nicotine dependence; Z79.899 Other long term (current) drug therapy
CPT/HCPCS: 71045; 80053; 81001; 82962; 84484; 85025; 93005; 96365; 99284

== ENCOUNTER 2019-12-21 16:19 | Observation (INO) | payer MEDICARE, SELFPAY ==
[2019-12-21 16:40] VITALS: BP 136/62; PULSE 60; RESP 17; TEMP 36.4; O2SAT 97; BMI 29.4
[2019-12-21 18:28] LABS: Basophils % 0.6 % (0.1-2.0); Eosinophils # 0.2 K/mm3 (0.0-0.4); Eosinophils % 2.9 % (0.1-12.0); Hematocrit 40.9 % (42.0-52.0); Hemoglobin 13.5 g/dL (14.1-18.0); Lymphocytes # 1.2 K/mm3 (0.7-4.5); Lymphocytes % 20.7 % (10-50); Mean Corpuscular HGB Conc 32.9 g/dL (31.8-35.4); Mean Corpuscular Hemoglobin 30.1 pg (27.0-31.2); Mean Corpuscular Volume 91.4 fl (80-94); Mean Platelet Volume 8.1 fl (7.4-10.4); Monocytes # 0.3 K/mm3 (0.1-1.0); Monocytes % 4.5 % (1.7-9.3); Neutrophils # 4.2 K/mm3 (1.8-7.8); Neutrophils % 71.3 % (37.0-80.0); Platelet Count 206 K/mm3 (142-424); Red Blood Count 4.47 M/mm3 (4.60-6.20); Red Cell Distribution Width 13.2 % (11.5-17.5); White Blood Count 5.9 K/mm3 (4.8-10.8)
[2019-12-21 18:35] LABS: Alanine Aminotransferase 18 U/L (12-78); Albumin Level 4.2 g/dl (3.5-5.0); Albumin/Globulin Ratio 1.1 (1.1-1.8); Alkaline Phosphatase 78 U/L (38-126); Anion Gap 12.7 mEq/L (5-15); Aspartate Amino Transferase 27 U/L (17-59); Bilirubin,Total 0.4 mg/dl (0.2-1.3); Blood Urea Nitrogen 25 mg/dl (9-20); Calcium 9.4 mg/dl (8.4-10.2); Carbon Dioxide 30 mmol/L (22.0-30.0); Chloride 102 mmol/L (98-107); Creatinine Clearance Estimated 48 mL/min (50-200); Estimated Glomerular Filt Rate 45 ml/min (>60); GFR (African American) 54 ML/MIN (>60); Globulin 3.8 g/dL (1.3-3.2); Glucose 194 mg/dl (74-100); Magnesium 2.3 mg/dl (1.6-2.3); Potassium 4.7 mmoL/L (3.5-5.1); Sodium 140 mmol/L (136-145)
[2019-12-21 18:57] LABS: Coronavirus 19 IgG Antibody Negative (Negative); Coronavirus 19 IgM Antibody Negative (Negative)
[2019-12-21 19:07] LABS: Thyroid Stimulating Hormone 0.64 uIU/mL (0.465-4.68)
--- NOTE | 2019-12-21 19:44 | PC.NURSE ---
PATIENT ARRIVED ON FLOOR VIA WHEELCHAIR. PATIENT HAD SEVERAL ATTEMPTS AT AN IV. IV INSERTED AT 1815. THIS RN EDUCATED PATIENT AND FAMILY WHY PATIENT WAS ON PRECAUTIONS DUE TO WAITING FOR COVID-19 TEST RESULTS. THIS RN EDUCATED PATIENT FOR THE NEED OF A STOOL SAMPLE. PATIENT AND FAMILY VERBALIZED AN UNDERSTANDING. DURING ASSESSMENT, THIS RN HAD DIFFICULTY AUSCULTATING PATIENT'S HEART SOUNDS. THIS RN HEARD HEART SOUNDS THAT WERE DISTANT AND WITH A SWOOSH. THIS RN INQUIRED WHETHER PATIENT HAD A MURMUR, PATIENT AND FAMILY DENIED. THIS RN HAD DYLON LIN RN AUSCULTATE WELL. DUANE BARLOW ALSO STATED THAT SHE WAS UNABLE TO HEAR HEART SOUNDS OVER LUNG SOUNDS. NO OTHER CONCERNS AT THIS TIME.
[2019-12-21 20:00] VITALS: BP 113/61; PULSE 66; RESP 18; TEMP 36.6; O2SAT 97
[2019-12-21 20:26] LABS: Hemoglobin A1C 7.7 % (4.0-6.0)
[2019-12-21 21:07] LABS: POC Glucose,Bedside 257 (70-110)
[2019-12-22 01:34] LABS: Adenovirus F 40/41, stool Not Detected (NotDetected); Astrovirus Not Detected (NotDetected); Campylobacter Not Detected (NotDetected); Clostridium Difficile A/B, PCR Not Detected (NotDetected); Cryptosporidium Not Detected (NotDetected); Cyclospora Cayetanesis Not Detected (NotDetected); Entamoeba histolytica Not Detected (NotDetected); Enteroaggregative E coli Not Detected (NotDetected); Enteropathogenic E coli Not Detected (NotDetected); Enterotoxigenic E coli Not Detected (NotDetected); Giardia lamblia Not Detected (NotDetected); Norovirus Not Detected (NotDetected); Plesimonas Shigalloides, PCR Not Detected (NotDetected); Rotavirus A Not Detected (NotDetected); Salmonella, PCR Not Detected (NotDetected); Sapovirus Not Detected (NotDetected); Shiga-like toxin E coli Not Detected (NotDetected); Shigella Enterovasive E coli Not Detected (NotDetected); Vibrio Cholerae Not Detected (NotDetected); Vibrio, PCR Not Detected (NotDetected); Yersinia Entercolitica, PCR Not Detected (NotDetected)
[2019-12-22 04:00] VITALS: BP 126/70; PULSE 73; RESP 18; TEMP 36.5; O2SAT 96
--- NOTE | 2019-12-22 04:21 | PC.NURSE ---
shift summary, no acute changes since prior assessment, pt has rested well t/o shift, pt has ambulated once to bathroom with standby assistance, pt educated on the importance of calling out when needing to get out of bed, pt has had one BM this shift, loose and brown in color, specimen sent to lab, pt has used urinal with 620 mL out so far, urine clear and yellow, pt has had no complaints of N/V/D this shift, no complaints of SOA or chest pain, has remained afebrile t/o shift, on auscultating heart sounds, pt heart is hard to hear, S1 and S2 is hard to auscultate over breath sounds, radial pulse is strong with a rate of 66-73, lungs clear to auscultation
[2019-12-22 05:00] VITALS: BMI 29.8
[2019-12-22 05:36] LABS: POC Glucose,Bedside 175 (70-110)
--- NOTE | 2019-12-22 06:38 | ECG_ITS ---
APPROVED REPORT Exam: Resting ECG HR:60 bpm ECG Measurements Heart Rate 60 AXES MA 186 P 75 QRSd 100 QRS -9 QT 454 T 73 QTc 454 Conclusion Normal sinus rhythm with sinus arrhythmia Nonspecific T wave abnormality Abnormal ECG Electronically signed by : Torsten Triana, 12/24/2019 13:54:34
[2019-12-22 07:22] LABS: Basophils % 0.6 % (0.1-2.0); Eosinophils # 0.3 K/mm3 (0.0-0.4); Eosinophils % 6.1 % (0.1-12.0); Lymphocytes # 1.9 K/mm3 (0.7-4.5); Lymphocytes % 39.1 % (10-50); Mean Corpuscular HGB Conc 32.6 g/dL (31.8-35.4); Mean Corpuscular Hemoglobin 29.8 pg (27.0-31.2); Mean Corpuscular Volume 91.4 fl (80-94); Monocytes # 0.4 K/mm3 (0.1-1.0); Monocytes % 7.5 % (1.7-9.3); Neutrophils # 2.2 K/mm3 (1.8-7.8); Neutrophils % 46.7 % (37.0-80.0); Platelet Count 171 K/mm3 (142-424); Red Blood Count 4.05 M/mm3 (4.60-6.20); Red Cell Distribution Width 13.1 % (11.5-17.5); White Blood Count 4.8 K/mm3 (4.8-10.8)
[2019-12-22 07:25] LABS: Chloride 106 mmol/L (98-107); Potassium 4.4 mmoL/L (3.5-5.1); Sodium 142 mmol/L (136-145)
[2019-12-22 07:28] LABS: Anion Gap 11.4 mEq/L (5-15); Blood Urea Nitrogen 22 mg/dl (9-20); Calcium 8.8 mg/dl (8.4-10.2); Carbon Dioxide 29 mmol/L (22.0-30.0); Creatinine Clearance Estimated 56 mL/min (50-200); Estimated Glomerular Filt Rate 53 ml/min (>60); GFR (African American) 64 ML/MIN (>60); Glucose 177 mg/dl (74-100)
--- NOTE | 2019-12-22 07:29 | HMH.PHAVTE ---
[facility] Pharmacy VTE Monitoring - Patient Demographics Admission date: 12/21/19 Report Date: 12/22/19 Time: 07:29 Allergies/Adverse Reactions: Patient Allergies No Known Allergies Allergy (Verified 12/20/19 11:20) Height: 1.75 m Weight: 91.342 kg - VTE Risk Labs: VTE Related Lab Results Hgb 13.5 g/dL (14.1-18.0) L 12/21/19 18:13 Hct 37.0 % (42.0-52.0) L 12/22/19 06:40 Plt Count 171 K/mm3 (142-424) 12/22/19 06:40 BUN 22 mg/dl (9-20) H 12/22/19 06:40 Creatinine 1.30 mg/dl (0.66-1.25) H 12/22/19 06:40 Estimated Creat Clear 56 mL/min (50-200) 12/22/19 06:40 VTE Score: 7 VTE Risk Level: Moderate Risk - Prophylaxis VTE Prophylaxis Ordered?: Yes Types of VTE Prophylaxis: TEDS Knee High Location of Applied Device: Bilateral Lower Extremeties
[2019-12-22 08:00] VITALS: BP 131/73; PULSE 60; RESP 18; TEMP 36.5; O2SAT 95
[2019-12-22 08:14] LABS: Hemoglobin 12.1 g/dL (14.1-18.0)
--- NOTE | 2019-12-22 09:46 | HMH.SLDYSPHA ---
Speech & Language Evaluation Speech/Language Dysphagia Evaluation Start: 12/22/19 09:41 Freq: ONCE Status: Active Protocol: Document 12/22/19 09:41 MANSOOR (Rec: 12/22/19 09:46 MANSOOR [id number]) Dysphagia Assess/Goals/Plan Assessment Date of Evaluation: 12/22/19 Evaluation Type Initial Certification Assessment/Problems Dysphagia Does Patient Qualify for Service No Qualify/Failure Comment No signs of dysphagia noted during the evaluation. Recommendations PHYSICIAN CERTIFICATION: The specified therapy services are required, authorized, and reviewed every 30 days. Diet Recommendations Normal Liquid Type Recommendations Normal/Thin Plan Pt/Guardian verbally ack understanding Yes: Care Management notified of dx/prognosis/goals G -code Required No Speech & Language HPI Language Primary Language Scottish General Information General Current Food Consistancy Regular,Thin Liquids Dentition Good Dentition Oxygen Status Room Air Facial Symmetry Symmetrical Patient Orientation Person,Place,Time,Situation Ability to Follow Directions Excellent Communication Ability No Impairment Dysphagia:Food Presentation Evaluation Food Type Mechanical Soft,Regular,Liquid Dysphagia Evaluation Summary Mr. Shoemaker was given the following consistencies: thins via straw and open cup, mechanical soft, and regular. No signs of dysphagia noted during the evaluation. Mr. Shoemaker was given strategies to aid in swallowing ( alternate between a bite and a sip and take small bites and small sips during mealtimes). Should problems continue, it is recommended that Mr. Shoemaker have a modified barium swallow. Stroke Dysphagia Assessment PHYSICIAN CERTIFICATION: I certify the specified therapy services for Antoine Shoemaker are required, authorized, and reviewed every 30 days.
--- NOTE | 2019-12-22 10:26 | HMH.PTEV ---
Physical Therapy Evaluation Rehab PT IP Evaluation Start: 12/21/19 17:31 Freq: ONCE Status: Active Protocol: Document 12/22/19 09:18 BRIEN (Rec: 12/22/19 10:25 PWHERNAN [id number]) Subjective/History History History This is the initial physical therapy evaluation for Antoine Shoemaker, an 84 y/o male with complaints of chest pain, dizziness/ lightheadedness, and a history of falls. The dizziness/ lightheadedness might be vision related. Pt. reported that he had 3-4 falls in the last 6 months. Note by Alexandr Nassar, SPT Subjective Subjective Pt. also stated he has tightness in his legs and they give out when he falls. Rehab PT IP Eval Objective Appearance Patient Behavior Appropriate,Cooperative Patient Orientation Person,Place,Time,Birthday, Year Difficulty following instructions none Speech Pattern Clear,Appropriate,Coherent Ambulation Patient Able to Ambulate Yes Ambulation Observation IP General Gait Pattern Observation No Deviations/Normal Ambulation Distance (feet) 10 Ambulation Assistive Device None Ambulation Ability Contact Guard/Hand Hold Balance Ability to Arise Able, uses arms to help Sitting Balance Steady, safe Standing Balance Unsteady Dynamic Sitting Balance Ability Good Dynamic Standing Balance Ability Fair Transfers Bed Transfer Ability Independent Chair Transfer Ability Independent Sit to Stand Bed Transfer Ability Contact Guard/Hand Hold Sit to Stand Chair Transfer Ability Contact Guard/Hand Hold ROM All Extremities PT ROM Status WFL Rehab PT IP prob,goals,plan Problems Date of Evaluation: 12/22/19 PT IP Problems Gait,Balance,Self care,Safety Rehab Potential Rehab Potential Good Equipment Needs Assistive Devices Straight Cane Plan PT Intervention Plan Gait,Balance,Self care,Safety, Therapeutic Exercise PT Plan Frequency BID Duration LOS Discharge Goals Bed Transfer Ability Independent Sit to Stand Chair Transfer Ability Supervision/Stand by Ambulation Assistive Device Straight Cane Ambulation Distance (feet) 20 Discharge Plan PT Discharge Plan Pt. would benefit from home
--- NOTE | 2019-12-22 11:04 | HMH.HPDC ---
General - General Admission date:: 12/21/19 Discharge date: 12/22/19 *Admission Date: 12/21/19 *Chief complaint: Weakness and falls *History of present illness: 84-year-old white male with long history of diabetes, type II but insulin requiring with minimal neuropathy symptoms. History of chest pain with negative heart catheterization earlier this spring. History of medication noncompliance and worsening memory loss who came to the office with his and daughter because of increasing falls over the past couple of days with 2 falls at his home. No bony trauma was noted but patient was noted to be dehydrated and has had a couple episodes of diarrhea at home. No fever, no vomiting, no blood in the stool or the emesis. Admitted to observation for IV fluids, laboratory testing and further diagnostic/physical therapy evaluation as indicated. [facility] History I have reviewed the patient's past medical history: Yes Medical History: Reports:: Coronary Artery Disease, Diabetes Mellitus Type 2, Hyperlipidemia, Hypertension, Myocardial Infarction Denies:: Cancer, Diabetes Mellitus Type 1, Internal Pacemaker, MRSA, Seizures *Have you ever received a pneumonia vaccine?: No *Have you received a flu vaccine this season?: Yes Other Medical History: Reports: Anemia, Arthritis, Other Other Surgeries: Yes: No Previous Surgery, CABG, Cardiac Catheterization, Cholecystectomy, Other. No: Pacemaker Amputation: No Fractures: No - *Social History Last grade of school completed: High school graduate Smoking Status: Never smoker Tobacco Type: cigarettes Alcohol Intake: never Substance Use Type: denies use *Occupational Status:: retired Housing: house Household Members: spouse *Travel in the last 8 weeks: None Family Hx:: Heart Attack Review of Systems - Review of Systems Review of systems:: pertinent systems reviewed and negative unless documented below Exam Vital signs and Labs for Last 24 Hours: Temp Pulse Resp BP Pulse Ox 97.7 F 60 18 131/73 95 12/22/19 08:00 12/22/19 08:00 12/22/19 08:00 12/22/19 08:00 12/22/19 08:00 Laboratory Results - last 24 hr 12/21/19 18:13: SARS-CoV-2 IgG Ab (Rapid) Negative, SARS-CoV-2 IgM Ab (Rapid) Negative 12/21/19 18:13: WBC 5.9, RBC 4.47 L, Hgb 13.5 L, Hct 40.9 L, MCV 91.4, MCH 30.1, MCHC 32.9, RDW 13.2, Plt Count 206, MPV 8.1, Neut % (Auto) 71.3, Lymph % (Auto) 20.7, [place] % (Auto) 4.5, Eos % (Auto) 2.9, Baso % (Auto) 0.6, Neut # (Auto) 4.2, Lymph # (Auto) 1.2, [place] # (Auto) 0.3, Eos # (Auto) 0.2, Baso # (Auto) 0.0 12/21/19 18:13: Sodium 140, Potassium 4.7, Chloride 102, Carbon Dioxide 30, Anion Gap 12.7, BUN 25 H, Creatinine 1.50 H, Estimated Creat Clear 48, Estimated GFR 45 L, Est GFR ( Amer) 54 L, Glucose 194 H, Calcium 9.4, Magnesium 2.3, Total Bilirubin 0.4, AST 27, ALT 18, Alkaline Phosphatase 78, Total Protein 8.0, Albumin 4.2, Globulin 3.8 H, Albumin/Globulin Ratio 1.1, TSH 0.64 12/21/19 18:13: Hemoglobin A1c 7.7 H 12/21/19 20:41: POC Glucose 257 H 12/22/19 05:28: POC Glucose 175 H 12/22/19 06:40: WBC 4.8, RBC 4.05 L, Hgb 12.1 L D, Hct 37.0 L, MCV 91.4, MCH 29.8, MCHC 32.6, RDW 13.1, Plt Count 171, MPV 8.0, Neut % (Auto) 46.7, Lymph % (Auto) 39.1, [place] % (Auto) 7.5, Eos % (Auto) 6.1, Baso % (Auto) 0.6, Neut # (Auto) 2.2, Lymph # (Auto) 1.9, [place] # (Auto) 0.4, Eos # (Auto) 0.3, Baso # (Auto) 0.0 12/22/19 06:40: Sodium 142, Potassium 4.4, Chloride 106, Carbon Dioxide 29, Anion Gap 11.4, BUN 22 H, Creatinine 1.30 H, Estimated Creat Clear 56, Estimated GFR 53 L, Est GFR ( Amer) 64, Glucose 177 H, Calcium 8.8 I & O for Last 24 hours: Intake & Output 12/19/19 12/20/19 12/21/19 12/22/19 11:59 11:59 11:59 11:59 Intake Total 1011 / 1011 Output Total 840 / 840 Balance 171 / 171 Weight 201 lb 6 oz - *Routine HEENT Exam Head: Present: normocephalic Eye: Present: EOMI, PERRL ENT: Present: mucous membranes dry - *Routine Neck Exam Present: supple. Absent: lympha
--- NOTE | 2019-12-22 11:27 | SW/DCPLANNER ---
RECEIVED REFERRAL FOR HOME HEALTH SERVICES FOR THIS PATIENT.... I WENT IN TO SPEAK WITH PATIENT AND HIS AND THEY CHOSE [facility]... I HAVE SENT REFERRAL AND ORDER FOR SOMEONE TO MAKE CONTACT TODAY FOR SERVICES TO START IN THE AM ().....
--- NOTE | 2019-12-22 11:41 | HMH.OTEV ---
OT Inpatient Evaluation Rehab OT IP Evaluation Start: 12/21/19 17:31 Freq: ONCE Status: Complete Protocol: Document 12/22/19 11:34 YOLI (Rec: 12/22/19 11:39 [id number] Rehab OT IP Assessment Subjective History Pt oriented x 2 on arrival. Pt's present during therapy evaluation. Pt was admitted via office visit on 12/21/19 due to increasing falls at home and diarrhea. Pt has a past medical history of CAD, DM type 2, HTN, Hyperlipidemia, and [place]. Pt reports he lives at home with his . Pt claims he is independent with ADL's but is dependent upon for completion of IADL's. Pt does use a walker/cane at times during ambulation. Subjective I think I'm better. Objective Patient Orientation Person,Place,Birthday Upper Extremity Gross ROM WFL Bed Mobility bed mobility-scooting,bed mobility - supine/sit,bed mobility - rolling Assist Level Contact Guard/Hand Hold Transfer Training Sit/Stand Transfer Assist Level Contact Guard/Hand Hold Performing Toilet Hygiene Ability Independent Overall Commode/Toilet Transfer Ability Standby Assistance Commode/Toilet Transfer Technique Sit to/from Ambulatory Rehab OT IP prob,goals,plan Problems Date of Evaluation: 12/22/19 OT IP Problems Bed Mobility,Transfers,Gait, Balance,Self care,Safety Rehab Potential Rehab Potential Good Equipment Needs Assistive Devices Rolling / Wheeled Walker Plan OT intervention Plan Bed Mobility,Transfers,Gait, Balance,Self care,Safety, Therapeutic Exercise OT Plan Frequency Daily Duration LOS Discharge Goals Bed Mobility Ability Standby Assistance Sit to Stand Chair Transfer Ability Supervision/Stand by Chair Transfer Ability Supervision/Stand by Chair Transfer Technique Sit to/from Ambulatory Chair Transfer Assistive Devices Rolling Walker Feeding Ability Independent Lower Body Dressing Ability Standby Assistance Upper Body Dressing Ability Standby Assistance Bathing Ability Standby Assistance Performing Toilet Hygiene Ability Standby Assistance Overall C
[2019-12-22 11:55] LABS: POC Glucose,Bedside 340 (70-110)
--- NOTE | 2019-12-22 12:30 | PC.NURSE ---
A&OX4. PT HAS TOLERATED ROOM AIR WELL THROUGHOUT SHIFT. RESPIRATIONS REGULAR AND UNLABORED. LUNG SOUND BILATERALLY CLEAR. NONPITTING EDEMA NOTED IN BLE. HAND PARACHUTE RIGGER EQUAL. ACTIVE BOWEL SOUNDS HEARD IN ALL 4 QUADRANTS. SOFT AND NONTENDER ABDOMEN. PT VOIDS PER URINAL. CLEAR YELLOW URINE NOTED. NO BM THUS FAR. PT IS BEING DISCHARGED. IV REMOVED W CATHETER INTACT. KOBAN AND 4X4S APPLIED. PT AND VERBALIZED UNDERSTANDING OF DISCHARGE INSTRUCTIONS. PHARMACY EDUCATED PT ON MEDICATIONS. PT IS IN BED RESTING. CALL LIGHT WITHIN REACH. BED IN LOWEST POSITION. VSS. WILL CONTINUE TO MONITOR.
[2019-12-23 20:16] LABS: C difficile Toxins AB, EIA Negative (Negative)
== END 2019-12-22 12:57 | disposition home health service (06) ==
PROVIDERS: Admitting Provider Internal Medicine Adolescent Medicine; PCP Internal Medicine Adolescent Medicine; Visit Provider Internal Medicine Adolescent Medicine
DX: E11.65 Type 2 diabetes mellitus with hyperglycemia; I25.10 Atherosclerotic heart disease of native coronary artery without angina pectoris; I25.2 Old myocardial infarction; Z95.1 Presence of aortocoronary bypass graft; Z79.4 Long term (current) use of insulin; Z79.899 Other long term (current) drug therapy; R19.7 Diarrhea, unspecified; Z91.81 History of falling
CPT/HCPCS: G0379; 36415; 80048; 80053; 82962; 83036; 83735; 84443; 85025; 86328; 87324; 87506; 92610; 93005; 97161; 97165; G0378

== ENCOUNTER → 2020-06-29 14:01 | Outpatient (CLI) | payer MEDICARE, SELFPAY ==
--- NOTE | 2020-06-29 14:04 | CA_ITS ---
APPROVED REPORT EXAM: Comprehensive 2D, Doppler, and color-flow Echocardiogram [place] Supervisor: Tayler Bhardwaj, RT(R) Ht: 5 ft 9 in Wt: 195lbs BSA: 2.04 BP: 138/78 mmHg Indications: SOA, HTN, DM, CAD, CABG, hyperlipidemia 2D Dimensions LVOT 2.06 cm (M/F) 1.5-2.5 M-Mode Dimensions RVDd 2.32 cm (0.9-2.6) LA Diam 3.30 cm (1.9-4.0) LVDd 5.11 cm (3.5-5.7) Ao Diam 2.87 cm (2.0-3.7) LVDs 3.68 cm (3.5-5.7) IVSd 0.96 cm (0.6-1.1) PWd 0.79 cm (0.6-1.1) EF (Teich) 53.90% FS 28.00% EDV (Teich) 124.40 mL ESV (Teich) 57.40 mL LV Diastology E Decel Time 330.00 (160-240 msec) E/A Ratio 0.6 MED E' 3.90 (< 7 cm/sec) E'/MED E' Ratio 23.21 (>14) LAT E' 5.40 (<10 cm/sec) E/LAT E' Ratio 16.76 (>14) Aortic Valve LVOT Max 104.00 (70-110 cm/s) LVOT VTI 19.43 cm AoV Peak Maximilian. 206.00 (50-130 cm/s) AO Peak GR. 17.20 mmHg AO Mean GR. 8.40 (<5 mmHg) AO VTI 34.75 (18-25 cm) BRIDGER (VTI) 1.86 (2.5-4.5 cm2) Mitral Valve MV E Max Maximilian. 90.00 (40-130 cm/s) MV A Velocity 149.00 (40-130 cm/s) E/A Ratio 0.61 MV Decel. Time 330.00 (160-240 ms) MV PHT 97.00 ms Left Ventricle Left atrium is mildly enlarged, left ventricle is normal size, mild concentric left ventricular hypertrophy, visually estimated ejection fraction 55% with no regional wall motion abnormality, grade 1 diastolic dysfunction seen with tissue Doppler evidence of raise left atrial pressure. Right Ventricle Right atrium and right ventricle are relatively normal size and function. Aortic Valve Aortic valve is thickened and calcified with restriction to leaflet mobility, the valve area is calculated 1.5 cm??? represents mild aortic stenosis, there is mild aortic insufficiency. Mitral Valve Mitral inflow velocity is mildly increased, there is no significant mitral inflow obstruction, there is mild mitral regurgitation. There is mitral annular calcification present which extends in both anterior and posterior mitral leaflet. Tricuspid Valve Tricuspid valve is grossly normal, there is mild tricuspid regurgitation, tricuspid regurgitation jet velocity is inadequate for calculation of the right ventricular systolic pressure. Pulmonic Valve Pulmonic valve is poorly visualized. Great Vessels Aortic root is normal size. Pericardium No significant pericardial effusion noted. Conclusion 1. Mildly enlarged left atrium, normal left ventricular size, mild concentric left ventricular hypertrophy, visually estimated ejection fraction 55% with no regional wall motion abnormality, grade 1 diastolic dysfunction seen with tissue Doppler evidence of raise left atrial pressure. 2. Thickened and calcified aortic valve with likely mild aortic stenosis, valve area is 1.5 cm???, there is mild aortic insufficiency. 3. Mild mitral and tricuspid regurgitation. 4. No significant pericardial effusion noted. Electronically signed by : Huber George, 06/29/2020 15:34:33
--- NOTE | 2020-06-29 14:04 | CA_ITS ---
APPROVED REPORT Wire Welder: JOHNATHON Laterality: Bilateral Study Quality: Excellent Indications: carotid artery stenosis Risk Factors CAD, dizziness Doppler Spectral Velocity Analysis ECA (R) 95.80/10.50 cm/s ECA (L) 86.00/7.10 cm/s dICA (R) 90.50/26.90 cm/s dICA (L) 81.40/21.40 cm/s Samira (R) 69.60/19.50 cm/s Samira (L) 100.20/21.40 cm/s pICA (R) 82.30/15.00 cm/s pICA (L) 72.80/12.90 cm/s dCCA (R) 82.30/15.00 cm/s dCCA (L) 62.30/13.50 cm/s pCCA (R) 79.00/12.70 cm/s pCCA (L) 104.80/12.00 cm/s Vert (R) 46.90/0.00 cm/s Vert (L) 67.70/14.60 cm/s ICA/CCA 1.15 ICA/CCA 0.96 Findings Duplex evaluation demonstrates stenosis of the right proximal internal carotid artery in the range of 20-49% with PSV <140 cm/sec, EDV <100 cm/sec, and IC/CC Ratio <4.0. Duplex evaluation demonstrates stenosis of the left proximal internal carotid artery in the range of 20-49% with PSV <140 cm/sec, EDV <100 cm/sec, and IC/CC Ratio <4.0. Duplex evaluation demonstrates antegrade flow of the bilateral Vertebral Arteries. Conclusion Duplex evaluation demonstrates stenosis of the right proximal internal carotid artery in the range of 20-49% with PSV <140 cm/sec, EDV <100 cm/sec, and IC/CC Ratio <4.0. Duplex evaluation demonstrates stenosis of the left proximal internal carotid artery in the range of 20-49% with PSV <140 cm/sec, EDV <100 cm/sec, and IC/CC Ratio <4.0. Duplex evaluation demonstrates antegrade flow of the bilateral Vertebral Arteries. Electronically signed by : Ewdin Mendez MD 06/29/2020 15:18:53
== END ==
PROVIDERS: PCP Internal Medicine Adolescent Medicine; Visit Provider Nurse Practitioner Family
DX: E78.2 Mixed hyperlipidemia (principal); I10 Essential (primary) hypertension; I25.118 Atherosclerotic heart disease of native coronary artery with other forms of angina pectoris; R42 Dizziness and giddiness; Z95.1 Presence of aortocoronary bypass graft
CPT/HCPCS: 93306; 93880

== ENCOUNTER → 2020-07-05 09:48 | Outpatient (CLI) | payer MEDICARE, SELFPAY ==
[2020-07-05 13:50] LABS: Basophils # 0.1 K/mm3 (0-0.2); Basophils % 1.1 % (0.1-2.0); Eosinophils # 0.2 K/mm3 (0.0-0.4); Eosinophils % 4.9 % (0.1-12.0); Hematocrit 39.4 % (42.0-52.0); Hemoglobin 13.1 g/dL (14.1-18.0); Lymphocytes # 1.1 K/mm3 (0.7-4.5); Lymphocytes % 22.3 % (10-50); Mean Corpuscular HGB Conc 33.3 g/dL (31.8-35.4); Mean Corpuscular Hemoglobin 30.4 pg (27.0-31.2); Mean Platelet Volume 8.6 fl (7.4-10.4); Monocytes # 0.3 K/mm3 (0.1-1.0); Monocytes % 5.3 % (1.7-9.3); Neutrophils # 3.2 K/mm3 (1.8-7.8); Neutrophils % 66.4 % (37.0-80.0); Platelet Count 173 K/mm3 (142-424); Red Blood Count 4.32 M/mm3 (4.60-6.20); Red Cell Distribution Width 13.4 % (11.5-17.5); White Blood Count 4.8 K/mm3 (4.8-10.8)
[2020-07-05 13:58] LABS: Alanine Aminotransferase 15 U/L (12-78); Albumin Level 4.2 g/dl (3.5-5.0); Albumin/Globulin Ratio 1.2 (1.1-1.8); Alkaline Phosphatase 66 U/L (38-126); Anion Gap 13.8 mEq/L (5-15); Aspartate Amino Transferase 24 U/L (17-59); Bilirubin,Total 0.3 mg/dl (0.2-1.3); Blood Urea Nitrogen 32 mg/dl (9-20); Calcium 9.1 mg/dl (8.4-10.2); Carbon Dioxide 24 mmol/L (22.0-30.0); Chloride 110 mmol/L (98-107); Estimated Glomerular Filt Rate 48 ml/min (>60); GFR (African American) 59 ML/MIN (>60); Globulin 3.4 g/dL (1.3-3.2); Glucose 75 mg/dl (74-100); Potassium 4.8 mmoL/L (3.5-5.1); Sodium 143 mmol/L (136-145); Total Protein,Serum 7.6 g/dl (6.3-8.2)
[2020-07-05 14:27] LABS: Thyroid Stimulating Hormone 2.36 uIU/mL (0.465-4.68)
== END ==
PROVIDERS: Visit Provider Internal Medicine Adolescent Medicine
DX: E11.9 Type 2 diabetes mellitus without complications (principal); G60.9 Hereditary and idiopathic neuropathy, unspecified; Z79.4 Long term (current) use of insulin
CPT/HCPCS: 36415; 80053; 83036; 83735; 84443; 85025

== ENCOUNTER → 2020-08-15 20:51 | Outpatient (CLI) | payer MEDICARE, SELFPAY ==
[2020-08-15 21:14] LABS: Chloride 106 mmol/L (98-107); Potassium 5.2 mmoL/L (3.5-5.1); Sodium 142 mmol/L (136-145)
[2020-08-15 21:17] LABS: Anion Gap 17.2 mEq/L (5-15); Blood Urea Nitrogen 35 mg/dl (9-20); Calcium 8.7 mg/dl (8.4-10.2); Carbon Dioxide 24 mmol/L (22.0-30.0); Estimated Glomerular Filt Rate 39 ml/min (>60); GFR (African American) 47 ML/MIN (>60); Glucose 200 mg/dl (74-100)
[2020-08-16 13:30] LABS: Hemoglobin A1C 8.1 % (4.0-6.0)
== END ==
PROVIDERS: Visit Provider Internal Medicine Adolescent Medicine
DX: E11.9 Type 2 diabetes mellitus without complications (principal); Z79.4 Long term (current) use of insulin
CPT/HCPCS: 80048; 83036

== ENCOUNTER → 2020-09-08 20:05 | Outpatient (CLI) | payer MEDICARE, SELFPAY ==
[2020-09-08 20:40] LABS: Basophils % 0.7 % (0.1-2.0); Eosinophils # 0.3 K/mm3 (0.0-0.4); Eosinophils % 4.8 % (0.1-12.0); Hemoglobin 12.7 g/dL (14.1-18.0); Lymphocytes # 1.2 K/mm3 (0.7-4.5); Lymphocytes % 17.9 % (10-50); Mean Corpuscular HGB Conc 33.5 g/dL (31.8-35.4); Mean Corpuscular Hemoglobin 30.7 pg (27.0-31.2); Mean Corpuscular Volume 91.9 fl (80-94); Mean Platelet Volume 9.9 fl (7.4-10.4); Monocytes # 0.3 K/mm3 (0.1-1.0); Monocytes % 5.2 % (1.7-9.3); Neutrophils # 4.6 K/mm3 (1.8-7.8); Neutrophils % 71.5 % (37.0-80.0); Platelet Count 190 K/mm3 (142-424); Red Blood Count 4.13 M/mm3 (4.60-6.20); Red Cell Distribution Width 13.6 % (11.5-17.5); White Blood Count 6.4 K/mm3 (4.8-10.8)
[2020-09-08 20:48] LABS: Alanine Aminotransferase 17 U/L (12-78); Albumin Level 4.1 g/dl (3.5-5.0); Albumin/Globulin Ratio 1.3 (1.1-1.8); Alkaline Phosphatase 51 U/L (38-126); Anion Gap 16.7 mEq/L (5-15); Aspartate Amino Transferase 26 U/L (17-59); Bilirubin,Total 0.5 mg/dl (0.2-1.3); Blood Urea Nitrogen 28 mg/dl (9-20); Calcium 8.4 mg/dl (8.4-10.2); Carbon Dioxide 24 mmol/L (22.0-30.0); Chloride 104 mmol/L (98-107); Estimated Glomerular Filt Rate 45 ml/min (>60); GFR (African American) 54 ML/MIN (>60); Globulin 3.2 g/dL (1.3-3.2); Glucose 222 mg/dl (74-100); Potassium 4.7 mmoL/L (3.5-5.1); Sodium 140 mmol/L (136-145); Total Protein,Serum 7.3 g/dl (6.3-8.2)
[2020-09-08 21:28] LABS: 25-OH Vitamin D, Total 22.3 ng/mL (30-100)
[2020-09-08 21:35] LABS: Vitamin B12 253 pg/mL (239-931)
== END ==
PROVIDERS: Visit Provider Nurse Practitioner Family
DX: R53.83 Other fatigue (principal); E55.9 Vitamin D deficiency, unspecified
CPT/HCPCS: 80053; 82306; 82607; 85025

== ENCOUNTER → 2020-09-12 10:19 | Outpatient (POV) | payer MEDICARE, SELFPAY | PROVIDERS: Visit Provider Dermatology | DX: Z00.00 Encounter for general adult medical examination without abnormal findings (principal) ==

== ENCOUNTER 2020-10-12 14:18 | Emergency (ER) | payer MEDICARE, SELFPAY ==
[2020-10-12 14:19] VITALS: BP 127/71; PULSE 77; RESP 16; TEMP 36.8; O2SAT 97; BMI 29.5
--- NOTE | 2020-10-12 14:27 | CT_ITS ---
PROCEDURE: CT HEAD/BRAIN WO CON CLINICAL INDICATION: confusion Confusion Altered mental status, altered level of consciousness, confusion, disorientation COMPARISON: CT HDWO CT HEAD W/O CONTRAST from 11/24/[address] HEAD/BRAIN WO CON from 03/09/2019 TECHNIQUE: Axial images obtained. All CT scans at the facility use one or more dose reduction, viz: automated exposure control, ma/kV adjustment per patient size (including targeted exams where dose is matched to indication, i.e. head), or iterative reconstruction technique. FINDINGS: No midline shift, mass effect, intracranial hemorrhage, hydrocephalus, or extra-axial fluid collection is evident. There is diffuse atrophy with low-density changes in the periventricular region consistent with ischemic gliotic change from microvascular disease. Hyperdensity involves the proximal aspect of the left middle cerebral artery. 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 Hyperdensity could also be related to overlying partially calcified plaque. No mastoid effusion or sinus air-fluid level. IMPRESSION: 1. No acute intracranial findings. 2. Atrophy with chronic ischemic gliotic change. 3. Hyperdensity at the proximal aspect of the left middle cerebral artery/left ICA bifurcation which could be related to chronic thrombus or partial plaque calcification. This is unchanged compared to an older study of 11/24/2014. Dictated by: Edwin Mendez MD 10/12/2020 15:44 Edwin Mendez MD in [place] 10/12/2020 15:44
--- NOTE | 2020-10-12 14:27 | HMH.EDGENADL ---
ED Disposition Clinical Impression: Diabetic neuropathy Qualifiers: Diabetes mellitus type: type 2 Diabetes mellitus complication detail: diabetic polyneuropathy Qualified Code(s): E11.42 - Type 2 diabetes mellitus with diabetic polyneuropathy Disposition: Home, Self-Care Condition on Discharge: Good Referrals: Torsten Triana MD [Primary Care Provider] - 3 days Time of Disposition: 16:29 - Critical Care Critical Care Time: No Attestation: On , the high probability of a clinically significant, sudden or life threatening deterioration of the following system(s) required my full and direct attention, intervention and personal management. The time I documented below is in addition to time spent performing reported procedures but includes the following listed in this critical care notation. Medical Decision Making - Medical Records Medical records reviewed: Yes: I reviewed the patient's medical records. - Samir Inquiry Pt receiving controlled substance: No Vital Signs: 10/12/20 14:19 10/12/20 15:00 10/12/20 15:31 Temperature 98.2 F Temperature Source Oral Pulse Rate 71 Pulse Rate [Right] 77 Respiratory Rate 16 15 Blood Pressure 121/56 L 124/60 Blood Pressure [Right Arm] 127/71 Blood Pressure Mean 76 Blood Pressure Mean [Right Arm] 89 Blood Pressure Source [Right Arm] Automatic Cuff Blood Pressure Position [Right Arm] Sitting 02 Sat by Pulse Oximetry 97 98 Oxygen Delivery Method Room Air - Lab Data Lab results reviewed: Yes: I reviewed the patient's lab results. Lab Results 10/12/20 14:31: POC Glucose 148 H 10/12/20 15:00: Urine Color Yellow, Urine Appearance Clear, Urine pH 5.0, Ur Specific [place] 1.020, Urine Protein Negative, Urine Glucose (UA) Negative, Urine Ketones Negative, Urine Blood Negative, Urine Nitrate Negative, Urine Bilirubin Negative, Urine Urobilinogen 0.2, Ur Leukocyte Esterase Negative, Urine RBC None, Urine WBC Occasional, Ur Squamous Epith Cells Occasional, Urine Bacteria None 10/12/20 15:10: WBC 5.7, RBC 4.23 L, Hgb 12.7 L, Hct 36.8 L, MCV 87.0, MCH 30.1, MCHC 34.6, RDW 13.4, Plt Count 168, MPV 8.6, Neut % (Auto) 67.5, Lymph % (Auto) 22.4, [place] % (Auto) 4.2, Eos % (Auto) 5.2, Baso % (Auto) 0.6, Neut # (Auto) 3.8, Lymph # (Auto) 1.3, [place] # (Auto) 0.2, Eos # (Auto) 0.3, Baso # (Auto) 0.0 10/12/20 15:10: Sodium 141, Potassium 4.6, Chloride 109 H, Carbon Dioxide 23, Anion Gap 13.6, BUN 26 H, Creatinine 1.50 H, Estimated Creat Clear 48, Estimated GFR 45 L, Est GFR ( Amer) 54 L, Glucose 139 H, Calcium 8.8, Total Bilirubin 0.4, AST 36, ALT 16, Alkaline Phosphatase 66, Total Protein 7.5, Albumin 4.0, Globulin 3.5 H, Albumin/Globulin Ratio 1.1 10/12/20 15:10: Ammonia < 9 L 10/12/20 15:10: NT-Pro-B Natriuret Pep 545 H Result diagrams: 10/12/20 15:10 10/12/20 15:10 - CT Data CT Scan: Head Time Received: 16:[address] Reviewed: Yes: I have viewed the radiologist's interpretation Preliminary Findings: Normal/NAD - ECG Data Tracing #1 I reviewed this ECG and interpreted as documented below: Sinus rhythm, nonspecific T wave abnormality 67 bpm, no ST elevation or depression, normal intervals. ECG initial impression date: 10/12/20 ECG initial impression time: 14:55 Medical Decision Narrative: 84yo M evaluated for complaint of paresthesia to all digits, upper and lower, as well as 1 pill get stuck in his throat. Patient no acute distress on initial evaluation. Broad work-up is initiated. EKG is unremarkable as reviewed above. Patient is sent for CT of his head which is benign. Patient also undergoes routine laboratory studies which are benign. Patient is noted to have very mild increase in his BNP without previous study for comparison. He is not short of breath and exhibits no dyspnea. All findings discussed with patient and family at bedside. He is appropriate and stable for discharge home with PCP follow-up. General Adult HPI - General Stated complaint
--- NOTE | 2020-10-12 14:51 | ECG_ITS ---
APPROVED REPORT Exam: Resting ECG HR:67 bpm ECG Measurements Heart Rate 67 AXES NE 202 P 46 QRSd 96 QRS -2 QT 420 T 59 QTc 443 Conclusion Sinus rhythm with marked sinus arrhythmia Nonspecific T wave abnormality Abnormal ECG Electronically signed by : Torsten Triana, 10/15/2020 21:10:23
[2020-10-12 15:00] VITALS: BP 121/56
[2020-10-12 15:07] LABS: Microscopic, Urine URINE MICROSCOPIC (MICROSCOPIC)
[2020-10-12 15:09] LABS: Appearance,Urine CLEAR (Clear); Bilirubin,Urine Negative (Negative); Blood, Urine Negative (Negative); Color,Urine YELLOW (Yellow); Glucose,Urine (UA) Negative (Negative); Ketones,Urine Negative (Negative); Leukocyte Esterase,Urine Negative (Negative); Nitrate,Urine Negative (Negative); Protein,Urine Negative (Negative); Urobilinogen,Urine 0.2 EU/dl (0.2)
--- NOTE | 2020-10-12 15:12 | PC.NURSE ---
patient to CT
[2020-10-12 15:28] LABS: Squamous Epithelial Cell,Urine Occasional #/hpf (0-5); WBC,Urine Occasional #/hpf (0-3)
[2020-10-12 15:30] LABS: Basophils % 0.6 % (0.1-2.0); Eosinophils # 0.3 K/mm3 (0.0-0.4); Eosinophils % 5.2 % (0.1-12.0); Hematocrit 36.8 % (42.0-52.0); Hemoglobin 12.7 g/dL (14.1-18.0); Lymphocytes # 1.3 K/mm3 (0.7-4.5); Lymphocytes % 22.4 % (10-50); Mean Corpuscular HGB Conc 34.6 g/dL (31.8-35.4); Mean Corpuscular Hemoglobin 30.1 pg (27.0-31.2); Mean Platelet Volume 8.6 fl (7.4-10.4); Monocytes # 0.2 K/mm3 (0.1-1.0); Monocytes % 4.2 % (1.7-9.3); Neutrophils # 3.8 K/mm3 (1.8-7.8); Neutrophils % 67.5 % (37.0-80.0); Platelet Count 168 K/mm3 (142-424); Red Blood Count 4.23 M/mm3 (4.60-6.20); Red Cell Distribution Width 13.4 % (11.5-17.5); White Blood Count 5.7 K/mm3 (4.8-10.8)
[2020-10-12 15:31] VITALS: BP 124/60; PULSE 71; RESP 15; O2SAT 98
[2020-10-12 15:31] LABS: Chloride 109 mmol/L (98-107); Sodium 141 mmol/L (136-145)
[2020-10-12 15:32] LABS: Potassium 4.6 mmoL/L (3.5-5.1)
[2020-10-12 15:34] LABS: Alanine Aminotransferase 16 U/L (12-78); Albumin/Globulin Ratio 1.1 (1.1-1.8); Alkaline Phosphatase 66 U/L (38-126); Ammonia < 9 umol/L (9-30); Anion Gap 13.6 mEq/L (5-15); Aspartate Amino Transferase 36 U/L (17-59); Bilirubin,Total 0.4 mg/dl (0.2-1.3); Blood Urea Nitrogen 26 mg/dl (9-20); Carbon Dioxide 23 mmol/L (22.0-30.0); Creatinine Clearance Estimated 48 mL/min (50-200); Estimated Glomerular Filt Rate 45 ml/min (>60); GFR (African American) 54 ML/MIN (>60); Globulin 3.5 g/dL (1.3-3.2); Total Protein,Serum 7.5 g/dl (6.3-8.2)
[2020-10-12 15:35] LABS: Calcium 8.8 mg/dl (8.4-10.2); Glucose 139 mg/dl (74-100)
[2020-10-12 15:41] LABS: POC Glucose,Bedside 148 (70-110)
[2020-10-12 15:44] LABS: NT Pro Brain Natriuretic Pep. 545 pg/mL (0-450)
[2020-10-12 16:00] VITALS: BP 125/62; PULSE 74; RESP 20; O2SAT 94
[2020-10-12 16:31] VITALS: BP 139/71; PULSE 63; RESP 18; O2SAT 96
[2020-10-12 16:43] VITALS: BP 139/71; PULSE 62; RESP 18; TEMP 36.6; O2SAT 98
== END 2020-10-12 16:45 | disposition home or self-care (01) ==
PROVIDERS: Emergency Provider Family Medicine; PCP Internal Medicine Adolescent Medicine
DX: E11.42 Type 2 diabetes mellitus with diabetic polyneuropathy (principal); I25.10 Atherosclerotic heart disease of native coronary artery without angina pectoris; I10 Essential (primary) hypertension; E78.5 Hyperlipidemia, unspecified; I25.2 Old myocardial infarction; Z79.899 Other long term (current) drug therapy
CPT/HCPCS: 70450; 80053; 81001; 82140; 82962; 83880; 85025; 93005; 99283

== ENCOUNTER → 2020-11-01 10:43 | Outpatient (CLI) | payer MEDICARE, SELFPAY ==
[2020-11-01 14:06] LABS: Chloride 107 mmol/L (98-107); Sodium 140 mmol/L (136-145)
[2020-11-01 14:07] LABS: Potassium 4.5 mmoL/L (3.5-5.1)
[2020-11-01 14:09] LABS: Alanine Aminotransferase 16 U/L (12-78); Albumin Level 4.1 g/dl (3.5-5.0); Albumin/Globulin Ratio 1.3 (1.1-1.8); Alkaline Phosphatase 60 U/L (38-126); Anion Gap 14.5 mEq/L (5-15); Aspartate Amino Transferase 22 U/L (17-59); Bilirubin,Total 0.4 mg/dl (0.2-1.3); Blood Urea Nitrogen 32 mg/dl (9-20); Carbon Dioxide 23 mmol/L (22.0-30.0); Estimated Glomerular Filt Rate 48 ml/min (>60); GFR (African American) 58 ML/MIN (>60); Globulin 3.2 g/dL (1.3-3.2); Total Protein,Serum 7.3 g/dl (6.3-8.2)
[2020-11-01 14:10] LABS: Calcium 8.7 mg/dl (8.4-10.2); Glucose 213 mg/dl (74-100)
[2020-11-01 14:51] LABS: Basophils % 0.8 % (0.1-2.0); Eosinophils # 0.4 K/mm3 (0.0-0.4); Eosinophils % 7.5 % (0.1-12.0); Hematocrit 37.8 % (42.0-52.0); Hemoglobin 12.9 g/dL (14.1-18.0); Lymphocytes # 1.9 K/mm3 (0.7-4.5); Mean Corpuscular HGB Conc 34.1 g/dL (31.8-35.4); Mean Corpuscular Hemoglobin 29.5 pg (27.0-31.2); Mean Corpuscular Volume 86.3 fl (80-94); Mean Platelet Volume 9.6 fl (7.4-10.4); Monocytes # 0.3 K/mm3 (0.1-1.0); Monocytes % 5.7 % (1.7-9.3); Neutrophils # 3.1 K/mm3 (1.8-7.8); Platelet Count 184 K/mm3 (142-424); Red Blood Count 4.38 M/mm3 (4.60-6.20); Red Cell Distribution Width 13.5 % (11.5-17.5); White Blood Count 5.8 K/mm3 (4.8-10.8)
== END ==
PROVIDERS: Visit Provider Internal Medicine Adolescent Medicine
DX: E11.9 Type 2 diabetes mellitus without complications (principal); E78.5 Hyperlipidemia, unspecified; Z79.4 Long term (current) use of insulin
CPT/HCPCS: 36415; 80053; 85025

== ENCOUNTER → 2020-11-27 08:00 | Outpatient (CLI) | payer MEDICARE, SELFPAY ==
[2020-11-29 17:34] LABS: Alanine Aminotransferase 16 U/L (12-78); Albumin Level 3.6 g/dl (3.5-5.0); Albumin/Globulin Ratio 1.1 (1.1-1.8); Alkaline Phosphatase 60 U/L (38-126); Anion Gap 16.1 mEq/L (5-15); Aspartate Amino Transferase 21 U/L (17-59); Bilirubin,Total 0.2 mg/dl (0.2-1.3); Blood Urea Nitrogen 23 mg/dl (9-20); Calcium 8.4 mg/dl (8.4-10.2); Carbon Dioxide 22 mmol/L (22.0-30.0); Chloride 104 mmol/L (98-107); Chol/HDL Ratio 3.4 (1-3.5); Cholesterol 121 mg/dl (140-200); Estimated Glomerular Filt Rate 53 ml/min (>60); GFR (African American) 64 ML/MIN (>60); Globulin 3.2 g/dL (1.3-3.2); HDL Cholesterol 36 mg/dl (40-60); Sodium 136 mmol/L (136-145); Total Protein,Serum 6.8 g/dl (6.3-8.2); Triglycerides 227 mg/dl (30-150); VLDL Cholesterol 45 mg/dL (0-40)
[2020-11-29 17:45] LABS: Direct LDL Cholesterol 56.66 mg/dL (100-129)
[2020-11-29 18:58] LABS: Potassium 6.1 mmoL/L (3.5-5.1)
[2020-11-29 18:59] LABS: Glucose 411 mg/dl (74-100)
== END ==
PROVIDERS: Visit Provider Internal Medicine Adolescent Medicine
DX: E11.9 Type 2 diabetes mellitus without complications (principal); Z79.4 Long term (current) use of insulin
CPT/HCPCS: 80053; 80061

== ENCOUNTER → 2020-12-06 10:06 | Outpatient (CLI) | payer MEDICARE, SELFPAY ==
[2020-12-06 14:13] LABS: Chloride 109 mmol/L (98-107); Potassium 4.6 mmoL/L (3.5-5.1); Sodium 141 mmol/L (136-145)
[2020-12-06 14:15] LABS: Alanine Aminotransferase 16 U/L (12-78); Aspartate Amino Transferase 24 U/L (17-59); Blood Urea Nitrogen 22 mg/dl (9-20); Estimated Glomerular Filt Rate 53 ml/min (>60); GFR (African American) 64 ML/MIN (>60)
[2020-12-06 14:16] LABS: Albumin Level 3.7 g/dl (3.5-5.0); Albumin/Globulin Ratio 1.1 (1.1-1.8); Alkaline Phosphatase 57 U/L (38-126); Anion Gap 14.6 mEq/L (5-15); Bilirubin,Total 0.3 mg/dl (0.2-1.3); Calcium 8.7 mg/dl (8.4-10.2); Carbon Dioxide 22 mmol/L (22.0-30.0); Chol/HDL Ratio 2.6 (1-3.5); Cholesterol 116 mg/dl (140-200); Globulin 3.3 g/dL (1.3-3.2); Glucose 124 mg/dl (74-100); HDL Cholesterol 44 mg/dl (40-60); Triglycerides 109 mg/dl (30-150); VLDL Cholesterol 22 mg/dL (0-40)
[2020-12-06 15:07] LABS: Hemoglobin A1C 10.7 % (4.0-6.0)
== END ==
PROVIDERS: Visit Provider Internal Medicine Adolescent Medicine
DX: E11.9 Type 2 diabetes mellitus without complications (principal); I10 Essential (primary) hypertension; E78.5 Hyperlipidemia, unspecified; Z79.4 Long term (current) use of insulin
CPT/HCPCS: 36415; 80053; 80061; 83036

== ENCOUNTER 2020-12-28 14:06 | Emergency (ER) | payer MEDICARE, SELFPAY ==
[2020-12-28] VITALS (7 sets, daily range): BP systolic 111–153; BP diastolic 52–75; PULSE 63–73; RESP 16–20; TEMP 36.6; O2SAT 94–98; BMI 24.7; BMI 28.3
--- NOTE | 2020-12-28 14:07 | ECG_ITS ---
APPROVED REPORT Exam: Resting ECG HR:75 bpm ECG Measurements Heart Rate 75 AXES MT 182 P 81 QRSd 102 QRS -62 QT 408 T 84 QTc 455 Conclusion Sinus rhythm with marked sinus arrhythmia Pulmonary disease pattern Left anterior fascicular block Abnormal ECG Electronically signed by : Torsten Triana MD 12/30/2020 08:59:36
--- NOTE | 2020-12-28 14:08 | XR_ITS ---
PROCEDURE: XR CHEST PORTABLE CLINICAL HISTORY: weakness COMPARISON: CR CXR2V XR chest 2V from 02/24/2018 CR XR CHEST 2V from 03/09/2019 CR XR CHEST PORTABLE from 08/21/2019 FINDINGS: Prior median sternotomy. Borderline cardiomegaly without failure. Minimal scarring in the lung bases. No lobar consolidation or collapse. No acute bony abnormalities. IMPRESSION: No acute findings. Dictated by: Edwin Mendez MD 12/28/2020 14:55 Edwin Mendez MD in [place] 12/28/2020 14:55
--- NOTE | 2020-12-28 14:10 | HMH.EDGENADL ---
ED Disposition Clinical Impression: Weakness, Paresthesias, Dehydration, Near syncope Disposition: Home, Self-Care Condition on Discharge: Good Additional Instructions: Rest and drink plenty of fluids. Follow-up with your primary care doctor, call tomorrow to make appointment. Return to the emergency department if symptoms worsen. Referrals: Torsten Triana MD [Primary Care Provider] - - Critical Care Critical Care Time: No Attestation: On , the high probability of a clinically significant, sudden or life threatening deterioration of the following system(s) required my full and direct attention, intervention and personal management. The time I documented below is in addition to time spent performing reported procedures but includes the following listed in this critical care notation. Medical Decision Making - Samir Inquiry Pt receiving controlled substance: No Vital Signs: 12/28/20 14:06 12/28/20 15:00 12/28/20 15:30 Temperature 97.8 F Temperature Source Oral Pulse Rate 65 65 Pulse Rate [Radial] 73 Respiratory Rate 16 18 16 Blood Pressure 111/52 L 133/59 L Blood Pressure [Right Arm] 115/60 Blood Pressure Mean Blood Pressure Mean [Right Arm] 78 Blood Pressure Position Sitting Sitting Blood Pressure Position [Right Arm] Sitting 02 Sat by Pulse Oximetry 98 96 97 Oxygen Delivery Method Room Air Room Air Room Air 12/28/20 16:00 12/28/20 16:40 12/28/20 17:00 Temperature Temperature Source Pulse Rate 65 63 69 Pulse Rate [Radial] Respiratory Rate 18 16 20 Blood Pressure 126/65 153/75 H 138/72 Blood Pressure [Right Arm] Blood Pressure Mean 99 Blood Pressure Mean [Right Arm] Blood Pressure Position Sitting Sitting Blood Pressure Position [Right Arm] 02 Sat by Pulse Oximetry 94 L 96 96 Oxygen Delivery Method Room Air Room Air - Lab Data Lab Results 12/28/20 14:21: WBC 4.4 L, RBC 4.17 L, Hgb 12.5 L, Hct 38.3 L, MCV 91.9, MCH 30.0, MCHC 32.6, RDW 13.8, Plt Count 176, MPV 9.4, Neut % (Auto) 76.5, Lymph % (Auto) 14.2, [place] % (Auto) 4.6, Eos % (Auto) 4.2, Baso % (Auto) 0.6, Neut # (Auto) 3.4, Lymph # (Auto) 0.6 L, [place] # (Auto) 0.2, Eos # (Auto) 0.2, Baso # (Auto) 0.0 12/28/20 14:21: Sodium 141, Potassium 4.8, Chloride 109 H, Carbon Dioxide 23, Anion Gap 13.8, BUN 21 H, Creatinine 1.20, Estimated Creat Clear 56, Estimated GFR 58 L, Est GFR ( Amer) 70, Glucose 201 H, Calcium 8.5, Troponin I < 0.01 12/28/20 16:30: Urine Color Yellow, Urine Appearance Clear, Urine pH 5.5, Ur Specific [place] >= 1.030, Urine Protein Trace, Urine Glucose (UA) Trace, Urine Ketones Negative, Urine Blood Negative, Urine Nitrate Negative, Urine Bilirubin Negative, Urine Urobilinogen 0.2, Ur Leukocyte Esterase Negative, Urine RBC Occasional, Urine WBC 3-5, Ur Squamous Epith Cells 3-5, Urine Bacteria Trace Result diagrams: 12/28/20 14:21 12/28/20 14:21 Orders (Tests/Meds): ED MEDICATIONS Discontinued Medications Generic Name Dose Route Start Last Admin Trade Name Freq PRN Reason Stop Dose Admin Sodium Chloride 500 ml 12/28/20 17:04 12/28/20 17:10 Sodium Chloride 0.9% 1000ml Bag IV 12/28/20 17:05 500 ml BOLUS ONE Administration - Radiology Data #1 Image(s): Chest Image Reviewed: Yes I have reviewed radiologist's interpretation PROCEDURE: XR CHEST PORTABLE CLINICAL HISTORY: weakness COMPARISON: CR CXR2V XR chest 2V from 02/24/2018 CR XR CHEST 2V from 03/09/2019 CR XR CHEST PORTABLE from 08/21/2019 FINDINGS: Prior median sternotomy. Borderline cardiomegaly without failure. Minimal scarring in the lung bases. No lobar consolidation or collapse. No acute bony abnormalities. IMPRESSION: No acute findings. Dictated by: Edwin Mendez MD 12/28/2020 14:55 Edwni Mendez MD in [place] 12/28/2020 14:55 - ECG Data Tracing #1 EKG interpreted by Sidney Horton MD: Rhythm: sinus Rate: 75 [place]: Left Ectopy: none Condu
[2020-12-28 14:34] LABS: Potassium 4.8 mmoL/L (3.5-5.1); Sodium 141 mmol/L (136-145)
[2020-12-28 14:37] LABS: Blood Urea Nitrogen 21 mg/dl (9-20); Calcium 8.5 mg/dl (8.4-10.2); Carbon Dioxide 23 mmol/L (22.0-30.0); Creatinine Clearance Estimated 56 mL/min (50-200); Estimated Glomerular Filt Rate 58 ml/min (>60); GFR (African American) 70 ML/MIN (>60); Glucose 201 mg/dl (74-100)
[2020-12-28 14:40] LABS: Basophils % 0.6 % (0.1-2.0); Eosinophils # 0.2 K/mm3 (0.0-0.4); Eosinophils % 4.2 % (0.1-12.0); Hematocrit 38.3 % (42.0-52.0); Hemoglobin 12.5 g/dL (14.1-18.0); Lymphocytes # 0.6 K/mm3 (0.7-4.5); Lymphocytes % 14.2 % (10-50); Mean Corpuscular HGB Conc 32.6 g/dL (31.8-35.4); Mean Corpuscular Volume 91.9 fl (80-94); Mean Platelet Volume 9.4 fl (7.4-10.4); Monocytes # 0.2 K/mm3 (0.1-1.0); Monocytes % 4.6 % (1.7-9.3); Neutrophils # 3.4 K/mm3 (1.8-7.8); Neutrophils % 76.5 % (37.0-80.0); Platelet Count 176 K/mm3 (142-424); Red Blood Count 4.17 M/mm3 (4.60-6.20); Red Cell Distribution Width 13.8 % (11.5-17.5); White Blood Count 4.4 K/mm3 (4.8-10.8)
[2020-12-28 14:57] LABS: Troponin I < 0.01 ng/ml (0.00-0.034)
[2020-12-28 15:01] LABS: Anion Gap 13.8 mEq/L (5-15); Chloride 109 mmol/L (98-107)
[2020-12-28 16:42] LABS: Microscopic, Urine URINE MICROSCOPIC (MICROSCOPIC)
[2020-12-28 16:56] LABS: Appearance,Urine CLEAR (Clear); Bilirubin,Urine Negative (Negative); Blood, Urine Negative (Negative); Color,Urine YELLOW (Yellow); Glucose,Urine (UA) TRACE (Negative); Ketones,Urine Negative (Negative); Leukocyte Esterase,Urine Negative (Negative); Nitrate,Urine Negative (Negative); PH,Urine 5.5 (5.0-8.5); Protein,Urine TRACE (Negative); Specific Gravity, Urine >= 1.030 (1.005-1.030); Urobilinogen,Urine 0.2 EU/dl (0.2)
[2020-12-28 17:14] LABS: Bacteria,Urine Trace /lpf; RBC,Urine Occasional #/hpf (0-3)
== END 2020-12-28 18:52 | disposition home or self-care (01) ==
PROVIDERS: Emergency Provider Emergency Medicine; PCP Internal Medicine Adolescent Medicine
DX: R20.2 Paresthesia of skin (principal); R55 Syncope and collapse; E86.0 Dehydration; I10 Essential (primary) hypertension; I25.2 Old myocardial infarction; E78.5 Hyperlipidemia, unspecified; Z79.899 Other long term (current) drug therapy
CPT/HCPCS: 71045; 80048; 81001; 84484; 85025; 93005; 96365; 99283

== ENCOUNTER → 2021-02-06 07:54 | Outpatient (CLI) | payer MEDICARE, SELFPAY ==
--- NOTE | 2021-02-06 | CA_ITS ---
APPROVED REPORT Exam: Pharmacologic Technologist: Yi Rivera, Ht: 5 ft 9 in Wt: 194 lbs BSA: 2.04 m2 HR: 84 bpm BP: 123/73 mmHg Rhythm: NSR, left axis deviation, poor R wave progression Medical History Medical History: HTN, Hyperlipidemia, Diabetic ??? Noninsulin Medications: Asa,,,,, TAMSULOSIN,,,,, B12,,,,, BisOPROLOL,,,,, Nitroglycerin,,,,, Mirtazapine,,,,, Sitagliptin,,,,, RoSovastatin,,,,, Ropinerole,,,,, Alpraolam,,,,, Cardiac Risk Factors: HTN, Hyperlipidemia, Diabetes (insulin) Stress Test Details Test: LEXISCAN HR Resting HR: 84 bpm Max Heart Rate (APMHR): 136.867307 bpm Max HR Achieved: 101 bpm Target HR (85% APMHR): 115.572662 bpm % of APMHR: 74.26 Recovery HR: 98 bpm BP Resting BP: 123/73 mmHg Max BP: 127/55 mmHg Recovery BP: 127.0/55.0 mmHg ECG Resting ECG: NSR, left axis deviation, poor R wave progression Clinical Exercise duration: 04:01 min Highest Stage Achieved: Stress ECG Conclusion During lexiscan pt experinced SOA, lightheadedness, malaise. No CP. No arrhythmias noted. NS ST-T changes. Hypotension during lexiscan, otherwise unremarkable. Myoview images reported separately. Test Summary RECOVERY 05:00 . . 96 . 95/ 47 . . REST 06:41 . . 84 . 123/ 73 . . Stage 1 01:00 . . 87 . . . . Stage 2 01:00 . . 92 . . . . Stage 3 01:00 . . 94 . 87/ 42 . . Stage 4 01:00 . . 96 . 116/ 57 . . Stage 4 01:01 . . 96 . 116/ 57 . Stop exercise at 04:01 RECOVERY 01:00 . . 95 . 127/ 55 . . RECOVERY 02:00 . . 97 . 127/ 55 . . RECOVERY 03:00 . . 94 . 127/ 55 . . RECOVERY 04:00 . . 96 . 97/ 52 . . RECOVERY 05:00 . . 96 . 95/ 47 . . RECOVERY 06:00 . . 96 . 95/ 47 . . RECOVERY 07:00 . . 96 . 93/ 49 . . RECOVERY 08:00 . . 94 . 93/ 49 . . RECOVERY 09:00 . . 89 . 93/ 49 . . RECOVERY 10:00 . . 92 . 93/ 49 . . RECOVERY 11:00 . . 94 . 93/ 49 . . RECOVERY 12:00 . . 92 . 93/ 49 . . RECOVERY 13:00 . . 89 . 93/ 49 . . RECOVERY 14:00 . . 93 . 93/ 49 . . RECOVERY 15:00 . . 94 . 93/ 49 . . RECOVERY 16:00 . . 93 . 109/ 57 . . RECOVERY 17:00 . . 92 . 109/ 57 . . RECOVERY 18:00 . . 91 . 109/ 57 . . RECOVERY 19:00 . . 91 . 111/ 54 . . RECOVERY 20:00 . . 92 . 111/ 54 . . RECOVERY 20:47 . . 86 . 120/ 63 . . Electronically signed by : Huber George MD 02/06/2021 13:30:41
--- NOTE | 2021-02-06 07:59 | NM_ITS ---
APPROVED REPORT Exam: Nuclear Stress Test Indication: chest pain Patient Location: Outpatient Stress Tech: Yi ELIZABETH Tech:Anamaria Smith TOMASARadha RT(R)(N) Ht: 5 ft 9 in Wt: 194 lbs HR: 84 bpm BP: 123/73 mmHg BSA: 2.04 m2 BMI: 28.6 Procedure: Patient received a 0.4 mg of intravenous Lexiscan, resting heart rate 84 bpm, resting blood pressure 123/73 mmHg, with Lexiscan maximum heart rate achived was 97 bpm which is Less than 85 % of the maximum predicted heart rate and blood pressure was 108/42 mmHg. With Lexiscan, patient denied any complaint of chest pain. pt unable to lay on his belly Electrocardiogram Resting electrocardiogram shows sinus rhythm, with Lexiscan there is less than 1.[address] segment depression noted from the baseline EKG. The EKG portion of the Lexiscan is nondiagnostic. Cardiac Stress and Resting SPECT Images: Cardiac Stress and Resting SPECT images were obtained using technetium 99m Myoview 29.6 mCi stress and 10.07 mCi at rest. Gated SPECT for analysis of segmental wall motion and calculation of the ejection fraction also done. Cardiac stress and resting SPECT images show uniform myocardial activity without segmental perfusion abnormality, computer derived ejection fraction is over 65% with no regional wall motion abnormality, right ventricle is normal size and contractility. Conclusion: 1. The EKG portion of the Lexiscan is nondiagnostic. 2. No scintigraphic evidence of reversible ischemia seen, compared right ejection fraction is over 65% with no regional wall motion abnormality, right ventricle is normal size and contractility. 3. Normal Lexiscan Myoview study. Electronically signed by : Huber George MD 02/06/2021 21:30:43
== END ==
PROVIDERS: PCP Internal Medicine Adolescent Medicine; Visit Provider Nurse Practitioner Family
DX: E78.2 Mixed hyperlipidemia (principal); I10 Essential (primary) hypertension; I20.9 Angina pectoris, unspecified; Z95.1 Presence of aortocoronary bypass graft
CPT/HCPCS: 78452; 93017; A9502; J2785

== ENCOUNTER → 2021-02-22 13:45 | Outpatient (CLI) | payer MEDICARE, SELFPAY ==
--- NOTE | 2021-02-22 13:52 | XR_ITS ---
PROCEDURE: XR LUMBAR SPINE MIN 4V CLINICAL INDICATION: LOW BACK PAIN COMPARISON: CR LS5 LUMBAR SPINE 5 VIEWS from 06/01/2013 FINDINGS: There is normal alignment. There is degenerative disc disease at L4-5 and L5-S1. Multilevel osteophytes. Facet arthritic changes at L4-L5 and S1. Anterior longitudinal ligament calcification noted in the lower thoracic spine. No acute fracture or dislocation. There is suggestion of partial calcification of a bulging disc posteriorly at L3-L4. Other findings:None. IMPRESSION: Multilevel lumbar spondylosis as described above. No acute fracture. No significant change from 06/01/2013. Dictated by: Edwin Mendez MD 02/22/2021 15:58 Edwin Mendez MD in [place] 02/22/2021 15:58
--- NOTE | 2021-02-22 13:52 | XR_ITS ---
PROCEDURE: XR HIP LT 2-3V W/PELVIS CLINICAL INDICATION: LOW BACK PAIN COMPARISON: No exams were available for comparison FINDINGS: There are mild osteoarthritic changes of the left hip. Heterotopic ossification noted at the greater trochanter. Mild vascular calcification. No acute fracture or dislocation. 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
--- NOTE | 2021-02-22 13:52 | XR_ITS ---
PROCEDURE: XR HIP RT 2-3V W/PELVIS CLINICAL INDICATION: LOW BACK PAIN The COMPARISON: No exams were available for comparison FINDINGS: Minimal osteoarthritic changes of the hips. Two metallic seed implants noted at the prostate region. No acute fracture or dislocation. Heterotopic ossification noted along the greater trochanter on the left. Generalized vascular calcification. IMPRESSION: Degenerative changes. Dictated by: Edwin Mendez MD 02/22/2021 16:17 Edwin Mendez MD in [place] 02/22/2021 16:17
== END ==
PROVIDERS: PCP Internal Medicine Adolescent Medicine; Visit Provider Internal Medicine Adolescent Medicine
DX: M54.50 Low back pain, unspecified (principal); M25.552 Pain in left hip; M25.551 Pain in right hip
CPT/HCPCS: 72110; 73502

== ENCOUNTER 2021-06-06 12:41 | Emergency (ER) | payer MEDICARE, SELFPAY ==
[2021-06-06 14:22] VITALS: BP 131/78; PULSE 82; RESP 17; TEMP 36.9; O2SAT 98; BMI 27.6
[2021-06-06 14:30] VITALS: BP 133/85; PULSE 76; O2SAT 97
--- NOTE | 2021-06-06 14:30 | CT_ITS ---
FINAL REPORT TECHNIQUE: Axial images through the abdomen and pelvis were performed without contrast. This study was performed with techniques to keep radiation doses as low as reasonably achievable, (ALARA). Individualized dose reduction techniques using automated exposure control or adjustment of mA and/or kV according to the patient's size were employed. CLINICAL HISTORY: blood in urine FINDINGS: Abdomen: There is scarring in the lung bases. The liver parenchyma is homogeneous. The gallbladder is absent. There are scattered calcifications throughout the pancreas consistent with chronic pancreatitis. The spleen and adrenal are unremarkable. There is a benign-appearing exophytic cyst arising from the lower pole the left kidney measuring 4.5 cm. Pelvis: The urinary bladder is incompletely distended. The appendix is normal. There is no pelvic mass or inflammation. IMPRESSION: Incompletely distended urinary bladder. Benign appearing exophytic cyst in the left kidney. Reviewed, Interpreted and Dictated by Pepe Seo MD Transcribed by Nathan Mosqueda Authenticated by Pepe Seo MD on 06/06/2021 03:52:48 PM [facility]
--- NOTE | 2021-06-06 14:43 | PC.NURSE ---
radiology at bedside for ct
[2021-06-06 14:51] LABS: Basophils % 0.5 % (0.1-2.0); Eosinophils # 0.3 K/mm3 (0.0-0.4); Eosinophils % 5.8 % (0.1-12.0); Hematocrit 37.5 % (42.0-52.0); Hemoglobin 12.2 g/dL (14.1-18.0); Lymphocytes % 17.7 % (10-50); Mean Corpuscular HGB Conc 32.6 g/dL (31.8-35.4); Mean Corpuscular Hemoglobin 31.2 pg (27.0-31.2); Mean Corpuscular Volume 95.7 fl (80-94); Monocytes # 0.3 K/mm3 (0.1-1.0); Monocytes % 5.3 % (1.7-9.3); Neutrophils # 3.9 K/mm3 (1.8-7.8); Neutrophils % 70.7 % (37.0-80.0); Platelet Count 162 K/mm3 (142-424); Red Blood Count 3.92 M/mm3 (4.60-6.20); Red Cell Distribution Width 14.2 % (11.5-17.5); White Blood Count 5.5 K/mm3 (4.8-10.8)
[2021-06-06 14:57] LABS: Alanine Aminotransferase 25 U/L (12-78); Albumin Level 4.4 g/dl (3.5-5.0); Albumin/Globulin Ratio 1.4 (1.1-1.8); Alkaline Phosphatase 52 U/L (38-126); Aspartate Amino Transferase 30 U/L (17-59); Bilirubin,Total 0.4 mg/dl (0.2-1.3); Blood Urea Nitrogen 30 mg/dl (9-20); Calcium 8.8 mg/dl (8.4-10.2); Carbon Dioxide 23 mmol/L (22.0-30.0); Chloride 111 mmol/L (98-107); Creatinine Clearance Estimated 51 mL/min (50-200); Estimated Glomerular Filt Rate 53 ml/min (>60); GFR (African American) 64 ML/MIN (>60); Globulin 3.2 g/dL (1.3-3.2); Glucose 221 mg/dl (74-100); Sodium 143 mmol/L (136-145); Total Protein,Serum 7.6 g/dl (6.3-8.2)
[2021-06-06 15:26] LABS: Microscopic, Urine URINE MICROSCOPIC (MICROSCOPIC)
[2021-06-06 15:48] LABS: Appearance,Urine CLEAR (Clear); Bilirubin,Urine Negative (Negative); Blood, Urine 3+ (Negative); Color,Urine YELLOW (Yellow); Glucose,Urine (UA) Negative (Negative); Ketones,Urine Negative (Negative); Leukocyte Esterase,Urine Negative (Negative); Nitrate,Urine Negative (Negative); PH,Urine 5.5 (5.0-8.5); Protein,Urine 1+ (Negative); Specific Gravity, Urine >= 1.030 (1.005-1.030); Urobilinogen,Urine 0.2 EU/dl (0.2)
--- NOTE | 2021-06-06 15:54 | HMH.EDGENADL ---
ED Disposition Clinical Impression: Hematuria Qualifiers: Hematuria type: gross Qualified Code(s): R31.0 - Gross hematuria Disposition: Home, Self-Care Condition on Discharge: Good Instructions: DI for Hematuria Additional Instructions: Cipro as prescribed. Call Dr. Epstein's office to make appointment for follow-up. Urine culture has been performed, results generally take 2 to 3 days. Follow-up the results of this test with your primary care provider within 2 to 3 days. Prescriptions: Ciprofloxacin HCl [Cipro 500mg Tab] 500 mg PO BID #20 tab Transmission Status: Pending to [facility] Referrals: Torsten Triana MD [Primary Care Provider] - Hans Epstein MD [Staff Physician] - - Critical Care Critical Care Time: No Attestation: On 06/06/21, the high probability of a clinically significant, sudden or life threatening deterioration of the following system(s) required my full and direct attention, intervention and personal management. The time I documented below is in addition to time spent performing reported procedures but includes the following listed in this critical care notation. Medical Decision Making - Samir Inquiry Pt receiving controlled substance: No Vital Signs: 06/06/21 14:22 06/06/21 14:30 Temperature 98.5 F Temperature Source Oral Pulse Rate 76 Pulse Rate [Left Radial] 82 Respiratory Rate 17 Blood Pressure 133/85 Blood Pressure [Right Arm] 131/78 Blood Pressure Mean 109 Blood Pressure Mean [Right Arm] 95 02 Sat by Pulse Oximetry 98 97 - Lab Data Lab Results 06/06/21 14:30: WBC 5.5, RBC 3.92 L, Hgb 12.2 L, Hct 37.5 L, MCV 95.7 H, MCH 31.2, MCHC 32.6, RDW 14.2, Plt Count 162, MPV 9.0, Neut % (Auto) 70.7, Lymph % (Auto) 17.7, [place] % (Auto) 5.3, Eos % (Auto) 5.8, Baso % (Auto) 0.5, Neut # (Auto) 3.9, Lymph # (Auto) 1.0, [place] # (Auto) 0.3, Eos # (Auto) 0.3, Baso # (Auto) 0.0 06/06/21 14:30: Sodium 143, Potassium 5.0, Chloride 111 H, Carbon Dioxide 23, Anion Gap 14.0, BUN 30 H, Creatinine 1.30 H, Estimated Creat Clear 51, Estimated GFR 53 L, Est GFR ( Amer) 64, Glucose 221 H, Calcium 8.8, Total Bilirubin 0.4, AST 30, ALT 25, Alkaline Phosphatase 52, Total Protein 7.6, Albumin 4.4, Globulin 3.2, Albumin/Globulin Ratio 1.4 06/06/21 15:21: Urine Color Yellow, Urine Appearance Clear, Urine pH 5.5, Ur Specific [place] >= 1.030, Urine Protein 1+, Urine Glucose (UA) Negative, Urine Ketones Negative, Urine Blood 3+, Urine Nitrate Negative, Urine Bilirubin Negative, Urine Urobilinogen 0.2, Ur Leukocyte Esterase Negative, Urine RBC Tntc, Urine WBC 5-10, Ur Squamous Epith Cells Occasional, Urine Bacteria 1+ Result diagrams: 06/06/21 14:30 06/06/21 14:30 Orders (Tests/Meds): ORDERS Category Date Time Status Urine Culture Routine Micro 06/06/21 16:12 Ordered - CT Data CT Scan: Abdomen, Pelvis Time Received: 15:[address] Reviewed: Yes: I have viewed the radiologist's interpretation Findings Narrative: Procedure(s): CT abdomen pelvis wo con Accession Number(s): [id number] cc: Torsten Triana MD; Pepe Seo MD; Sidney Horton MD~ FINAL REPORT TECHNIQUE: Axial images through the abdomen and pelvis were performed without contrast. This study was performed with techniques to keep radiation doses as low as reasonably achievable, (ALARA). Individualized dose reduction techniques using automated exposure control or adjustment of mA and/or kV according to the patient's size were employed. CLINICAL HISTORY: blood in urine FINDINGS: Abdomen: There is scarring in the lung bases. The liver parenchyma is homogeneous. The gallbladder is absent. There are scattered calcifications throughout the pancreas consistent with chronic pancreatitis. The spleen and adrenal are unremarkable. There is a benign-appearing exophytic cyst arising from the lower pole the left kidney measuring 4.5 cm. Pelvis: The urinary bladder is incompletely distended. The
[2021-06-06 16:14] LABS: Bacteria,Urine 1+ /lpf; RBC,Urine TNTC #/hpf (0-3); Squamous Epithelial Cell,Urine Occasional #/hpf (0-5)
[2021-06-06 16:46] VITALS: BP 139/63; PULSE 78; RESP 18; TEMP 36.9; O2SAT 98
== END 2021-06-06 16:48 | disposition home or self-care (01) ==
PROVIDERS: Emergency Provider Emergency Medicine; PCP Internal Medicine Adolescent Medicine
DX: R31.0 Gross hematuria (principal); I25.10 Atherosclerotic heart disease of native coronary artery without angina pectoris; E78.5 Hyperlipidemia, unspecified; I10 Essential (primary) hypertension; I25.2 Old myocardial infarction
CPT/HCPCS: 74176; 80053; 81001; 85025; 87086; 87088; 87186; 96365; 99284

== ENCOUNTER 2021-06-14 09:06 | Emergency (ER) | payer MEDICARE, SELFPAY ==
--- NOTE | 2021-06-14 09:05 | ECG_ITS ---
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
[2021-06-14 09:06] VITALS: BP 130/63; PULSE 83; RESP 18; TEMP 36.6; O2SAT 98; BMI 27.1
--- NOTE | 2021-06-14 09:07 | XR_ITS ---
FINAL REPORT CLINICAL HISTORY: cp COMPARISON: 12/28/2020 FINDINGS: SINGLE VIEW CHEST The heart is normal in size. The patient is status post median sternotomy. There is minimal bibasilar atelectasis or scar. There is no pneumothorax. IMPRESSION: Minimal bibasilar atelectasis or scar. Reviewed, Interpreted and Dictated by Levon Osborne III, MD Transcribed by Rula Conn Authenticated by Levon Osborne III, MD on 06/14/2021 10:58:[address] [facility]
--- NOTE | 2021-06-14 09:08 | HMH.EDCP ---
ED Disposition Clinical Impression: Atypical chest pain Disposition: Home, Self-Care Condition on Discharge: Good Instructions: DI for Atypical Chest Pain Additional Instructions: follow up cardiology, return for worse Referrals: Torsten Triana MD [Primary Care Provider] - Wil Villanueva MD [Staff Physician] - - Critical Care Critical Care Time: No Attestation: On , the high probability of a clinically significant, sudden or life threatening deterioration of the following system(s) required my full and direct attention, intervention and personal management. The time I documented below is in addition to time spent performing reported procedures but includes the following listed in this critical care notation. Medical Decision Making - Medical Records Medical records reviewed: Yes: I reviewed the patient's medical records. - Samir Inquiry Pt receiving controlled substance: No Vital Signs: 06/14/21 09:06 06/14/21 09:30 06/14/21 10:01 Temperature 98 F Temperature Source Oral Pulse Rate 74 71 Pulse Rate [Radial] 83 Respiratory Rate 18 17 18 Blood Pressure 116/56 L 102/53 L Blood Pressure [Right Arm] 130/63 Blood Pressure Mean 63 63 Blood Pressure Mean [Right Arm] 85 Blood Pressure Position [Right Arm] Sitting 02 Sat by Pulse Oximetry 98 95 95 Oxygen Delivery Method Room Air 06/14/21 10:30 06/14/21 11:01 Temperature Temperature Source Pulse Rate 72 78 Pulse Rate [Radial] Respiratory Rate 19 19 Blood Pressure 130/71 104/62 L Blood Pressure [Right Arm] Blood Pressure Mean 81 75 Blood Pressure Mean [Right Arm] Blood Pressure Position [Right Arm] 02 Sat by Pulse Oximetry 96 96 Oxygen Delivery Method - Lab Data Lab Results 06/14/21 09:09: WBC 4.7 L, RBC 3.92 L, Hgb 12.2 L, Hct 36.2 L, MCV 92.5, MCH 31.1, MCHC 33.6, RDW 14.1, Plt Count 179, MPV 9.2, Neut % (Auto) 56.9, Lymph % (Auto) 27.3, [place] % (Auto) 5.9, Eos % (Auto) 9.5, Baso % (Auto) 0.4, Neut # (Auto) 2.6, Lymph # (Auto) 1.3, [place] # (Auto) 0.3, Eos # (Auto) 0.4, Baso # (Auto) 0.0 06/14/21 09:09: Sodium 139, Potassium 4.1, Chloride 108 H, Carbon Dioxide 20 L, Anion Gap 15.1 H, BUN 21 H, Creatinine 1.30 H, Estimated Creat Clear 50, Estimated GFR 53 L, Est GFR ( Amer) 64, Glucose 256 H, Calcium 8.5, Total Bilirubin 0.6, AST 28, ALT 24, Alkaline Phosphatase 59, Troponin I < 0.01, Total Protein 7.2, Albumin 4.1, Globulin 3.1, Albumin/Globulin Ratio 1.3, Lipase 170 06/14/21 11:22: Troponin I < 0.01 Result diagrams: 06/14/21 09:09 06/14/21 09:09 Orders (Tests/Meds): ED MEDICATIONS Generic Name Dose Route Start Last Admin Trade Name Freq PRN Reason Stop Dose Admin Sodium Chloride 500 mls @ 999 mls/hr 06/14/21 10:30 06/14/21 10:54 Sod Chlor 0.45% 1000ml Bag IV 07/14/21 10:29 999 mls/hr .Q31M SARAH Administration Discontinued Medications Generic Name Dose Route Start Last Admin Trade Name Freq PRN Reason Stop Dose Admin Aspirin 324 mg 06/14/21 09:07 06/14/21 09:35 Aspirin 81mg Chewable Tablet PO 06/14/21 09:08 324 mg ONCE ONE Administration Sodium Chloride 500 mls @ 500 mls/hr 06/14/21 10:15 06/14/21 10:23 Sod Chloride 0.9% 500ml Bag IV 07/14/21 10:14 Not Given .Q1H SARAH Insulin Human Regular 5 unit 06/14/21 10:07 06/14/21 10:53 Insulin Human Regular 100 Units/Ml 10ml Vial IVP 06/14/21 10:08 5 unit ONCE ONE Administration ORDERS Category Date Time Status Troponin I Q3H Lab 06/14/21 15:15 Ordered - ECG Data Tracing #1 I reviewed this ECG and interpreted as documented below: ekg by me afib 80, lafb, no st elev - Reevaluation(s) Time: 12:05 (reeval, appears well w/o complaint, ok with plan to f/u cardiology) Chest Pain HPI - General Stated Complaint: chest pain Time Seen by Provider: 06/14/21 09:08 Mode of Arrival: Ambulatory Source of Information: Patient Limitations: No Limitations - History of Present Illness HPI
[2021-06-14 09:26] LABS: Basophils % 0.4 % (0.1-2.0); Eosinophils # 0.4 K/mm3 (0.0-0.4); Eosinophils % 9.5 % (0.1-12.0); Hematocrit 36.2 % (42.0-52.0); Hemoglobin 12.2 g/dL (14.1-18.0); Lymphocytes # 1.3 K/mm3 (0.7-4.5); Lymphocytes % 27.3 % (10-50); Mean Corpuscular HGB Conc 33.6 g/dL (31.8-35.4); Mean Corpuscular Hemoglobin 31.1 pg (27.0-31.2); Mean Corpuscular Volume 92.5 fl (80-94); Mean Platelet Volume 9.2 fl (7.4-10.4); Monocytes # 0.3 K/mm3 (0.1-1.0); Monocytes % 5.9 % (1.7-9.3); Neutrophils # 2.6 K/mm3 (1.8-7.8); Neutrophils % 56.9 % (37.0-80.0); Platelet Count 179 K/mm3 (142-424); Red Blood Count 3.92 M/mm3 (4.60-6.20); Red Cell Distribution Width 14.1 % (11.5-17.5); White Blood Count 4.7 K/mm3 (4.8-10.8)
[2021-06-14 09:30] VITALS: BP 116/56; PULSE 74; RESP 17; O2SAT 95
[2021-06-14 09:32] LABS: Chloride 108 mmol/L (98-107); Sodium 139 mmol/L (136-145)
[2021-06-14 09:33] LABS: Potassium 4.1 mmoL/L (3.5-5.1)
[2021-06-14 09:35] LABS: Alanine Aminotransferase 24 U/L (12-78); Alkaline Phosphatase 59 U/L (38-126); Anion Gap 15.1 mEq/L (5-15); Aspartate Amino Transferase 28 U/L (17-59); Bilirubin,Total 0.6 mg/dl (0.2-1.3); Blood Urea Nitrogen 21 mg/dl (9-20); Carbon Dioxide 20 mmol/L (22.0-30.0); Creatinine Clearance Estimated 50 mL/min (50-200); Estimated Glomerular Filt Rate 53 ml/min (>60); GFR (African American) 64 ML/MIN (>60)
[2021-06-14 09:36] LABS: Albumin Level 4.1 g/dl (3.5-5.0); Albumin/Globulin Ratio 1.3 (1.1-1.8); Calcium 8.5 mg/dl (8.4-10.2); Globulin 3.1 g/dL (1.3-3.2); Glucose 256 mg/dl (74-100); Lipase 170 U/L (23-300); Total Protein,Serum 7.2 g/dl (6.3-8.2)
[2021-06-14 09:49] LABS: Troponin I < 0.01 ng/ml (0.00-0.034)
[2021-06-14 10:01] VITALS: BP 102/53; PULSE 71; RESP 18; O2SAT 95
--- NOTE | 2021-06-14 10:03 | PC.NURSE ---
ED MD at for update on POC
[2021-06-14 10:30] VITALS: BP 130/71; PULSE 72; RESP 19; O2SAT 96
[2021-06-14 11:01] VITALS: BP 104/62; PULSE 78; RESP 19; O2SAT 96
[2021-06-14 12:02] LABS: Troponin I < 0.01 ng/ml (0.00-0.034)
[2021-06-14 12:11] LABS: POC Glucose,Bedside 214 (70-110)
[2021-06-14 12:20] VITALS: BP 118/74; PULSE 78; RESP 16; TEMP 36.6; O2SAT 98
== END 2021-06-14 12:22 | disposition home or self-care (01) ==
PROVIDERS: Emergency Provider Emergency Medicine; PCP Internal Medicine Adolescent Medicine
DX: R07.89 Other chest pain (principal); E78.5 Hyperlipidemia, unspecified; I10 Essential (primary) hypertension; I25.10 Atherosclerotic heart disease of native coronary artery without angina pectoris; F03.90 Unspecified dementia, unspecified severity, without behavioral disturbance, psychotic disturbance, mood disturbance, and anxiety
CPT/HCPCS: 71045; 80053; 82962; 83690; 84484; 85025; 93005; 96360; 96361; 96365; 96374; 96375; 99284

== ENCOUNTER 2021-07-04 16:52 | Observation (INO) | payer MEDICARE, SELFPAY ==
[2021-07-04] VITALS (8 sets, daily range): BP systolic 115–179; BP diastolic 53–97; PULSE 77–90; RESP 18; TEMP 36.4; O2SAT 95–97; BMI 28.7; BMI 28.6
--- NOTE | 2021-07-04 17:38 | PC.NURSE ---
spoke with dr. enrique, states she saw pt in office yesterday, glucose was 800s and pt was hyponatremic, reports pt has hx of dementia. States he ultimately will admit pt for ltc placement.
--- NOTE | 2021-07-04 18:25 | XR_ITS ---
PROCEDURE INFORMATION: Exam: XR Chest Exam date and time: 07/04/2021 6:28 PM Age: 85 years old Clinical indication: Other: Weakness; Additional info: Weakness, best images possible due to patient unable to lift chin. TECHNIQUE: Imaging protocol: XR of the chest. Views: 1 view. Total images: 2 COMPARISON: CR XR CHEST PORTABLE 06/14/2021 9:23 AM FINDINGS: Lungs: Pulmonary vasculature grossly normal. No gross pulmonary infiltrates or edema pattern. Minimal stranding in the peripheral left base, atelectasis versus scarring. Pleural spaces: No pleural effusion. No pneumothorax. Heart/Mediastinum: Heart size normal. Prior median sternotomy. No tracheal/mediastinal shift. Vasculature: Mild aortic ectasia/tortuosity. Bones/joints: No acute osseous abnormalities are identified. Osteopenia. Other findings: A 5 mm nodular density projecting in the lateral right apex is unchanged from 06/14/2021 but is not definitely identified on chest x-ray 12/28/2020 or older x-rays. Nonemergent noncontrast chest CT is recommended for further characterization. IMPRESSION: 1. Mild bandlike stranding in the peripheral left base consistent with scarring or subsegmental atelectasis. No gross infiltrates or edema pattern. 2. 5 mm nodular density in the lateral right apex. Nonemergent evaluation with noncontrast chest CT recommended.
[2021-07-04 18:38] LABS: Basophils # 0.1 K/mm3 (0-0.2); Basophils % 2.2 % (0.1-2.0); Eosinophils # 0.2 K/mm3 (0.0-0.4); Hematocrit 40.2 % (42.0-52.0); Hemoglobin 13.4 g/dL (14.1-18.0); Lymphocytes # 0.8 K/mm3 (0.7-4.5); Lymphocytes % 18.6 % (10-50); Mean Corpuscular HGB Conc 33.2 g/dL (31.8-35.4); Mean Corpuscular Hemoglobin 31.9 pg (27.0-31.2); Mean Corpuscular Volume 95.9 fl (80-94); Mean Platelet Volume 10.9 fl (7.4-10.4); Monocytes # 0.2 K/mm3 (0.1-1.0); Neutrophils % 70.2 % (37.0-80.0); Platelet Count 141 K/mm3 (142-424); Red Blood Count 4.19 M/mm3 (4.60-6.20); Red Cell Distribution Width 13.7 % (11.5-17.5); White Blood Count 4.2 K/mm3 (4.8-10.8)
--- NOTE | 2021-07-04 18:38 | PC.NURSE ---
called RT for vbg
[2021-07-04 18:45] LABS: Acetone, Serum (Rapid) None Detected (None Detect); Chloride 98 mmol/L (98-107); Potassium 5.3 mmoL/L (3.5-5.1); Sodium 129 mmol/L (136-145)
[2021-07-04 18:46] LABS: Coronavirus 19, PCR Not Detected (NotDetected); Influenza A, PCR Not Detected (NotDetected); Influenza B, PCR Not Detected (NotDetected)
[2021-07-04 18:48] LABS: Alanine Aminotransferase 21 U/L (12-78); Albumin Level 4.2 g/dl (3.5-5.0); Albumin/Globulin Ratio 1.3 (1.1-1.8); Alkaline Phosphatase 66 U/L (38-126); Anion Gap 15.3 mEq/L (5-15); Aspartate Amino Transferase 23 U/L (17-59); Bilirubin,Total 0.6 mg/dl (0.2-1.3); Blood Urea Nitrogen 35 mg/dl (9-20); Calcium 8.4 mg/dl (8.4-10.2); Carbon Dioxide 21 mmol/L (22.0-30.0); Creatinine Clearance Estimated 42 mL/min (50-200); Estimated Glomerular Filt Rate 39 ml/min (>60); GFR (African American) 47 ML/MIN (>60); Globulin 3.2 g/dL (1.3-3.2); Total Protein,Serum 7.4 g/dl (6.3-8.2)
[2021-07-04 18:57] LABS: Glucose 664 mg/dl (74-100)
--- NOTE | 2021-07-04 18:57 | PC.NURSE ---
Lab called with glucose of 664 repeated and verified with lab. Notified
[2021-07-04 19:23] LABS: VBG Base Excess -7.2 mmol/L (-2.4-2.3); VBG HCO3 19.5 mmol/L (23-30); VBG Oxygen Saturation 79.7 % (50-70); VBG PH 7.28 mmol/L (7.31-7.41); VBG PO2 45.8 mmol/L (28-40); VBG Total CO2 20.8 mmol/L (23-27)
--- NOTE | 2021-07-04 19:27 | HMH.EDGENADL ---
ED Disposition Clinical Impression: Hyperglycemia Disposition: Admitted as Observation Condition on Discharge: Fair Instructions: DI for Hyperglycemia -- Adult Referrals: Torsten Triana MD [Primary Care Provider] - - Critical Care Critical Care Time: No Attestation: On 07/04/21, the high probability of a clinically significant, sudden or life threatening deterioration of the following system(s) required my full and direct attention, intervention and personal management. The time I documented below is in addition to time spent performing reported procedures but includes the following listed in this critical care notation. Medical Decision Making - Samir Inquiry Pt receiving controlled substance: No Vital Signs: 07/04/21 18:41 Temperature 97.6 F Temperature Source Oral Pulse Rate [Left Radial] 77 Respiratory Rate 18 Blood Pressure [Right Arm] 116/57 L Blood Pressure Mean [Right Arm] 76 02 Sat by Pulse Oximetry 97 Oxygen Delivery Method Room Air - Lab Data Lab Results 07/04/21 17:54: WBC 4.2 L, RBC 4.19 L, Hgb 13.4 L, Hct 40.2 L, MCV 95.9 H, MCH 31.9 H, MCHC 33.2, RDW 13.7, Plt Count 141 L, MPV 10.9 H, Neut % (Auto) 70.2, Lymph % (Auto) 18.6, [place] % (Auto) 5.0, Eos % (Auto) 4.0, Baso % (Auto) 2.2 H, Neut # (Auto) 3.0, Lymph # (Auto) 0.8, [place] # (Auto) 0.2, Eos # (Auto) 0.2, Baso # (Auto) 0.1 07/04/21 17:54: Sodium 129 L, Potassium 5.3 H, Chloride 98, Carbon Dioxide 21 L, Anion Gap 15.3 H, BUN 35 H, Creatinine 1.70 H, Estimated Creat Clear 42, Estimated GFR 39 L, Est GFR ( Amer) 47 L, Glucose 664 H*, Calcium 8.4, Total Bilirubin 0.6, AST 23, ALT 21, Alkaline Phosphatase 66, Total Protein 7.4, Albumin 4.2, Globulin 3.2, Albumin/Globulin Ratio 1.3 07/04/21 17:54: Acetone Level None detected 07/04/21 18:37: VBG pH 7.28 L, VBG pCO2 42.0, VBG pO2 45.8 H, VBG HCO3 19.5 L, VBG Total CO2 20.8 L, VBG O2 Saturation 79.7 H, VBG Base Excess -7.2 L 07/04/21 18:40: SARS-CoV-2 (PCR) Not detected, Influenza A Untype (PCR) Not detected, Influenza Type B (PCR) Not detected 07/04/21 19:26: Urine Color Yellow, Urine Appearance Clear, Urine pH 5.0, Ur Specific [place] 1.010, Urine Protein Negative, Urine Glucose (UA) 3+, Urine Ketones Negative, Urine Blood Negative, Urine Nitrate Negative, Urine Bilirubin Negative, Urine Urobilinogen 0.2, Ur Leukocyte Esterase Negative Result diagrams: 07/04/21 17:54 07/04/21 17:54 Orders (Tests/Meds): ED MEDICATIONS Generic Name Dose Route Start Last Admin Trade Name Freq PRN Reason Stop Dose Admin Sodium Chloride 1,000 mls @ 999 mls/hr 07/04/21 19:15 07/04/21 19:07 Sod Chlor 0.9% 1000ml Bag IV 07/04/21 20:15 999 mls/hr .Q1H1M SARAH Administration Sodium Chloride 10 ml 07/04/21 18:24 Sodium Chloride 0.9% 10ml Flush Syringe IV 08/03/21 18:23 NEEDED PRN Maintain IV Site Discontinued Medications Generic Name Dose Route Start Last Admin Trade Name Freq PRN Reason Stop Dose Admin Insulin Human Regular 10 unit 07/04/21 19:58 Insulin Human Regular 100 Units/Ml 10ml Vial IVP 07/04/21 19:59 ONCE ONE ORDERS Category Date Time Status Hemoglobin A1C Stat Lab 07/04/21 20:27 Ordered Urinalysis and Microscopic Stat Lab 07/04/21 19:26 Results - Radiology Data #1 Image(s): Chest Image Reviewed: Yes I have reviewed radiologist's interpretation PROCEDURE INFORMATION: Exam: XR Chest Exam date and time: 07/04/2021 6:28 PM Age: 85 years old Clinical indication: Other: Weakness; Additional info: Weakness, best images possible due to patient unable to lift chin. TECHNIQUE: Imaging protocol: XR of the chest. Views: 1 view. Total images: 2 COMPARISON: CR XR CHEST PORTABLE 06/14/2021 9:23 AM FINDINGS: Lungs: Pulmonary vasculature grossly normal. No gross pulmonary infiltrates or edema pattern. Minimal stranding in the peripheral left base, atelectasis versus scarring. Pleural spaces: No pleural effusion.
[2021-07-04 19:31] LABS: Microscopic, Urine URINE MICROSCOPIC (MICROSCOPIC)
[2021-07-04 20:00] LABS: Appearance,Urine CLEAR (Clear); Bilirubin,Urine Negative (Negative); Blood, Urine Negative (Negative); Color,Urine YELLOW (Yellow); Glucose,Urine (UA) 3+ (Negative); Ketones,Urine Negative (Negative); Leukocyte Esterase,Urine Negative (Negative); Nitrate,Urine Negative (Negative); Protein,Urine Negative (Negative); Urobilinogen,Urine 0.2 EU/dl (0.2)
--- NOTE | 2021-07-04 20:17 | PC.NURSE ---
Dr. Kong devries
[2021-07-04 20:40] LABS: WBC,Urine Occasional #/hpf (0-3)
[2021-07-04 21:09] LABS: Hemoglobin A1C 10.3 % (4.0-6.0)
--- NOTE | 2021-07-04 22:24 | PC.NURSE ---
Pt moved to hospital bed and made comfortable. No new needs at this time. Call light within reach.
[2021-07-05] VITALS (9 sets, daily range): BP systolic 105–166; BP diastolic 65–83; PULSE 75–86; RESP 16–19; TEMP 36.4–36.9; O2SAT 95–98; BMI 26.3
[2021-07-05 02:07] LABS: POC Glucose,Bedside 369 (70-110)
[2021-07-05 06:02] LABS: Chloride 107 mmol/L (98-107); Sodium 134 mmol/L (136-145)
[2021-07-05 06:05] LABS: Blood Urea Nitrogen 25 mg/dl (9-20); Carbon Dioxide 20 mmol/L (22.0-30.0); Creatinine Clearance Estimated 50 mL/min (50-200); Estimated Glomerular Filt Rate 53 ml/min (>60); GFR (African American) 64 ML/MIN (>60)
[2021-07-05 06:06] LABS: Calcium 7.7 mg/dl (8.4-10.2); Glucose 317 mg/dl (74-100)
[2021-07-05 06:10] LABS: POC Glucose,Bedside 336 (70-110)
--- NOTE | 2021-07-05 07:43 | HMH.PHAVTE ---
[facility] Pharmacy VTE Monitoring - Patient Demographics Admission date: 07/05/21 Report Date: 07/05/21 Time: 07:43 Allergies/Adverse Reactions: Patient Allergies No Known Allergies Allergy (Verified 01/08/21 13:47) Height: 1.78 m Weight: 83.518 kg Patient Problems: Current Active Problems Hyperglycemia (Acute) - VTE Risk Labs: VTE Related Lab Results Hgb 13.4 g/dL (14.1-18.0) L 07/04/21 17:54 Hct 40.2 % (42.0-52.0) L 07/04/21 17:54 Plt Count 141 K/mm3 (142-424) L 07/04/21 17:54 BUN 25 mg/dl (9-20) H D 07/05/21 05:30 Creatinine 1.30 mg/dl (0.66-1.25) H D 07/05/21 05:30 Estimated Creat Clear 50 mL/min (50-200) 07/05/21 05:30 Was VTE Risk Assessment Performed: Yes VTE Score: 3 VTE Risk Level: Low Risk Clinical Trial Participant: No - Prophylaxis VTE Prophylaxis Ordered?: Yes Types of VTE Prophylaxis: TEDS Knee High
--- NOTE | 2021-07-05 08:00 | HMH.HP ---
*Admission Date: 07/05/21 *Chief complaint: Hyperglycemia/disorientation/progressive dementia *History of present illness: 85-year-old white male who lives with his in [facility], who has a history of diabetes that has been insulin requiring for several years. Also has a history of coronary atherosclerosis, status post left heart cath that was clean several years ago. 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 He has also had issues with anxiety and in fact has had some hallucinatory activity. Has seen behavioral health here 3 or 4 years ago and I have placed him on a couple of different medications including Lexapro, Seroquel at one point, and he has been on Xanax at home and low-dose. These medicines have not really been effective because he forgets to take them or maintains that he has side effects with them his dementia. His dementia has worsened over the past couple of years and he is now unable to manage his diabetes at home. He cannot cognitively use a fingerstick monitor, and has no idea when or how much insulin has been giving himself. His has been very functional also but she has also developed progressive dementia and is unable to assist him with his medications. They have 1 daughter who lives in [place], but she has been somewhat unusual and to my perspective frustrating in her response to her parents dementia. She does not come to their office visits with them, and she has not been supervising medication administration over the past 8 weeks even though she has told her office staff she is doing this. 3 to 4 months ago we got [facility] involved to help with some PT and OT as well as home safety at the house. Their nurses have communicated to me multiple times that the patient and his are in significant danger from hypoglycemia, home safety issues and that in their regard the patient's daughter has not been helpful in looking for caregivers as they recommended or looking for assisted living type environments that would be helpful. They also note that the daughter has not been helping with medication administration or observation. Home health is actually made an APS referral because of potential danger and problems with medication administration at the [facility]. APS is apparently excepted the referral but I have not heard any determination or results of any investigation. In the context of this decreasing cognitive impairment, the patient came to see me 2 days ago in my [place] office. Was more ataxic than usual, felt that he was tingling all over and appeared slightly dehydrated. His vital signs were okay, and we irwin labs which showed that his glucose was over 800. When I got those labs back the next day I had the patient come back in for a fingerstick to the office and to once again be reevaluated. His glucose was down in the 500 range on her fingerstick monitor and we admitted him to the hospital for IV fluids, control of his hyperglycemia, follow-up of other electrolyte abnormalities that might exist and social work consultation for possible placement and results of the APS investigation. Interestingly, the ER physician, Dr. Todd, told me that his daughter was present in the ER and that she maintains that she helped out with medications. Again, according to my perception and according to direct observation from home health nurses multiple times this is not the case and and Mrs. Shoemaker are basically left to their own devices about the medications. Mrs. 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 Although she has a great veneer of cognitive functioning she is also struggling with progressive dementia and has never been able to tell me
--- NOTE | 2021-07-05 09:56 | SW/DCPLANNER ---
Addendum entered by Ludivina Guzman RN 07/06/21 15:28: Provided [facility] Dementia program with patient's information. DUANE Feliz Addendum entered by Hayley Rodeo 07/06/21 12:39: APS worker has called back stating that she will continue to follow up with patient/family at home and patient could discharge home. I will set up home health services to resume through [facility] and if daughter agrees I will set up Dementia program through [facility]. I have attempted to contact daughter this afternoon with no answer. Patient will discharge home later today. Addendum entered by [facility] 07/06/21 10:05: I spoke with patient's daughter this AM: patient/ are not wanting to have a sitter in the home. Patient's daughter is continuing to work on sitters for this patient at home. Daughter stated this AM that she would check on the patient daily at home. I will resume home health services w/ [facility] once medically stable for discharge. I did attempt to contact APS worker (Alysha) again with no answer and because of this I did make a new report to [facility] (ID# [id number]). I have updated Dr Browne regarding plan. Addendum entered by [facility] 07/05/21 15:05: Amna w/ [facility] has confirmed they will resume services at time of discharge. Addendum entered by [facility] 07/05/21 14:42: I have attempted to contact APS worker again with no answer. Patient's daughter and are present in patient's room. Daughter has stated that the plan is to return home and she will line up private sitters for this patient. I will also contact [facility] to resume services at home. Addendum entered by [facility] 07/05/21 11:26: I spoke with patient's and daughter regarding discharge plans. Both family members stated that they prefer patient to return back home w/ and they are interested in a private sitter at home. I have provided patient's daughter with a private sitters list. I encouraged family to consider placement SNF level of care OR assisted living: family denied this option. Family will visit patient in room this afternoon and I will follow up with family. I am also waiting on a call back from APS worker. Original Note: I have attempted to contact patient's APS worker w/ no answer: VM left at this time. APS worker: Alysha Huang
--- NOTE | 2021-07-05 10:25 | HMH.PHAINT ---
Home medication list was verified using MAR from facility
--- NOTE | 2021-07-05 10:26 | HMH.PTEV ---
Physical Therapy Evaluation Rehab PT IP Evaluation Start: 07/05/21 08:46 Freq: .once Status: Active Protocol: Document 07/05/21 10:17 [facility] (Rec: 07/05/21 10:26 [facility] [id number]) Subjective/History History History 85 yowm adm to [facility] with significant hyperglycemia. He is currently pleasant, but confused. He reports he lives with his , 1-2 steps to enter the home (he is unsure), and uses a cane for ambulation at baseline. Subjective Subjective Pt with no c/o this am, but he does report he thinks eating too many butterscotch candies at home and this has caused all of his problems. Rehab PT IP Eval Objective Appearance Patient Behavior Appropriate,Cooperative, Confused Patient Orientation Person,Birthday Difficulty following instructions mild Speech Pattern Clear,Appropriate Ambulation Patient Able to Ambulate Yes Ambulation Observation IP General Gait Pattern Observation Wide Based Gait Ambulation Distance (feet) 30 Ambulation Assistive Device Straight Cane Ambulation Ability Contact Guard/Hand Hold Balance Ability to Arise Able, uses arms to help Sitting Balance Steady, safe Standing Balance Unsteady Dynamic Sitting Balance Ability Good Dynamic Standing Balance Ability Fair Transfers Bed Transfer Ability Contact Guard/Hand Hold Chair Transfer Ability Contact Guard/Hand Hold Sit to Stand Bed Transfer Ability Contact Guard/Hand Hold Sit to Stand Chair Transfer Ability Contact Guard/Hand Hold ROM All Extremities PT ROM Status WFL Rehab PT IP prob,goals,plan Problems Date of Evaluation: 07/05/21 PT IP Problems Bed Mobility,Transfers,Gait, Self care,Safety Rehab Potential Rehab Potential Good Plan PT Intervention Plan Bed Mobility,Transfers,Gait, Balance,Self care,Safety, Therapeutic Exercise PT Plan Frequency BID Duration LOS Discharge Goals Bed Transfer Ability Supervision/Stand by Sit to Stand Chair Transfer Ability Supervision/Stand by Ambulation Assistive Device Straight Cane Ambulation Distance (feet) 50 Discharge Plan PT Discharge Plan Pt is currently most appropriate for rehab
--- NOTE | 2021-07-05 10:41 | HMH.OTEV ---
OT Inpatient Evaluation Rehab OT IP Evaluation Start: 07/05/21 09:36 Freq: ONCE Status: Complete Protocol: Document 07/05/21 09:53 [facility] (Rec: 07/05/21 10:41 [facility] [id number]) Rehab OT IP Assessment Subjective History Pt oriented x 2 on arrival. Pt agreeable to engage in therapy evaluation. Pt was admitted on 07/04/21 via ED due to hyperglycemia. Pt reports prior to being in the hosptial he lived at home with his . Pt claims he was independent with ADLs, but was dependent upon his to complete IADLs. He used a cane during ambulation. However, due to his dementia the information he provided may not be trustworthy. Pt has a past medical history of: Coronary Artery Disease, Diabetes Mellitus Type 2, Hyperlipidemia, Hypertension, Myocardial Infarction Subjective I wonder if eating those candies have made my sugar high. Pt resting in bed on arrival. Pt agreeable to engage in therapy evaluation. Pt completed bed mobility with cga to go from supine to sitting at eob. Pt stood from eob with cga and straight cane. Pt engaged in functional mobility task of ~ 30 feet with cga and cane. Pt sat back down at eob with cga . Pt completed bed mobility and went from sitting to supine with cga. Pt was left with call abdi and all other needs in reach. Objective Patient Orientation Person,Birthday Upper Extremity Gross ROM Min Limitation <25% Shoulder ROM Limitations Muscle Weakness Elbow ROM Limitations Muscle Weakness Wrist Limitations of Range of Motion Muscle Weakness Bed Mobility bed mobility-scooting,bed mobility - supine/sit,bed
[2021-07-05 11:51] LABS: POC Glucose,Bedside 211 (70-110)
[2021-07-05 16:15] LABS: POC Glucose,Bedside 177 (70-110)
--- NOTE | 2021-07-05 18:40 | PC.NURSE ---
Patient walked the unit with PT/OT today, walked to the bathroom and back to his bed with staff at side. Family was at bedside most of the day, criminal justice social worker spoke with family in regards to disposition plans. Patient has been having symptoms of sun downers towards the end of this shift. Vital signs stable, call light and bed alarm in place and functioning properly.
[2021-07-06 03:58] VITALS: BP 163/93; PULSE 87; RESP 18; TEMP 36.6; O2SAT 97
[2021-07-06 05:43] LABS: POC Glucose,Bedside 250 (70-110)
[2021-07-06 05:43] LABS: POC Glucose,Bedside 222 (70-110)
--- NOTE | 2021-07-06 06:29 | PC.NURSE ---
Pt has remained pleasantly confused t/o shift. Pt can state name and . Has rested well this shift and voiced no c/o of pain, N/V. FSBS have been 250 and 222 covered with sliding scale insulin. Pt remains on room air with O2 sats >90%.
[2021-07-06 07:03] LABS: Chloride 109 mmol/L (98-107); Sodium 138 mmol/L (136-145)
[2021-07-06 07:06] LABS: Blood Urea Nitrogen 17 mg/dl (9-20); Carbon Dioxide 22 mmol/L (22.0-30.0); Creatinine Clearance Estimated 59 mL/min (50-200); Estimated Glomerular Filt Rate 64 ml/min (>60); GFR (African American) 77 ML/MIN (>60); Glucose 210 mg/dl (74-100)
[2021-07-06 07:07] LABS: Basophils # 0.1 K/mm3 (0-0.2); Basophils % 1.1 % (0.1-2.0); Eosinophils # 0.2 K/mm3 (0.0-0.4); Eosinophils % 5.3 % (0.1-12.0); Hematocrit 35.2 % (42.0-52.0); Hemoglobin 11.9 g/dL (14.1-18.0); Lymphocytes # 1.3 K/mm3 (0.7-4.5); Lymphocytes % 30.1 % (10-50); Mean Corpuscular HGB Conc 33.9 g/dL (31.8-35.4); Mean Corpuscular Hemoglobin 31.2 pg (27.0-31.2); Mean Corpuscular Volume 92.1 fl (80-94); Mean Platelet Volume 10.1 fl (7.4-10.4); Monocytes # 0.3 K/mm3 (0.1-1.0); Monocytes % 6.8 % (1.7-9.3); Neutrophils # 2.5 K/mm3 (1.8-7.8); Neutrophils % 56.7 % (37.0-80.0); Platelet Count 134 K/mm3 (142-424); Red Blood Count 3.82 M/mm3 (4.60-6.20); Red Cell Distribution Width 13.7 % (11.5-17.5); White Blood Count 4.3 K/mm3 (4.8-10.8)
--- NOTE | 2021-07-06 07:28 | HMH.DCSUM ---
General - General Admission date:: 07/05/21 Discharge date: 07/06/21 HPI HPI: 85-year-old white male who lives with his in [facility], who has a history of diabetes that has been insulin requiring for several years. Also has a history of coronary atherosclerosis, status post left heart cath that was clean several years ago. 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 He has also had issues with anxiety and in fact has had some hallucinatory activity. Has seen behavioral health here 3 or 4 years ago and I have placed him on a couple of different medications including Lexapro, Seroquel at one point, and he has been on Xanax at home and low-dose. These medicines have not really been effective because he forgets to take them or maintains that he has side effects with them his dementia. His dementia has worsened over the past couple of years and he is now unable to manage his diabetes at home. He cannot cognitively use a fingerstick monitor, and has no idea when or how much insulin has been giving himself. His has been very functional also but she has also developed progressive dementia and is unable to assist him with his medications. They have 1 daughter who lives in [place], but she has been somewhat unusual and to my perspective frustrating in her response to her parents dementia. She does not come to their office visits with them, and she has not been supervising medication administration over the past 8 weeks even though she has told her office staff she is doing this. 3 to 4 months ago we got [facility] involved to help with some PT and OT as well as home safety at the house. Their nurses have communicated to me multiple times that the patient and his are in significant danger from hypoglycemia, home safety issues and that in their regard the patient's daughter has not been helpful in looking for caregivers as they recommended or looking for assisted living type environments that would be helpful. They also note that the daughter has not been helping with medication administration or observation. [facility] is actually made an APS referral because of potential danger and problems with medication administration at the [facility]. APS is apparently excepted the referral but I have not heard any determination or results of any investigation. In the context of this decreasing cognitive impairment, the patient came to see me 2 days ago in my [place] office. Was more ataxic than usual, felt that he was tingling all over and appeared slightly dehydrated. His vital signs were okay, and we irwin labs which showed that his glucose was over 800. When I got those labs back the next day I had the patient come back in for a fingerstick to the office and to once again be reevaluated. His glucose was down in the 500 range on her fingerstick monitor and we admitted him to the hospital for IV fluids, control of his hyperglycemia, follow-up of other electrolyte abnormalities that might exist and social work consultation for possible placement and results of the APS investigation. Interestingly, the ER physician, Dr. Todd, told me that his daughter was present in the ER and that she maintains that she helped out with medications. Again, according to my perception and according to direct observation from home health nurses multiple times this is not the case and and Mrs. Shoemaker are basically left to their own devices about the medications. Mrs. 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 Although she has a great veneer of cognitive functioning she is also struggling with progressive dementia and has never been able to tell me his medications or any kind of s
[2021-07-06 08:00] VITALS: BP 114/67; PULSE 90; RESP 20; TEMP 36.9; O2SAT 95
[2021-07-06 11:33] LABS: POC Glucose,Bedside 297 (70-110)
--- NOTE | 2021-07-06 12:28 | CARE MANAGER ---
Patient requires a walker as he has a mobility impairment that cannot be corrected with a cane. DUANE Feliz
--- NOTE | 2021-07-06 14:53 | PC.NURSE ---
PIV access lost. D/t pt's request and pt having a discharge order in at this time, no new PIV placed.
--- NOTE | 2021-07-06 15:37 | PC.NURSE ---
Addendum entered by Ramila Ramos RN 07/06/21 15:49: Spoke to daughter, she will be here in approx 15 min Original Note: Called daughter to let her know of discharge order. No answer, message left.
[2021-07-06 15:48] VITALS: BMI 26.3
[2021-07-06 15:50] VITALS: BP 153/80; PULSE 86; RESP 18; TEMP 36.5; O2SAT 96
--- NOTE | 2021-07-09 15:30 | CARE MANAGER ---
Spoke with in post-discharge interview, she states that patient is dong well and had his follow-up appointment with Dr. Triana.
== END 2021-07-06 16:25 | disposition home health service (06) ==
LOC: ER 20:26 → 2ND 22:03 → ICU 07-05 02:43
PROVIDERS: Admitting Provider Internal Medicine Adolescent Medicine; Emergency Provider Emergency Medicine; PCP Internal Medicine Adolescent Medicine; Visit Provider Internal Medicine Adolescent Medicine
DX: E11.42 Type 2 diabetes mellitus with diabetic polyneuropathy (principal); Z20.822 Contact with and (suspected) exposure to COVID-19; Z79.4 Long term (current) use of insulin; Z79.899 Other long term (current) drug therapy; I25.10 Atherosclerotic heart disease of native coronary artery without angina pectoris; Z95.1 Presence of aortocoronary bypass graft; I10 Essential (primary) hypertension; D64.9 Anemia, unspecified
CPT/HCPCS: G0378; 36415; 71045; 80048; 80053; 81001; 82009; 82803; 82962; 83036; 85025; 97116; 97162; 97166; 97530; 99285; C9803; U0003; U0005

== ENCOUNTER 2022-01-23 10:29 | Emergency (ER) | payer MEDICARE, SELFPAY ==
[2022-01-23] VITALS (7 sets, daily range): BP systolic 119–157; BP diastolic 60–78; PULSE 70–78; RESP 16–19; TEMP 36.6–36.7; O2SAT 94–95; BMI 27.1
--- NOTE | 2022-01-23 10:46 | XR_ITS ---
FINAL REPORT CLINICAL HISTORY: epigastric pain COMPARISON: June 2021 FINDINGS: The heart is mildly enlarged. There are multiple sternotomy wires. The mediastinum is within normal limits. There are mild chronic changes at the lung bases. There is no acute cardiopulmonary process. There is no pleural effusion. There is no pneumothorax. The bony thorax is intact. IMPRESSION: No acute cardiopulmonary process. Reviewed, Interpreted and Dictated by Pepe Seo MD Transcribed by Nathan Mosqueda Authenticated and . [facility]
--- NOTE | 2022-01-23 10:55 | HMH.EDGENADL ---
Discharge Plan Disposition Patient Disposition: Home, Self-Care Condition: Good Prescriptions Prescriptions: New ondansetron 4 mg tablet,disintegrating 4 mg PO Q8H PRN (Reason: nausea and vomiting) 4 Days Qty: 12 0RF No Action mirtazapine 15 mg tablet 15 mg PO HS Januvia 100 mg tablet 100 mg PO DAILY ropinirole 0.5 mg tablet 1 mg PO HS Rx Instructions: administer 1-3 hours before bedtime tamsulosin 0.4 mg capsule 0.4 mg PO HS (DME) pen needle, diabetic [Droplet Pen Needle] 32 gauge x 5/32 needle See Rx Instructions .ROUTE .MEDSUPPLY Qty: 50 Rx Instructions: As directed (DME) insulin syringe-needle U-100 1 mL 31 gauge x 5/16 syringe See Rx Instructions .ROUTE .MEDSUPPLY Qty: 10 Rx Instructions: As directed nitroglycerin 0.4 mg tablet, sublingual 0.4 mg SUBLINGUAL Q5M PRN (Reason: chest pain) Qty: 25 0RF Rx Instructions: do not exceed 3 doses in 15 minutes triamcinolone acetonide 0.025 % ointment 1 applic TP DAILY Qty: 80 0RF tramadol 50 mg tablet 50 mg PO BID PRN (Reason: pain) 30 Days Qty: 60 0RF insulin glargine 100 unit/mL (3 mL) insulin pen 60 unit SQ HS 90 Days Qty: 54 0RF rosuvastatin 20 mg tablet 20 mg PO DAILY 90 Days Qty: 90 0RF alprazolam 0.5 mg tablet 0.5 mg PO BID PRN vitamin B complex Capsule 1 cap PO DAILY insulin asp prt-insulin aspart 100 unit/mL (70-30) solution 20 unit SQ .Noon Rx Instructions: with lunch tamsulosin 0.4 mg capsule 0.4 mg PO HS Qty: 30 2RF escitalopram oxalate [Lexapro] 10 mg tablet 10 mg PO DAILY Qty: 30 2RF aspirin 81 MG tablet,chewable 81 mg PO DAILY (DME) blood-glucose meter, drum-type 1 EACH kit 1 each * TID Rx Instructions: Use as directed TID to test Blood Sugar cholecalciferol (vitamin D3) 50 MCG tablet 50 mcg PO DAILY Referrals Follow up/Referrals: Torsten Triana MD [Primary Care Provider] - See instructions Activity Restrictions/Add. Instructions Additional Instructions/Restrictions: You were evaluated in the emergency department today. At this time, I feel your symptoms are likely due to a gastroenteritis. A prescription for Zofran was sent to the pharmacy for you to take as needed for nausea and vomiting. Follow-up with your primary care provider over the next 48 hours. Make sure that you stay orally hydrated at home. Return to the emergency department for any new or worsening symptoms Clinical Impressions Clinical Impression: Diarrhea, Gastroenteritis Instructions Patient Instructions: DI for Viral Gastroenteritis -- Adult, DI for Muscle Weakness Discharge ED Provider: Kamla Wells General Adult HPI General Chief complaint: Weakness Stated complaint: Diarreah, High Sugar, Nausea Time Seen by Provider: 01/23/22 10:32 History of Present Illness HPI narrative: This patient is an 86-year-old male with a history of insulin-dependent diabetes, CAD status post bypass, hypertension, hyperlipidemia, and peripheral arterial disease presented to the emergency department for evaluation of epigastric abdominal pain. This pain started this morning. He has had nausea, vomiting, and loose watery diarrhea today as well. His daughter at bedside expresses concern that he is just not feeling well and that she had to get him out of bed today, which is abnormal. She checked his blood sugar and it was greater than 200 at home, so she gave his insulin. Given continued pain, she department for evaluation. He describes it as a discomfort and states that it is mild. Nothing seems to make it better or worse. No other concerns noted at this time, such as fevers, chills, chest pain, shortness of breath, or other issues. Related Data Home Medications Medication Instructions Recorded Confirmed aspirin 81 mg chewable tablet 81 mg PO DAILY [facility] 08/14/18 12/13/21 mirtazapine 15 mg tablet 15 mg PO HS Mo
--- NOTE | 2022-01-23 11:02 | CT_ITS ---
FINAL REPORT TECHNIQUE: After the administration of oral and intravenous contrast, axial images were obtained through the abdomen and pelvis by computed tomography. The study was performed with techniques to keep radiation dose as low as reasonably achievable, (ALARA). Individual dose reduction techniques using automated exposure control or adjustment of mA and/or kV according to the patient's size were employed. CLINICAL HISTORY: Epigastric pain x wks, worsened x last days. C/o N/V/D COMPARISON: 06/06/2021 FINDINGS: Abdomen: There is scarring or atelectasis in the lung bases. The liver parenchyma is homogeneous. The gallbladder is absent. The spleen is unremarkable. There are calcifications Pred throughout the pancreas consistent with chronic pancreatitis. The adrenal glands are unremarkable. Benign-appearing cyst are present in both kidneys measuring up to 4.2 cm in diameter on the left. The aorta is normal in caliber. There is no free fluid or adenopathy. Pelvis: The appendix is unremarkable. The urinary bladder is incompletely distended. Surgical clips are seen in the floor of the pelvis. There is no free fluid or adenopathy. There is mild narrowing of the hip joint spaces bilaterally. IMPRESSION: No acute intra-abdominal or intrapelvic abnormality. Stable left renal cyst. Changes from chronic pancreatitis. Reviewed, Interpreted and Dictated by Pepe Seo MD Transcribed by Regla Harry Authenticated and [facility]
--- NOTE | 2022-01-23 11:05 | ECG_ITS ---
APPROVED REPORT Exam: Resting ECG HR:77 bpm ECG Measurements Heart Rate 77 AXES QRSd 118 QRS -25 QT 407 T 93 QTc 438 Conclusion ATRIAL FIBRILLATION BORDERLINE LEFT AXIS DEVIATION [QRS AXIS < -20] MODERATE INTRAVENTRICULAR CONDUCTION DELAY [110+ ms QRS DURATION] ABNORMAL QRS-T ANGLE [QRS-T AXIS DIFFERENCE > 60] ABNORMAL ECG UNCONFIRMED REPORT Electronically signed by : Torsten Triana MD 01/23/2022 22:03:51
[2022-01-23 11:11] LABS: POC Glucose,Bedside 230 (70-110)
--- NOTE | 2022-01-23 11:11 | PC.NURSE ---
rad at BS for portable xray
--- NOTE | 2022-01-23 11:27 | PC.NURSE ---
Pt updated on POC (orders placed by BRAULIO BAUM), call light within reach -hooked to BS rail. Pt has a urinal at BS, pt notified pt of order for urine specimen. covid swab sent
[2022-01-23 11:28] LABS: Basophils % 0.5 % (0.1-2.0); Eosinophils # 0.2 K/mm3 (0.0-0.4); Eosinophils % 2.3 % (0.1-12.0); Hematocrit 38.1 % (42.0-52.0); Hemoglobin 12.5 g/dL (14.1-18.0); Lactic Acid 1.2 mmol/L (0.7-2.1); Lymphocytes # 0.6 K/mm3 (0.7-4.5); Lymphocytes % 7.7 % (10-50); Mean Corpuscular HGB Conc 32.8 g/dL (31.8-35.4); Mean Corpuscular Hemoglobin 30.2 pg (27.0-31.2); Mean Corpuscular Volume 92.1 fl (80-94); Mean Platelet Volume 8.9 fl (7.4-10.4); Monocytes # 0.3 K/mm3 (0.1-1.0); Neutrophils # 6.6 K/mm3 (1.8-7.8); Neutrophils % 85.6 % (37.0-80.0); Platelet Count 171 K/mm3 (142-424); Red Blood Count 4.14 M/mm3 (4.60-6.20); Red Cell Distribution Width 13.7 % (11.5-17.5); White Blood Count 7.7 K/mm3 (4.8-10.8)
[2022-01-23 11:29] LABS: Alanine Aminotransferase 23 U/L (12-78); Albumin Level 4.2 g/dl (3.5-5.0); Albumin/Globulin Ratio 1.3 (1.1-1.8); Alkaline Phosphatase 73 U/L (38-126); Anion Gap 16.9 mEq/L (5-15); Aspartate Amino Transferase 28 U/L (17-59); Bilirubin,Total 0.2 mg/dl (0.2-1.3); Blood Urea Nitrogen 26 mg/dl (9-20); Carbon Dioxide 25 mmol/L (22.0-30.0); Chloride 104 mmol/L (98-107); Creatinine Clearance Estimated 50 mL/min (50-200); Estimated Glomerular Filt Rate 52 ml/min (>60); GFR (African American) 63 ML/MIN (>60); Globulin 3.3 g/dL (1.3-3.2); Glucose 251 mg/dl (74-100); Lipase 177 U/L (23-300); Potassium 4.9 mmoL/L (3.5-5.1); Sodium 141 mmol/L (136-145); Total Protein,Serum 7.5 g/dl (6.3-8.2)
[2022-01-23 11:31] LABS: MANUAL DIFFERENTIAL MANUAL DIFFERENTIAL (MANUAL DIFF)
[2022-01-23 11:31] LABS: Coronavirus 19, PCR Not Detected (NotDetected); Influenza A, PCR Not Detected (NotDetected); Influenza B, PCR Not Detected (NotDetected)
[2022-01-23 11:43] LABS: Eosinophils % 1 % (0-3); Lymphocytes % 9 % (10-50); Monocytes % 3 % (2-9); Neutrophils % 87 % (42-76); Platelet Estimate Normal; RBC Morphology Normal; Total Cells Counted 100
[2022-01-23 11:44] LABS: Troponin I 0.01 ng/ml (0.00-0.034)
--- NOTE | 2022-01-23 13:32 | PC.NURSE ---
checked on pt at this time, at BS. Pt states no needs at this time. Call light within reach. IV is infiltrated at this time. Explained to pt will have to restarted IV if pt is admitted. ER states okay to wait to restick pt after speaking with pt PCP.
[2022-01-23 15:18] LABS: Troponin I 0.03 ng/ml (0.00-0.034)
== END 2022-01-23 16:39 | disposition home or self-care (01) ==
PROVIDERS: Emergency Provider Emergency Medicine; PCP Internal Medicine Adolescent Medicine
DX: K52.9 Noninfective gastroenteritis and colitis, unspecified (principal)
CPT/HCPCS: 36415; 71045; 74177; 80053; 82962; 83605; 83690; 84484; 85007; 85025; 93005; 96365; 96375; 99285; C9803; J2405; Q9967; U0003; U0005

== ENCOUNTER 2022-04-24 16:11 | Emergency (ER) | payer MEDICARE, SELFPAY ==
[2022-04-24 16:39] VITALS: BP 128/63; PULSE 89; RESP 20; TEMP 36.8; O2SAT 95; BMI 29.5
--- NOTE | 2022-04-24 16:44 | PC.NURSE ---
called lab for blood draw
--- NOTE | 2022-04-24 16:56 | HMH.EDGENADL ---
Discharge Plan Disposition Patient Disposition: Home, Self-Care Prescriptions Prescriptions: New cefdinir 300 mg capsule 300 mg PO BID 10 Days Qty: 20 0RF No Action mirtazapine 15 mg tablet 15 mg PO HS Januvia 100 mg tablet 100 mg PO DAILY ropinirole 0.5 mg tablet 1 mg PO HS Rx Instructions: administer 1-3 hours before bedtime (DME) pen needle, diabetic [Droplet Pen Needle] 32 gauge x 5/32 needle See Rx Instructions .ROUTE .MEDSUPPLY Qty: 50 Rx Instructions: As directed (DME) insulin syringe-needle U-100 1 mL 31 gauge x 5/16 syringe See Rx Instructions .ROUTE .MEDSUPPLY Qty: 10 Rx Instructions: As directed triamcinolone acetonide 0.025 % ointment 1 applic TP DAILY Qty: 80 0RF insulin glargine 100 unit/mL (3 mL) insulin pen 60 unit SQ HS 90 Days Qty: 54 0RF rosuvastatin 20 mg tablet 20 mg PO DAILY 90 Days Qty: 90 0RF insulin asp prt-insulin aspart 100 unit/mL (70-30) solution 20 unit SQ .Noon Rx Instructions: with lunch tamsulosin 0.4 mg capsule 0.4 mg PO HS Qty: 30 2RF escitalopram oxalate [Lexapro] 10 mg tablet 10 mg PO DAILY Qty: 30 2RF nitroglycerin 0.4 mg tablet, sublingual 0.4 mg SUBLINGUAL Q5M PRN (Reason: chest pain) Qty: 25 0RF Rx Instructions: do not exceed 3 doses in 15 minutes aspirin 81 MG tablet,chewable 81 mg PO DAILY (DME) blood-glucose meter, drum-type 1 EACH kit 1 each * TID Rx Instructions: Use as directed TID to test Blood Sugar Referrals Follow up/Referrals: Torsten Triana MD [Primary Care Provider] - See instructions Clinical Impressions Clinical Impression: Hematuria Discharge ED Provider: Basim Rushing General Adult HPI General Chief complaint: Urogenital-Female Stated complaint: passing blood Time Seen by Provider: 04/24/22 16:15 Mode of Arrival: Ambulatory Source of Information: Patient Limitations: No Limitations Description of Symptoms (Recalled from ER Triage Doc. by RN): pt to ed c/o urinary retention and hematuria since last night. pt states all he is able to produce is drops of blood. History of Present Illness HPI narrative: 86-year-old male presents with urinary retention and hematuria. He says that it all started last night. He has no fever or chills. No abdominal pain. He has just been peeing drops of blood on the hematuria. No dysuria no fevers. No flank pain. No chest pain. Related Data Home Medications Medication Instructions Recorded Confirmed aspirin 81 mg chewable tablet 81 mg PO DAILY [facility] 08/14/18 02/26/22 mirtazapine 15 mg tablet 15 mg PO HS Mood 06/07/20 02/26/22 ropinirole 0.5 mg tablet 1 mg PO HS Restless leg 01/08/21 02/26/22 sitagliptin phosphate 100 mg 100 mg PO DAILY Diabetes 01/08/21 02/26/22 tablet (Januvia) blood-glucose meter, drum-type 07/05/21 02/26/22 pen needle, diabetic 32 gauge x #50 ea 08/30/21 02/26/22 (Droplet Pen Needle) insulin syringe-needle U-100 1 mL #10 ea 11/08/21 02/26/22 31 gauge x 07/30 insulin aspar prt-insulin aspart 20 unit SQ .Noon Diabetes 12/13/21 02/26/22 100 unit/mL (70-30) subcutaneous soln Previous Rx's Medication Instructions Recorded triamcinolone acetonide 0.025 % 1 applic topical DAILY #80 grams 10/18/21 topical ointment insulin glargine 100 unit/mL (3 60 unit (0.6 mL) SQ HS Diabetes 90 11/27/21 mL) subcutaneous pen days #54 mL rosuvastatin 20 mg tablet 20 mg PO DAILY High cholesterol 90 11/27/21 days #90 tabs escitalopram oxalate 10 mg tablet 10 mg PO DAILY #30 tabs 12/13/21 (Lexapro) tamsulosin 0.4 mg capsule 0.4 mg PO HS #30 caps 12/13/21 nitroglycerin 0.4 mg sublingual 0.4 mg sublingual Q5M PRN chest 02/26/22 tablet pain #25 tabs cefdinir 300 mg capsule 300 mg PO BID 10 days #20 caps 04/24/22 Allergies Allergy/AdvReac Type Severity Reaction Status Date / Time No Known Allergies Allergy Verified 02/26/22 13:14
[2022-04-24 17:01] VITALS: BP 120/60; PULSE 88; RESP 16; O2SAT 96
[2022-04-24 17:18] LABS: Microscopic, Urine URINE MICROSCOPIC (MICROSCOPIC)
[2022-04-24 17:21] LABS: Appearance,Urine TURBID (Clear); Blood, Urine 3+ (Negative); Color,Urine RED (Yellow); Glucose,Urine (UA) 1+ (Negative); Ketones,Urine 1+ (Negative); Leukocyte Esterase,Urine 2+ (Negative); Nitrate,Urine POSITIVE (Negative); PH,Urine 6.5 (5.0-8.5); Protein,Urine 3+ (Negative); Specific Gravity, Urine 1.015 (1.005-1.030); Urobilinogen,Urine >=8.0 EU/dl (0.2)
[2022-04-24 17:30] VITALS: BP 112/56; PULSE 77; RESP 18; O2SAT 95
[2022-04-24 17:42] LABS: Bilirubin,Urine Negative (Negative); RBC,Urine TNTC #/hpf (0-3)
[2022-04-24 17:43] LABS: Bacteria,Urine Trace /lpf
[2022-04-24 17:47] LABS: Chloride 112 mmol/L (98-107); Potassium 5.4 mmoL/L (3.5-5.1); Sodium 140 mmol/L (136-145)
[2022-04-24 17:49] LABS: Blood Urea Nitrogen 35 mg/dl (9-20); Creatinine Clearance Estimated 46 mL/min (50-200); Estimated Glomerular Filt Rate 44 ml/min (>60)
[2022-04-24 17:50] LABS: Alanine Aminotransferase 20 U/L (12-78); Albumin Level 4.1 g/dl (3.5-5.0); Albumin/Globulin Ratio 1.3 (1.1-1.8); Alkaline Phosphatase 56 U/L (38-126); Anion Gap 13.4 mEq/L (5-15); Aspartate Amino Transferase 28 U/L (17-59); Bilirubin,Total 0.5 mg/dl (0.2-1.3); Calcium 8.4 mg/dl (8.4-10.2); Carbon Dioxide 20 mmol/L (22.0-30.0); GFR (African American) 54 ML/MIN (>60); Globulin 3.2 g/dL (1.3-3.2); Glucose 199 mg/dl (74-100); Total Protein,Serum 7.3 g/dl (6.3-8.2)
[2022-04-24 18:01] VITALS: BP 104/88; PULSE 81; RESP 20; O2SAT 97
[2022-04-24 18:15] LABS: Basophils % 0.3 % (0.1-2.0); Eosinophils # 0.1 K/mm3 (0.0-0.4); Eosinophils % 1.5 % (0.1-12.0); Hematocrit 34.2 % (42.0-52.0); Hemoglobin 11.3 g/dL (14.1-18.0); Lymphocytes # 0.9 K/mm3 (0.7-4.5); Lymphocytes % 13.7 % (10-50); Mean Corpuscular Hemoglobin 30.2 pg (27.0-31.2); Mean Corpuscular Volume 91.5 fl (80-94); Mean Platelet Volume 8.9 fl (7.4-10.4); Monocytes # 0.3 K/mm3 (0.1-1.0); Monocytes % 4.5 % (1.7-9.3); Platelet Count 177 K/mm3 (142-424); Red Blood Count 3.73 M/mm3 (4.60-6.20); Red Cell Distribution Width 13.9 % (11.5-17.5); White Blood Count 6.3 K/mm3 (4.8-10.8)
[2022-04-24 18:31] VITALS: BP 140/77; PULSE 86; RESP 18; O2SAT 97
--- NOTE | 2022-04-24 18:49 | PC.NURSE ---
Dr Tete devries
[2022-04-24 19:56] VITALS: BP 134/79; PULSE 91; RESP 18; TEMP 36.8; O2SAT 97
== END 2022-04-24 20:08 | disposition home or self-care (01) ==
PROVIDERS: Emergency Provider Emergency Medicine; PCP Internal Medicine Adolescent Medicine
DX: R31.9 Hematuria, unspecified (principal); R33.9 Retention of urine, unspecified; I25.10 Atherosclerotic heart disease of native coronary artery without angina pectoris; Z86.79 Personal history of other diseases of the circulatory system; F41.1 Generalized anxiety disorder; F03.90 Unspecified dementia, unspecified severity, without behavioral disturbance, psychotic disturbance, mood disturbance, and anxiety; E11.9 Type 2 diabetes mellitus without complications; K21.9 Gastro-esophageal reflux disease without esophagitis; I10 Essential (primary) hypertension; Z95.1 Presence of aortocoronary bypass graft; Z82.49 Family history of ischemic heart disease and other diseases of the circulatory system; Z83.3 Family history of diabetes mellitus; Z81.1 Family history of alcohol abuse and dependence
CPT/HCPCS: 36415; 80053; 81001; 85025; 87086; 99284

== ENCOUNTER 2022-07-15 06:08 | Emergency (ER) | payer MEDICARE, SELFPAY ==
[2022-07-15 06:08] VITALS: BP 118/54; PULSE 77; RESP 16; TEMP 37; O2SAT 97; BMI 29.5
--- NOTE | 2022-07-15 06:16 | XR_ITS ---
FINAL REPORT CLINICAL HISTORY: Left lower extremity deformity and pain after a fall FINDINGS: Two views were obtained. There comminuted displaced fractures of the distal tibial diaphysis and the distal fibular metadiaphysis. There is posterior and lateral displacement of the distal tibia fracture. There is lateral displacement of the distal fibular fracture. There is also a mildly displaced proximal fibular fracture. The mortise is intact. Moderate chondrocalcinosis is seen in the left knee joint. IMPRESSION: Proximal and distal fractures of the fibula as above. Fracture of the distal tibia as above. Reviewed, Interpreted and Dictated by Pepe Seo MD Transcribed by Regla Harry Authenticated and [facility]
--- NOTE | 2022-07-15 06:16 | XR_ITS ---
FINAL REPORT CLINICAL HISTORY: fall with bilateral hip pain FINDINGS: BILATERAL HIP 2 views were obtained. There is no acute fracture or dislocation. There are hypertrophic changes at the greater trochanter, left greater than right probably due to osteoarthritis. There is no soft tissue abnormality. IMPRESSION: No acute bony abnormality. Reviewed, Interpreted and Dictated by Pepe Seo MD Transcribed by Regla Harry Authenticated and . [facility]
--- NOTE | 2022-07-15 06:16 | CT_ITS ---
FINAL REPORT TECHNIQUE: Axial images were obtained of the cervical spine by computed tomography. Coronal and sagittal reconstruction process performed. This study was performed with techniques to keep radiation doses as low as reasonably achievable (ALARA). Individualized dose reduction techniques using automated exposure control or adjustment of mA and/or kV according to the patient''s size were employed. CLINICAL HISTORY: Status post fall with neck pain FINDINGS: There is no acute fracture. There are advanced hypertrophic changes of degenerative disc disease at C5-6 and C6-7. There is high-grade narrowing of the left neural foramen at C5-6 and bilaterally at C6-7. There is a prominent calcification or ossification posterior to the dens which is probably degenerative. There is dense calcification at the carotid bifurcation. Postoperative changes are seen from left thyroidectomy. IMPRESSION: No acute fracture. Advanced hypertrophic changes of degenerative disc disease most pronounced at C5-6 and C6-7. Reviewed, Interpreted and Dictated by Pepe Seo MD Transcribed by Regla Harry Authenticated and [facility]
--- NOTE | 2022-07-15 06:17 | CT_ITS ---
FINAL REPORT TECHNIQUE: multiple axial CT images were performed from the foramen magnum to the vertex without enhancement. CLINICAL HISTORY: fall unknown loc head trauma COMPARISON: 10/12/2020 FINDINGS: There is mild to moderate atrophy with proportional ventriculomegaly. There is periventricular white matter change likely related to small vessel disease. There is no evidence of hemorrhage. No masses are identified. There is a calcification in the right middle cerebral artery seen on image 19 of series 3 and image 30 of series 1001. This is difficult to appreciate on the prior exam. No extra-axial fluid is seen. The sinuses are normal. IMPRESSION: Atrophy and chronic changes without acute process. Calcification in the right middle cerebral artery not seen on the prior exam. Reviewed, Interpreted and Dictated by Pepe Seo MD Transcribed by Regla Harry Authenticated and [facility]
--- NOTE | 2022-07-15 06:39 | HMH.EDFALL ---
Discharge Plan Disposition Patient Disposition: Xfer Short-Term Hosp Condition: Good Chief Complaint: Fall Prescriptions Prescriptions: No Action mirtazapine 15 mg tablet 15 mg PO HS Januvia 100 mg tablet 100 mg PO DAILY ropinirole 0.5 mg tablet 1 mg PO HS Rx Instructions: administer 1-3 hours before bedtime (DME) pen needle, diabetic [Droplet Pen Needle] 32 gauge x 5/32 needle See Rx Instructions .ROUTE .MEDSUPPLY Qty: 50 Rx Instructions: As directed (DME) insulin syringe-needle U-100 1 mL 31 gauge x 5/16 syringe See Rx Instructions .ROUTE .MEDSUPPLY Qty: 10 Rx Instructions: As directed triamcinolone acetonide 0.025 % ointment 1 applic TP DAILY Qty: 80 0RF insulin glargine 100 unit/mL (3 mL) insulin pen 60 unit SQ HS 90 Days Qty: 54 0RF rosuvastatin 20 mg tablet 20 mg PO DAILY 90 Days Qty: 90 0RF insulin asp prt-insulin aspart 100 unit/mL (70-30) solution 20 unit SQ .Noon Rx Instructions: with lunch tamsulosin 0.4 mg capsule 0.4 mg PO HS Qty: 30 2RF escitalopram oxalate [Lexapro] 10 mg tablet 10 mg PO DAILY Qty: 30 2RF nitroglycerin 0.4 mg tablet, sublingual 0.4 mg SUBLINGUAL Q5M PRN (Reason: chest pain) Qty: 25 0RF Rx Instructions: do not exceed 3 doses in 15 minutes aspirin 81 MG tablet,chewable 81 mg PO DAILY (DME) blood-glucose meter, drum-type 1 EACH kit 1 each * TID Rx Instructions: Use as directed TID to test Blood Sugar cefdinir 300 mg capsule 300 mg PO BID 10 Days Qty: 20 0RF Referrals Follow up/Referrals: Torsten Triana MD [Primary Care Provider] - See instructions Clinical Impressions Clinical Impression: Fracture tibia/fibula Stand Alone Forms Stand Alone Forms: Transfer Record - ED Discharge ED Provider: Robb Quan HPI General Chief Complaint: Fall Stated Complaint: Fall/possible tib fib fx Time Seen by Provider: 07/15/22 06:09 Mode of Arrival: EMS Source of Information: Patient and EMS Limitations: No Limitations Description of Symptoms (Recalled from ER Triage Doc. by RN): pt states was walking to bathroom and fell. pt c/o lt leg pain History of Present Illness HPI Narrative: 86-year-old male presents with EMS after a fall tried to walk to the bathroom after getting out of bed. He is unsure exactly how he fell whether it was a slip or twist of his leg but he ultimately fell to the ground does not think he had a positive loss of consciousness but states that everything is kind of a blur because it was dark. Patient has a deformity to the left lower extremity. She also complaining of pain over the right hip and mild headache. Does not take blood thinners. Related Data Home Medications Medication Instructions Recorded Confirmed aspirin 81 mg chewable tablet 81 mg PO DAILY [facility] 08/14/18 02/26/22 mirtazapine 15 mg tablet 15 mg PO HS Mood 06/07/20 02/26/22 ropinirole 0.5 mg tablet 1 mg PO HS Restless leg 01/08/21 02/26/22 sitagliptin phosphate 100 mg 100 mg PO DAILY Diabetes 01/08/21 02/26/22 tablet (Januvia) blood-glucose meter, drum-type 07/05/21 02/26/22 pen needle, diabetic 32 gauge x #50 ea 08/30/21 02/26/22 (Droplet Pen Needle) insulin syringe-needle U-100 1 mL #10 ea 11/08/21 02/26/22 31 gauge x 07/30 insulin aspar prt-insulin aspart 20 unit SQ .Noon Diabetes 12/13/21 02/26/22 100 unit/mL (70-30) subcutaneous soln Previous Rx's Medication Instructions Recorded triamcinolone acetonide 0.025 % 1 applic topical DAILY #80 grams 10/18/21 topical ointment insulin glargine 100 unit/mL (3 60 unit (0.6 mL) SQ HS Diabetes 90 11/27/21 mL) subcutaneous pen days #54 mL rosuvastatin 20 mg tablet 20 mg PO DAILY High cholesterol 90 11/27/21 days #90 tabs escitalopram oxalate 10 mg tablet 10 mg PO DAILY #30 tabs 12/13/21 (Lexapro) tamsulosin 0.4 mg capsule 0.4 mg PO HS #30 caps 12/13/21 nitroglycerin 0.4 m
[2022-07-15 06:45] LABS: Alanine Aminotransferase 22 U/L (12-78); Albumin Level 4.4 g/dl (3.5-5.0); Albumin/Globulin Ratio 1.3 (1.1-1.8); Alkaline Phosphatase 57 U/L (38-126); Anion Gap 16.3 mEq/L (5-15); Aspartate Amino Transferase 34 U/L (17-59); Bilirubin,Total 0.4 mg/dl (0.2-1.3); Blood Urea Nitrogen 31 mg/dl (9-20); Calcium 8.7 mg/dl (8.4-10.2); Carbon Dioxide 22 mmol/L (22.0-30.0); Chloride 105 mmol/L (98-107); Creatinine Clearance Estimated 46 mL/min (50-200); Estimated Glomerular Filt Rate 44 ml/min (>60); GFR (African American) 54 ML/MIN (>60); Globulin 3.4 g/dL (1.3-3.2); Glucose 72 mg/dl (74-100); Potassium 4.3 mmoL/L (3.5-5.1); Sodium 139 mmol/L (136-145); Total Protein,Serum 7.8 g/dl (6.3-8.2)
--- NOTE | 2022-07-15 06:48 | PC.NURSE ---
Pt gone to RAD via stretcher
[2022-07-15 06:51] LABS: POC Glucose,Bedside 82 (70-110)
[2022-07-15 06:54] LABS: Basophils % 0.1 % (0.1-2.0); Eosinophils # 0.3 K/mm3 (0.0-0.4); Eosinophils % 3.1 % (0.1-12.0); Hematocrit 36.5 % (42.0-52.0); Hemoglobin 11.9 g/dL (14.1-18.0); Lymphocytes # 0.6 K/mm3 (0.7-4.5); Lymphocytes % 6.6 % (10-50); Mean Corpuscular HGB Conc 32.5 g/dL (31.8-35.4); Mean Corpuscular Hemoglobin 28.9 pg (27.0-31.2); Mean Platelet Volume 8.7 fl (7.4-10.4); Monocytes # 0.3 K/mm3 (0.1-1.0); Monocytes % 4.1 % (1.7-9.3); Neutrophils # 7.2 K/mm3 (1.8-7.8); Platelet Count 172 K/mm3 (142-424); Red Cell Distribution Width 14.5 % (11.5-17.5); White Blood Count 8.4 K/mm3 (4.8-10.8)
[2022-07-15 06:55] LABS: MANUAL DIFFERENTIAL MANUAL DIFFERENTIAL (MANUAL DIFF)
[2022-07-15 07:12] LABS: Activated Partial Thrombo Time 19.6 seconds (22.8-30.6); INR 0.97 (0.9-1.1); Prothrombin Time 10.5 seconds (10.1-12.5)
--- NOTE | 2022-07-15 07:14 | PC.NURSE ---
Shift report given to Janet Simon RN & Anamaria Deshpande RN.
--- NOTE | 2022-07-15 07:15 | PC.NURSE ---
PT RETURNED FROM CT/XR
--- NOTE | 2022-07-15 07:16 | PC.NURSE ---
From CT via stretcher
--- NOTE | 2022-07-15 07:29 | PC.NURSE ---
Called [facility] for Ortho consult.
[2022-07-15 07:32] VITALS: BP 92/47; PULSE 77; O2SAT 91
--- NOTE | 2022-07-15 07:32 | PC.NURSE ---
ROUNDED ON PT, FAMILY AT BEDSIDE. NO NEEDS VOICED
--- NOTE | 2022-07-15 07:34 | PC.NURSE ---
Dr. Quan speaking with Dr. Heredia, MDs
[2022-07-15 07:35] LABS: Coronavirus 19, PCR Not Detected (NotDetected); Influenza A, PCR Not Detected (NotDetected); Influenza B, PCR Not Detected (NotDetected)
--- NOTE | 2022-07-15 07:37 | PC.NURSE ---
Spoke with Miguel in radiology to have imaging disc burned
[2022-07-15 07:39] VITALS: BP 100/54; PULSE 82; RESP 16; O2SAT 91
--- NOTE | 2022-07-15 07:39 | PC.NURSE ---
DR LANGSTON AT BEDSIDE TO UPDATE PT AND FAMILY ON POC
--- NOTE | 2022-07-15 07:48 | PC.NURSE ---
LLE pulses dopplered and marked LLE propped up on a pillow with velcro ems erinn splint in place, ER MD states to leave splint in place. Small skin tear to cortez area on LLE, ss drainage noted from area, approx 1-2 cm in length. ER MD aware of skin tear.
--- NOTE | 2022-07-15 07:55 | PC.NURSE ---
report called to DUANE ortiz at ER at this time
--- NOTE | 2022-07-15 07:58 | PC.NURSE ---
notified [facility] of transport to ER, states will be here in approx 30 minutes when transfer truck gets there. ER MD aware of that time line and states is okay.
[2022-07-15 08:17] LABS: Eosinophils % 1 % (0-3); Lymphocytes % 12 % (10-50); Monocytes % 2 % (2-9); Neutrophils % 85 % (42-76); Platelet Estimate Normal; RBC Morphology Normal; Total Cells Counted 100
[2022-07-15 08:22] VITALS: BP 106/61; PULSE 88; O2SAT 92
[2022-07-15 08:30] VITALS: BP 105/57; PULSE 84; O2SAT 92
--- NOTE | 2022-07-15 08:48 | PC.NURSE ---
[facility] at to transfer patient.
--- NOTE | 2022-07-15 08:55 | PC.NURSE ---
Transferred to EMS stretcher with assistance x 4, no complications.
[2022-07-15 08:56] VITALS: BP 105/57; PULSE 78; RESP 16; TEMP 37; O2SAT 92
== END 2022-07-15 08:56 | disposition short-term general hospital (02) ==
PROVIDERS: Emergency Provider Student in an Organized Health Care Education/Training Program; PCP Internal Medicine Adolescent Medicine
DX: S82.832A Other fracture of upper and lower end of left fibula, initial encounter for closed fracture (principal); S82.202A Unspecified fracture of shaft of left tibia, initial encounter for closed fracture; R51.9 Headache, unspecified; W18.30XA Fall on same level, unspecified, initial encounter
CPT/HCPCS: 70450; 72125; 73521; 73590; 80053; 82962; 85007; 85025; 85610; 85730; 96374; 96375; 99285; C9803; J2405; U0003; U0005

== ENCOUNTER → 2022-11-19 14:21 | Outpatient (POV) | payer MEDICARE, SELFPAY | PROVIDERS: Visit Provider Dermatology | DX: Z00.00 Encounter for general adult medical examination without abnormal findings (principal) ==

== ENCOUNTER 2023-04-24 11:35 | Outpatient (CLI) | payer MEDICARE, SELFPAY ==
[2023-04-24 12:34] LABS: Alanine Aminotransferase 23 U/L (12-78); Albumin Level 4.1 g/dl (3.5-5.0); Albumin/Globulin Ratio 1.4 (1.1-1.8); Alkaline Phosphatase 51 U/L (38-126); Anion Gap 15.6 mEq/L (5-15); Aspartate Amino Transferase 26 U/L (17-59); Bilirubin,Total 0.4 mg/dl (0.2-1.3); Blood Urea Nitrogen 28 mg/dl (9-20); Calcium 8.9 mg/dl (8.4-10.2); Carbon Dioxide 21 mmol/L (22.0-30.0); Chloride 109 mmol/L (98-107); Estimated Glomerular Filt Rate 41 ml/min (>60); GFR (African American) 50 ML/MIN (>60); Globulin 2.9 g/dL (1.3-3.2); Glucose 220 mg/dl (74-100); Potassium 4.6 mmoL/L (3.5-5.1); Sodium 141 mmol/L (136-145)
[2023-04-24 13:06] LABS: Prostate Specific Ag Screen < 0.1 ng/ml (0.0-4.0)
[2023-04-24 23:47] LABS: Hemoglobin A1C 8.7 % (4.0-6.0)
== END 2023-04-24 23:59 ==
LOC: LAB 11:39
PROVIDERS: PCP Internal Medicine Adolescent Medicine; Visit Provider Urology
DX: E11.40 Type 2 diabetes mellitus with diabetic neuropathy, unspecified (principal); C61 Malignant neoplasm of prostate; Z79.4 Long term (current) use of insulin; Z79.84 Long term (current) use of oral hypoglycemic drugs; Z12.5 Encounter for screening for malignant neoplasm of prostate
CPT/HCPCS: 36415; 80053; 83036; G0103

== ENCOUNTER 2023-06-11 07:48 | Day surgery (SDC) | payer MEDICARE, SELFPAY ==
[2023-06-11] VITALS (13 sets, daily range): BP systolic 107–152; BP diastolic 58–88; PULSE 67–87; RESP 15–18; TEMP 36.6; O2SAT 93–98; BMI 28.4
--- NOTE | 2023-06-11 07:07 | IR_ITS ---
APPROVED REPORT Patient Location: Outpatient PROCEDURES Left heart catheterization Left ventriculogram Selective coronary angiogram Selective engage the left internal mammary artery the LAD Selective engagement of saphenous vein graft to the circumflex artery Selective engagement of saphenous vein graft to the right coronary Bilateral selective renal angiography INDICATION Coronary artery disease, History of coronary bypass surgery, Angina pectoris, Renal insufficiency creatinine 1.6, Suspect renovascular hypertension from renal artery stenosis Informed consent was obtained prior to the procedure. COMPLICATIONS NONE Estimated Blood Loss: LESS THAN 10 ML TECHNIQUE One percent lidocaine used to anesthetize the right groin. The right femoral artery was accessed via the Seldinger technique and a 5 Thai sheath was placed in the right femoral artery. A JL 4, JR4 catheter were used to perform left heart catheterization, left ventriculogram selective coronary angiography as well as selective engagement of the 2 vein grafts and the left internal mammary artery. The JR4 catheter was used to perform bilateral selective renal angiography. At the end of the procedure the patient was transferred to the postop holding area in stable condition for sheath removal. ANGIOGRAPHIC RESULTS The left main artery Has an ostial 90% stenosis The left anterior descending artery Is an ostial 90% stenosis with evidence of competitive flow from the left internal mammary artery The circumflex artery Ostially occluded The right coronary artery Proximally occluded The [place]RIST[place] ventriculogram reveals Preserved at 55% The left ventricular end-diastolic pressure 20 mmHg There appears to be a 40 mm trans aortic valve gradient upon pullback with a JR4 catheter VALDOVINOS to LAD is patent Saphenous to circumflex artery patent Saphenous dominant right coronary artery patent Right renal artery singular normal Left renal artery singular normal IMPRESSION Adequate three-vessel coronary revascularization as described above Severe [place] three-vessel disease as described above Preserved ejection fraction Elevated LVEDP 40 mm transaortic valve gradient upon pullback with a 5 Thai JR4 catheter Normal renal arteries PLAN 1. Medical management for coronary disease 2. At this point medical management for aortic stenosis. Recommend echo correlation Electronically signed by : Wil Villanueva MD 06/11/2023 10:57:52
[2023-06-11 08:29] LABS: Basophils % 0.5 % (0.1-2.0); Eosinophils # 0.4 K/mm3 (0.0-0.4); Hematocrit 37.8 % (42.0-52.0); Hemoglobin 12.3 g/dL (14.1-18.0); Lymphocytes # 1.3 K/mm3 (0.7-4.5); Lymphocytes % 25.6 % (10-50); Mean Corpuscular HGB Conc 32.6 g/dL (31.8-35.4); Mean Corpuscular Hemoglobin 31.3 pg (27.0-31.2); Mean Platelet Volume 9.8 fl (7.4-10.4); Monocytes # 0.3 K/mm3 (0.1-1.0); Monocytes % 5.7 % (1.7-9.3); Neutrophils # 3.1 K/mm3 (1.8-7.8); Neutrophils % 61.2 % (37.0-80.0); Platelet Count 145 K/mm3 (142-424); Red Blood Count 3.94 M/mm3 (4.60-6.20); Red Cell Distribution Width 14.4 % (11.5-17.5)
[2023-06-11 08:32] LABS: Chloride 113 mmol/L (98-107); Potassium 4.8 mmoL/L (3.5-5.1); Sodium 140 mmol/L (136-145)
[2023-06-11 08:35] LABS: Anion Gap 11.8 mEq/L (5-15); Blood Urea Nitrogen 28 mg/dl (9-20); Carbon Dioxide 20 mmol/L (22.0-30.0); Creatinine Clearance Estimated 42 mL/min (50-200); Estimated Glomerular Filt Rate 41 ml/min (>60); GFR (African American) 50 ML/MIN (>60)
[2023-06-11 08:36] LABS: Glucose 160 mg/dl (74-100)
[2023-06-11] MEDS: diphenhydrAMINE 50MG/ML VIAL 50 MG IV (09:58)
[2023-06-11] MEDS: LIDOCAINE 1% 10ML MDV 20 ML IJ (09:58)
[2023-06-11] MEDS: HEPARIN 1,000 UNITS/500ML NS (CATH LAB) 3000 UNIT IV (09:58)
[2023-06-11] MEDS: 0.9 % SODIUM CHLORIDE 500 ML 25 ML IV (09:59)
[2023-06-11] MEDS: MIDAZOLAM HCL 1MG/1ML 5ML VIAL 1 MG IV (10:10)
[2023-06-11] MEDS: FENTANYL 100MCG/2ML VIAL 50 MCG IV (10:10)
[2023-06-11] MEDS: IOPAMIDOL-370 (76%);100ML BOTTLE 50 ML IV (11:12)
[2023-06-11] MEDS: ACETAMINOPHEN 500MG TAB 500 MG PO (13:43)
== END 2023-06-11 14:20 | disposition home or self-care (01) ==
PROVIDERS: PCP Internal Medicine Adolescent Medicine; Visit Provider Internal Medicine
DX: I25.118 Atherosclerotic heart disease of native coronary artery with other forms of angina pectoris (principal); Z95.1 Presence of aortocoronary bypass graft; R06.02 Shortness of breath; I10 Essential (primary) hypertension; I70.1 Atherosclerosis of renal artery; E11.9 Type 2 diabetes mellitus without complications; Z79.4 Long term (current) use of insulin; Z79.899 Other long term (current) drug therapy
CPT/HCPCS: 36252; 80048; 85025; 93459; 99152; C1725; C1769; C1894; J1644; Q9967

== ENCOUNTER 2023-06-27 11:05 | Outpatient (CLI) | payer MEDICARE, SELFPAY ==
--- NOTE | 2023-06-27 11:06 | CA_ITS ---
APPROVED REPORT EXAM: Comprehensive 2D, Doppler, and color-flow Echocardiogram Element Burner: CHEIKH Shore, RVS Ht: 5 ft 10 in Wt: 202lbs BSA: 2.10 BP: 110/67 mmHg Indications: , Dyspnea, OHS, HTN, TDS 2D Dimensions Left Atrium 4.35 cm M: 3.0 - 4.0 LA Volume 72.40 mL LA Volume Index 34.696282 mL/m2 (M/F) 16-34 M-Mode Dimensions RVDd 2.78 cm (0.9-2.6) LA Diam 4.60 cm (1.9-4.0) LVDd 5.36 cm (3.5-5.7) LVDs 4.15 cm (3.5-5.7) IVSd 1.13 cm (0.6-1.1) PWd 1.25 cm (0.6-1.1) EF (Teich) 45.00% EPSs 1.53 cm FS 22.60% EDV (Teich) 138.90 mL TAPSE 1.27 (<1.7) ESV (Teich) 76.40 mL LV Diastology E Decel Time 427 (160-240 msec) E/A Ratio 0.58 MED A' 10.20 cm/s LAT A' 10.50 cm/s Aortic Valve BRIDGER Index 1.01 cm2/m2 AoV Peak Maximilian. 215.0 (50-130 cm/s) AO Peak GR. 18.90 mmHg AO Mean GR. 9.30 (<5 mmHg) AO VTI 33.5 (18-25 cm) BRIDGER (VTI) 2.18 (2.5-4.5 cm2) Mitral Valve MV A Velocity 158.0 (40-130 cm/s) E/A Ratio 0.58 Pulmonary Valve PV Peak Velocity 89.0 (50-150 cm/s) NH End VMAX 194.0 cm/s Tricuspid Valve TR P. Velocity 194.00 cm/s Left Ventricle The left ventricle is normal size. The left ventricular systolic function is normal. The left ventricular ejection fraction is within the normal range. There is increased LV wall thickness. There is normal LV segmental wall motion. Transmitral Doppler flow pattern suggests impaired LV relaxation. LVEF is 55%. Right Ventricle The right ventricle is normal size The right ventricular systolic function is normal. Atria The left atrium is mildly dilated. Right atrium is mildly dilated. There is no Doppler evidence of interatrial shunt. Aortic Valve The aortic valve is mildly thickened. Mild aortic stenosis. BRIDGER by continuity equation 1.8 cm???. Peak velocity 2.6 m/s. Mean AV gradient is 12 mmHg. Max AV gradient is 25 mmHg. Mild aortic regurgitation. Mitral Valve The mitral valve leaflets are mildly thickened. No evidence of mitral valve stenosis. Mild mitral regurgitation. Tricuspid Valve The tricuspid valve leaflets are thin and pliable. Mild tricuspid regurgitation. RVSP is normal. Pulmonic Valve The pulmonary valve is normal in structure. Mild pulmonic regurgitation. Great Vessels The aortic root is normal in size. The ascending aorta is not well visualized. IVC is normal in size and collapses >50% with inspiration. Pericardium There is no pericardial effusion. Other Information Study Quality: Technically Difficult Conclusion Technically difficult study due to poor accoustic windows. Normal biventricular systolic function. Mild biatrial dilation. Mild AI, mild MR, mild TR, mild NH. Mild . BRIDGER by continuity equation 1.8 cm???. Peak velocity 2.6 m/s. Mean AV gradient is 12 mmHg. Max AV gradient is 25 mmHg. Compared to prior study from 2020, the severity of appears unchanged. Electronically signed by : Melissa Edwards MD 07/02/2023 09:53:02
== END 2023-06-27 23:59 ==
LOC: RT 11:06
PROVIDERS: PCP Internal Medicine Adolescent Medicine; Visit Provider Internal Medicine
DX: I25.118 Atherosclerotic heart disease of native coronary artery with other forms of angina pectoris (principal); Z95.1 Presence of aortocoronary bypass graft; R06.02 Shortness of breath; R06.00 Dyspnea, unspecified; R06.01 Orthopnea; R94.31 Abnormal electrocardiogram [ECG] [EKG]
CPT/HCPCS: 93306

== ENCOUNTER 2023-10-17 08:12 | Outpatient (CLI) | payer MEDICARE, SELFPAY ==
--- NOTE | 2023-10-17 08:13 | FL_ITS ---
FINAL REPORT CLINICAL HISTORY: difficulty swallowing 0.52 sec DAP 609.05 FINDINGS: ESOPHAGRAM HISTORY: Dysphagia. PROCEDURE: The patient ingested barium. Effervescent crystals were also administered. Spot and overhead films were obtained. 12 total images were performed. FINDINGS: There is esophageal dysmotility. There is a moderate-sized hiatal hernia. There is gastroesophageal reflux to the level of aortic arch. There is no esophageal mucosal abnormality. Fluoroscopy exposure time: 52 seconds. Radiation exposure in reference to air kerma: 94 mGy IMPRESSION: 1. Esophageal dysmotility. 2. Gastroesophageal reflux to the level of the aortic arch. 3. Moderate-sized hiatal hernia. Films reviewed , interpreted and dictated by Dr. Seo. Transcribed by Tyrese Cisneros PA-C. Reviewed, Interpreted and Dictated by Pepe Seo MD Transcribed by PAM Ramirez Authenticated and [facility]
--- NOTE | 2023-10-17 08:13 | CT_ITS ---
FINAL REPORT TECHNIQUE: Thin section axial CT images with coronal and sagittal reformats were performed through the neck. This study was performed with techniques to keep radiation doses as low as reasonably achievable (ALARA). Individualized dose reduction techniques using automated exposure control or adjustment of mA and/or kV according to the patient's size were employed. CLINICAL HISTORY: difficulty swallowing COMPARISON: None FINDINGS: CT NECK SOFT TISSUES WITHOUT CONTRAST: Dense vascular calcifications are present in the carotid arteries bilaterally. No adenopathy or mass lesion is present . Salivary glands are normal. Larynx is unremarkable. The left lobe of the thyroid gland has been surgically resected, with small clips in the surgical bed. There are advanced hypertrophic degenerative changes present at the C5-6 and C6-7 levels. There is bilateral neural foraminal narrowing at the C3-4 level, left-sided neural foraminal narrowing at the C5-6 level, and bilateral C6-7 neuroforaminal narrowing. There is moderate hypertrophic change of the bilateral sternoclavicular joints. IMPRESSION: Advanced degenerative change in the cervical spine, most prominent at the C5-6 and C6-7 levels. Prior left thyroidectomy. Dense vascular calcifications are present in the carotid arteries bilaterally. Reviewed, Interpreted and Dictated by Pepe Seo MD Transcribed by Catina Griffith Authenticated and [facility]
[2023-10-17] MEDS: BARIUM SULFATE(LIQUID E-Z-PAQUE);355ML BOTTLE 355 ML PO (09:07)
[2023-10-17] MEDS: BARIUM SULFATE (E-Z-HD 340GM);135ML BOTTLE 135 ML PO (09:07)
== END 2023-10-17 23:59 | disposition home or self-care (01) ==
LOC: RAD 08:13
PROVIDERS: PCP Internal Medicine Adolescent Medicine; Visit Provider Nurse Practitioner
DX: R13.10 Dysphagia, unspecified (principal)
CPT/HCPCS: 70490; 74220

== ENCOUNTER 2023-12-25 07:43 | Day surgery (SDC) | payer MEDICARE, SELFPAY ==
[2023-12-25] MEDS: LACTATED RINGERS 1000ML 1,000 ML 25 ML IV (07:56)
[2023-12-25 08:05] VITALS: BP 120/50; PULSE 95; RESP 18; TEMP 36.1; O2SAT 95; BMI 41.5
[2023-12-25 08:10] LABS: POC Glucose,Bedside 145 (70-110)
--- NOTE | 2023-12-25 08:17 | P.PNANES_ITS ---
[facility] Disclaimer: The information contained in this section may have been updated after the patient was seen, as this information can be updated by other users. Medical History Hiatal hernia GERD (gastroesophageal reflux disease) Esophageal dysmotility Thyromegaly Dysphagia Hoarseness HLD (hyperlipidemia) Aortic stenosis Osteoarthritis, multiple sites Back pain with history of spinal surgery Dementia Hematuria Paresthesias Generalized anxiety disorder GERD without esophagitis Dizziness PAD (peripheral artery disease) Depression with anxiety Diabetes HTN (hypertension) CAD (coronary artery disease) Dyspnea Angina, class III Surgical History H/O coronary artery bypass surgery Family History Father Alcoholism Brother Alcoholism Mother Coronary artery disease Diabetes Heart attack Hypertension Social History Smoking Status: Former smoker tobacco type: cigars second hand exposure: No alcohol intake: never substance use type: denies use current occupational status: retired Travel in the last 8 weeks: None household members: spouse housing: house current occupational exposures/hazards: No caffeine: Yes [facility] Anesthesia Checklist Patient Identification Patient Identification: Arm Band and Verbal (Name & ) Structural Data Admitted From: Home Planned Operative Procedure/s: EGD Consent for Planned Operative Procedure(s) Verified: Yes Verified Documents: Surgical Consent and History and Physical NPO Status Verified Time NPO: 00:00 Additional verifications Anesthesia Reactions: No Airway Assessment Mallampati Score:: Class IV C-Spine Mobility Assessed: Yes TMJ Mobility Assessed: Yes Dentition: Poor Dentition Neurological Assessment Level of Consciousness: Awake Hx Seizures: No Numbness or tingling in extremities: No Anesthesia Plan Anesthesia Risk discussed: Yes Anesthesia Plan: Verified ASA Class: III Anesthesia Type: MAC
[2023-12-25 08:39] VITALS: O2SAT 5
--- NOTE | 2023-12-25 08:47 | P.PCN_ITS ---
[facility] Procedure Note Date: 12/25/23 Time: 08:47 Procedure Note:: Upper Endoscopy Procedure Report: Esophagogastroduodenoscopy with cold biopsies and TTS balloon dilation Endoscopost: Isaiah Miller II, MD Referring Physician: Torsten Triana M.D. Date of Procedure: December 25, 2023 Equipment: Olympus GIF 190 standard upper endoscope Sedation: MAC sedation Indications: Mr. Shoemaker is an 88-year-old gentleman with solid food dysphagia for approximately 1 year. This does come and go but occurs primarily with breads, meats and large tablets. He has never had esophageal dilation. He will occasionally have to regurgitate food content. He reports no weight loss or previous food impactions. He reports no heartburn, reflux, chest pain or abdominal pain. Procedure: Prior to the procedure, a history and physical exam was performed, and patient's medications and allergies were reviewed. The risks, benefits and alternatives of the sedation and procedure were discussed with the patient. All questions were answered and informed consent was obtained. The patient was brought to the procedure room. Patient identification and proposed procedure were verified by the physician and the nurse. The patient was placed in a left lateral decubitus position and the scope was passed under direct vision. Throughout the procedure, the patient's blood pressure, pulse, and oxygen saturations were monitored continuously. The upper GI endoscopy was accomplished without difficulty. The patient tolerated the procedure well. Findings: The scope was passed directly into the upper esophagus and advanced to the third portion of the duodenum. The post bulbar duodenum and duodenal bulb were normal with normal mucosa and conniventes. The scope was withdrawn through a normal duodenal bulb and pylorus into the stomach. There was moderate linear erythema of the antrum and body of the stomach with bile reflux. Cold biopsies were taken from the antrum and this was consistent with moderate bile gastropathy/reactive gastropathy. Upon retroflexion there was a small 1 to 2 cm hiatal hernia. The scope was then withdrawn into the esophagus. There was no evidence of any reflux esophagitis or Moreno's. There was a serrated Z-line and biopsies were taken at the GE junction. There were strong tertiary contractions and evidence of moderate to marked esophageal dysmotility. The entire esophagus was dilated to 60 [place]/20 mm with a TTS hydrostatic balloon. There was some resistance at the cricopharyngeus. The remainder of the esophageal mucosa was normal. Impression: 1. Moderate to marked esophageal dysmotility with nonerosive GERD and very small sliding 1 to 2 cm hiatal hernia?status post dilation to 20 mm 2. Bile reflux with moderate linear reactive gastropathy Plan: I will follow-up the biopsies. We will discuss treatment options for his dysphagia/esophageal dysmotility bile reflux. He may benefit from a fiber bowel regimen.
[2023-12-25 08:58] VITALS: BP 112/59; PULSE 83; RESP 16; TEMP 37.2; O2SAT 97
[2023-12-25 09:08] VITALS: BP 99/59; PULSE 82; RESP 16; O2SAT 95
[2023-12-25 09:18] VITALS: BP 117/75; PULSE 77; RESP 16; O2SAT 98
[2023-12-25 09:28] VITALS: BP 130/75; PULSE 75; RESP 16; O2SAT 97
== END 2023-12-25 09:35 | disposition home or self-care (01) ==
PROVIDERS: PCP Internal Medicine Adolescent Medicine; Visit Provider Internal Medicine Gastroenterology
PROC: 0DJ08ZZ Inspection of Upper Intestinal Tract, Via Natural or Artificial Opening Endoscopic (ICD-10-PCS; CPT 43235; principal; 2023-12-25 09:00)
DX: K21.9 Gastro-esophageal reflux disease without esophagitis (principal); K44.9 Diaphragmatic hernia without obstruction or gangrene; K31.9 Disease of stomach and duodenum, unspecified; E11.8 Type 2 diabetes mellitus with unspecified complications; Z79.84 Long term (current) use of oral hypoglycemic drugs
CPT/HCPCS: 43239; 43249; 82962; 88305; C1726; J7120

== ENCOUNTER 2024-06-28 14:54 | Outpatient (CLI) | payer MEDICARE, SELFPAY ==
--- NOTE | 2024-06-28 | CA_ITS ---
APPROVED REPORT EXAM: Comprehensive 2D, Doppler, and color-flow Echocardiogram Integration Consultant: Eva Herrera CRT Ht: 5 ft 10 in Wt: 191lbs BSA: 2.05 BP: 132/52 mmHg Indications: Shortness of Breath, Diabetes, CAD, Hyperlipidemia, Hypertension/HDD, Weakness, CABG, Pt has poor ultrasound windows apical images limited. 2D Dimensions LA Volume 77.10 mL LA Volume Index 36.70 mL/m2 (M/F) 16-34 M-Mode Dimensions RVDd 2.97 cm (0.9-2.6) LA Diam 4.23 cm (1.9-4.0) LVDd 4.08 cm (3.5-5.7) LVDs 3.08 cm (3.5-5.7) IVSd 2.04 cm (0.6-1.1) PWd 1.25 cm (0.6-1.1) EF (Teich) 49.20% FS 24.50% EDV (Teich) 73.40 mL TAPSE 2.02 (<1.7) ESV (Teich) 37.30 mL LV Diastology E Decel Time 227 (160-240 msec) E/A Ratio 0.56 MED A' 8.60 cm/s LAT A' 12.60 cm/s Aortic Valve BRIDGER Index 1.11 cm2/m2 AoV Peak Maximilian. 114.0 (50-130 cm/s) AO Peak GR. 5.20 mmHg AO Mean GR. 3.20 (<5 mmHg) AO VTI 22.6 (18-25 cm) BRIDGER (VTI) 2.33 (2.5-4.5 cm2) Mitral Valve MV E Max Maximilian. 103.0 (40-130 cm/s) MV A Velocity 183.0 (40-130 cm/s) E/A Ratio 0.56 MV Mean Gr. 5.50 (<2mmHg) MV PHT 66.0 ms Pulmonary Valve PV Peak Velocity 114.0 (50-150 cm/s) Tricuspid Valve TR P. Velocity 189.00 cm/s RAP Estimate 10.00 mmHg RVSP 24.30 mmHg Left Ventricle The left ventricle is normal size. The left ventricular systolic function is normal. The left ventricular ejection fraction is within the normal range. There is marked increase in LV wall thickness. IVSD is 1.4 cm. There is normal LV segmental wall motion. Diastolic function is indeterminate. LVEF is 55%. Right Ventricle The right ventricle is normal size. The right ventricular systolic function is normal. Atria The left atrium is mildly dilated. There is a bright echodensity noted in the left atrium. This may possibly represent artifact, but true LA mass or thrombus cannot be ruled out. Right atrium is mildly dilated. There is no Doppler evidence of interatrial shunt. Aortic Valve Aortic valve is moderately thickened. Mild aortic stenosis is present. BRIDGER by 2D planimetry is 1.8 cm???. The transaortic gradients are underestimated in the study due to technically difficult imaging. Trace aortic regurgitation. Mitral Valve Moderate mitral annular calcification. The mitral valve leaflets are moderately thickened. Mild mitral stenosis is present. Mean MV gradient is 6 mmHg (HR 77 bpm). Mild mitral regurgitation. Tricuspid Valve The tricuspid valve leaflets are thin and pliable. Trace tricuspid regurgitation. There is insufficient TR jet to estimate RVSP. Trace pulmonic regurgitation. Pulmonic Valve The pulmonary valve is normal in structure. Great Vessels The aortic root is normal in size. IVC is normal in size and collapses >50% with inspiration. Pericardium There is no pericardial effusion. Other Information Study Quality: Technically Difficult Conclusion Technically difficult study due to poor acoustic windows. Normal biventricular systolic function. Marked increased LV wall thickness. IVSD is 1.4 cm. Biatrial dilation. Mild (BRIDGER by 2D planimetry is 1.8 cm???. The transaortic gradients are underestimated in the study due to technically difficult imaging). Moderate mitral annular calcification and MV leaflet thickening. Mild MS. Mean MV gradient 6 mmHg (HR 77 bpm). Incidental finding of bright echodensity noted in the left atrium. This may possibly represent artifact, but true LA mass or thrombus cannot be ruled out. In the setting of marked increased LV wall thickness, and possible LA mass, further evaluation with cardiac MRI (cardiomyopathy protocol + LA mass protocol + AV views) is suggested to rule out infiltrative cardiomyopathy and presence of LA mass. Electronically signed by : Melissa Edwards MD 06/29/2024 13:17:45
== END 2024-06-28 23:59 | disposition home or self-care (01) ==
PROVIDERS: PCP Internal Medicine Adolescent Medicine; Visit Provider Nurse Practitioner
DX: I51.7 Cardiomegaly (principal); I34.2 Nonrheumatic mitral (valve) stenosis; I35.0 Nonrheumatic aortic (valve) stenosis; Z95.1 Presence of aortocoronary bypass graft; R07.89 Other chest pain; R53.1 Weakness
CPT/HCPCS: 93306